=== PATIENT | female | born 1955 | race American Indian/Alaskan Native ===

== ENCOUNTER 2018-03-03 17:13 | Inpatient (IN) | payer MEDICAID ==
--- NOTE | 2018-03-03 17:52 | Emergency Department Report ---
ED CPR HPI - General Stated Complaint: CARDIAC ARREST Time Seen by Provider: 03/03/18 17:13 Source: EMS Mode of arrival: Stretcher Limitations: Altered Mental Status, Physical Limitation - History of Present Illness MD Complaint: found unresponsive Place: NH/SNF Bystander CPR Performed: No AED Applied by Bystander/It Field Technician: No Shock Advised: No Initial Findings in the Field: unresponsive, no respirations, no pulse ROSC in the Field: Yes Associated Injuries: No Treatments Prior to Arrival: intubation, chest compressions, epinephrine mgs # ( 3), sodium bicarbonate, glucose, other (narcan) - Related Data Home Medications Medication Instructions Recorded Confirmed Last Taken Methimazole [Tapazole] 5 mg PO DAILY 03/03/18 03/03/18 Unknown Metoprolol Xl [Metoprolol 100 mg PO DAILY 03/03/18 03/03/18 Unknown SUCCINATE ER TAB] Morphine Sulfate [Morphine Sulfate 7.5 mg PO Q4-6H PRN 03/03/18 03/03/18 Unknown IR] Nitrofurantoin Macrocrystal 100 mg PO BID 03/03/18 03/03/18 Unknown [Nitrofurantoin] Omeprazole 20 mg PO DAILY 03/03/18 03/03/18 Unknown Allergies Allergy/AdvReac Type Severity Reaction Status Date / Time No Known Allergies Allergy Unverified 03/03/18 18:07 ED Review of Systems ROS: Stated complaint: CARDIAC ARREST Other details as noted in HPI Comment: Unobtainable due to pts medical conditions ED Past Medical Hx - Past Medical History Previous Medical History?: Yes Hx Hypertension: Yes - Surgical History Past Surgical History?: Yes - Family History Family history: no significant - Social History Smoking Status: Unknown if ever smoked Substance Use Type: Other (unknown) - Medications Home Medications: Home Medications Medication Instructions Recorded Confirmed Last Taken Type Methimazole [Tapazole] 5 mg PO DAILY 03/03/18 03/03/18 Unknown History Metoprolol Xl [Metoprolol 100 mg PO DAILY 03/03/18 03/03/18 Unknown History SUCCINATE ER TAB] Morphine Sulfate [Morphine Sulfate 7.5 mg PO Q4-6H PRN 03/03/18 03/03/18 Unknown History IR] Nitrofurantoin Macrocrystal 100 mg PO BID 03/03/18 03/03/18 Unknown History [Nitrofurantoin] Omeprazole 20 mg PO DAILY 03/03/18 03/03/18 Unknown History ED Physical Exam - General Limitations: Altered Mental Status, Physical Limitation General appearance: obtunded - Head Head exam: Present: atraumatic, normocephalic - Eye Eye exam: Present: other (post fixed and dilated). Absent: PERRL Pupils: Absent: normal accommodation - ENT ENT exam: Present: mucous membranes dry - Neck Neck exam: Present: normal inspection - Respiratory Respiratory exam: Present: normal lung sounds bilaterally, other (ET tube placement verified with bilateral breath sounds. No sounds over the epigastrium ) - Cardiovascular Cardiovascular Exam: Present: regular rate, normal rhythm. Absent: systolic murmur, diastolic murmur, rubs, gallop - GI/Abdominal GI/Abdominal exam: Present: soft, hypoactive bowel sounds. Absent: distended - Extremities Exam Extremities exam: Present: normal inspection - Neurological Exam Neurological exam: Present: altered - Skin Skin exam: Present: warm, dry, intact, normal color. Absent: rash ED Course Vital Signs 03/03/18 03/03/18 03/03/18 17:20 17:39 18:20 Temperature 97.3 F L Pulse Rate 91 H 74 80 Respiratory 18 Rate Blood Pressure 41/23 70/40 91/39 O2 Sat by Pulse 100 100 100 Oximetry 03/03/18 03/03/18 03/03/18 18:30 18:33 18:40 Temperature Pulse Rate 73 69 Respiratory 17 18 18 Rate Blood Pressure 76/36 72/35 O2 Sat by Pulse 99 87 93 Oximetry 03/03/18 03/03/18 03/03/18 18:50 19:00 19:10 Temperature Pulse Rate 71 68 72 Respiratory 18 17 18 Rate Blood Pressure 83/38 83/36 90/54 O2 Sat by Pulse 99 95 99 Oximetry 03/03/18 03/03/18 03/03/18 19:21 19:30 19:40 Temperature Pulse Rate 81 72 72 Respiratory 18 18 18 Rate Blood Pressure 138/72 101/60 108/63 O2 Sat by Pulse 100 96 Oximetry 03/03/18 03/03/18 03/03/18 19:50 20:00 20:10 Temperature Pulse Rate 75 77 78 Respiratory 18 18 24 Rate Blood Pressure 114/55 120/65 118/73 O2 Sat by Pulse 96 95 95 Oximetry 03/03/18 03/03/18 03/03/18 20:30 20:45 21:00 Temperature Pulse Rate 66 66 63 Respiratory 24 24 24 Rate Blood Pressure 116/59 110/65 103/67 O2 Sat by Pulse 99 99 99 Oximetry 03/03/18 03/03/18 03/03/18 21:15 21:31 21:45 Temperature Pulse Rate 61 60 58 L Respiratory 24 24 24 Rate Blood Pressure 101/63 101/23 90/68 O2 Sat by Pulse 100 100 100 Oximetry 03/03/18 03/03/18 03/03/18 22:01 22:15 22:30 Temperature Pulse Rate 57 L 78 52 L Respiratory 23 25 H 24 Rate Blood Pressure 58/26 174/84 57/35 O2 Sat by Pulse 100 100 100 Oximetry 03/03/18 22:45 Temperature Pulse Rate 50 L Respiratory 21 Rate Blood Pressure 107/56 O2 Sat by Pulse 100 Oximetry - Reevaluation(s) Reevaluation #1: Patient arrived via EMS. Per EMS, patient was found down for an unknown amount of time no respirations or pulses noted. CPR was initiated ACLS meds given ROS see in the field. EMS placed patient on a epi drip at 101. Blood pressure is low. palpable pulse noted. Will continue to monitor vital signs her blood pressure. We'll give bicarbonate for acidosis. ABG reviewed. We'll adjust treatment when necessary 03/03/18 17:05 Reevaluation #2: Blood pressure dropped again patient is hypotensive. We'll start a saline bolus again. Patient responded well to bolus, her blood pressure stabilized. 03/03/18 23: Reevaluation #3: Blood pressure is stabilizing. Patient continues to have bullous antibiotics were started and patient continue on the epinephrine drip 03/03/18 23:45 - Consultations Consultation #1: Discussed case with hospitalist. Hospitalist consulted for admission. Hospitalist to admit patient. Dr. Rai to assume care. 03/03/18 22:00 - EJ/Peripheral Line Neck R Time Out Performed: Yes Indications: nurses unable to establis Skin Cleansed in Sterile Fashion: Yes Size: 20 Dressing Placed: Tegaderm, tape Patient Tolerated Procedure: well ED Medical Decision Making - Lab Data Result diagrams: 03/03/18 19:31 03/03/18 19:31 - EKG Data -: EKG Interpreted by Me EKG shows normal: sinus rhythm, axis, QRS complexes, ST-T waves - EKG Data Interpretation: other (prolonged q-t) - Radiology Data Radiology results: report reviewed chest xr shows left pna and et in good position. - Medical Decision Making Patient is 62-year-old female that presents emergency room with status post cardiac respiratory arrest. Patient has been resuscitated. Positive ROSC. Patient to be admitted to the hospitalist service for further evaluation treatment. Patient was admitted to the ICU. Patient found to have a left lung pneumonia on chest x-ray. Patient will be treating accordingly. Patient was found to have a metabolic/respiratory acidosis as well as lactic acidosis. Hospitalist to assume care. - Differential Diagnosis cardia arrest. pna. sepsis. arrythmia/ Critical care attestation.: If time is entered above; I have spent that time in minutes in the direct care of this critically ill patient, excluding procedure time. Critical Care Time: 55 minutes spent for cc time ED Disposition Clinical Impression: Cardiac arrest, Respiratory arrest, Signs of return of spontaneous circulation , Respiratory acidosis, Metabolic acidosis, Lactic acid acidosis Sepsis Qualifiers: Sepsis type: sepsis due to unspecified organism Qualified Code(s): A41.9 - Sepsis, unspecified organism Pneumonia Qualifiers: Pneumonia type: due to unspecified organism Laterality: left Lung location: unspecified part of lung Qualified Code(s): J18.9 - Pneumonia, unspecified organism Disposition: 09 OP ADMIT IP TO THIS HOSP Is pt being admited?: Yes Does the pt Need Aspirin: No Condition: Critical Time of Disposition: 21:54
[2018-03-03] MEDS ORDERED: NACL 0.9% 1000 ML 1,000 ML IV ONE (17:57)
[2018-03-03] MEDS ORDERED: ADRENALIN 8 MG in NACL 0.9% 250ML 242 ML IV ONE (18:00)
--- NOTE | 2018-03-03 19:09 | XRay Report ---
FINAL REPORT PROCEDURE: XR CHEST 1V AP TECHNIQUE: Chest radiograph anteroposterior view. CPT 15037 HISTORY: Chest Pain COMPARISON: No prior studies are available for comparison. FINDINGS: Heart: Normal. Mediastinum/Vessels: Normal. Lungs/Pleural space: Large irregular area of consolidation is noted involving left mid and lower lung. Right lung and bilateral pleural spaces are clear.. Bony thorax: No acute osseous abnormality. Life support devices: Endotracheal tube is terminating at the level of huber projecting into the right main bronchus.. IMPRESSION: Consolidation left lung consistent with pneumonia Endotracheal tube is terminating at the level of huber projecting into the right main bronchus..
[2018-03-03] MEDS ORDERED: SODIUM BICARBONATE IV ONE ×2 (20:11→20:12)
[2018-03-03] MEDS: SODIUM BICARBONATE IV ONE ×2 (20:21→22:57)
[2018-03-03 20:29] LABS: Alanine Aminotransferase 423 units/L (7-56); Albumin 1.7 g/dL (3.9-5); BUN/Creatinine Ratio 10; Blood Urea Nitrogen 11 mg/dL (7-17); Calcium 7.8 mg/dL (8.4-10.2); Hemolysis Index 12
[2018-03-03 20:33] LABS: Hematocrit 28.7 % (30.3-42.9); Hemoglobin 9.3 gm/dl (10.1-14.3); Mean Corpuscular HGB Conc 33 % (30-34); Mean Corpuscular Hemoglobin 29 pg (28-32); Mean Corpuscular Volume 88 fl (79-97); Platelet Count 145 K/mm3 (140-440); Red Blood Count 3.28 M/mm3 (3.65-5.03)
[2018-03-03 20:37] LABS: Red Cell Distribution Width 20.9 % (13.2-15.2)
[2018-03-03 20:46] LABS: Chol/HDL Ratio 5.57 %; HDL Cholesterol 19 mg/dL (40-59); LDL Cholesterol,Direct 45 mg/dL (50-130)
[2018-03-03] MEDS ORDERED: ZOSYN/NS 3.375GM/50ML 3.375 GM/50 ML BAG IV ONE (21:50)
[2018-03-03 21:58] LABS: Anisocytosis 1+; Band Neutrophils # (Manual) 0.3 K/mm3; Basophils % (Manual) 0 % (0.0-1.8); Total Cells Counted 100
[2018-03-03 21:59] LABS: Platelet Estimate Consistent w Auto
[2018-03-03] MEDS ORDERED: VANCOMYCIN PHARMACY TO DOSE IV SCH (22:00)
[2018-03-03] MEDS ORDERED: VANCOMYCIN/NS 1 GM/250 ML 1 GM/250 ML BAG IV SCH (22:00)
[2018-03-03] MEDS ORDERED: VANCOMYCIN 750 MG in NACL 0.9% 250ML 250 ML IV ONE (22:00)
[2018-03-03] MEDS ORDERED: NACL 0.9% 1000 ML 2,000 ML IV ONE (22:00)
[2018-03-03] MEDS ORDERED: NACL 0.9% 1000 ML 1,000 ML ONE (22:12)
[2018-03-03] MEDS ORDERED: TYLENOL PR PRN (23:00)
[2018-03-04 00:51] LABS: Creatine Kinase MB 4.1 ng/mL (0.0-4.0)
[2018-03-04] MEDS ORDERED: NACL 0.9% 1000 ML 2,000 ML IV ONE (01:00)
[2018-03-04] MEDS ORDERED: NACL 0.9% 1000 ML 1,000 ML ONE (01:55)
[2018-03-04 02:55] LABS: Amphetamine Screen,Urine PRESUMPTIVE NEGATIVE; Benzodiazepines Screen,Urine PRESUMPTIVE NEGATIVE; Cannabinoid Screen,Urine PRESUMPTIVE NEGATIVE; Cocaine Screen,Urine PRESUMPTIVE NEGATIVE; Methadone Screen,Urine PRESUMPTIVE NEGATIVE
[2018-03-04 03:31] LABS: Opiate Screen,Urine PRESUMPTIVE POSITIVE
[2018-03-04] MEDS ORDERED: NACL 0.9% 1000 ML 2,000 ML ONE (04:53)
[2018-03-04] MEDS: ZOSYN/NS 3.375GM/50ML 3.375 GM/50 ML BAG IV SCH ×3 (06:26→23:23)
[2018-03-04] MEDS ORDERED: SODIUM BICARBONATE IV ONE (06:41)
[2018-03-04] MEDS ORDERED: NACL 0.9% 1000 ML 1,000 ML IV SCH (07:00)
--- NOTE | 2018-03-04 07:28 | History and Physical Report ---
CHIEF COMPLAINT: Cardiac arrest presentation. HISTORY OF PRESENT ILLNESS: The patient is a 62-year-old female brought in as a case of cardiac arrest and was subjected to resuscitation involving cardiopulmonary resuscitation and patient's vital signs were restored. The patient was noted to be unresponsive in the field with no respiration and no pulse and brought in as a case of cardiac arrest. She was intubated and had chest compression with IV epinephrine, sodium bicarb, given prior to arrival at the Emergency Room. PAST MEDICAL HISTORY: Pertinent for hypertension. PAST SURGICAL HISTORY: Not known. FAMILY HISTORY: Noncontributory. SOCIAL HISTORY: Obtained from Emergency Room record as showing that it is unknown if patient ever smoked or if patient ever tried illicit drug. MEDICATIONS: The patient's home medications involve methimazole 5 mg by mouth daily, metoprolol XL 100 mg by mouth daily, morphine sulfate IR 7.5 mg by mouth every 4-6 hours as needed for pain, nitrofurantoin 100 mg by mouth twice daily, omeprazole 20 mg by mouth daily. ALLERGIES: There are no known drug allergies. REVIEW OF SYSTEMS: CONSTITUTIONAL: There was no report of fever or chills or diaphoresis. HEENT: There was no report of headache or sore throat. CARDIOVASCULAR SYSTEM: There was no report of chest pain, but there was report of cardiac infarct. RESPIRATORY SYSTEM: There was report of loss of respiratory effort and breathing with no cough. GASTROINTESTINAL SYSTEM: There was no nausea, no vomiting, no abdominal pain, diarrhea, or constipation. NEUROLOGICAL SYSTEM: There was report of unresponsiveness and altered mental status. MUSCULOSKELETAL SYSTEM: There was no report of joint pain or swelling. DERMATOLOGICAL SYSTEM: There was no report of skin rash or itching. GENITOURINARY SYSTEM: There was no report of dysuria, hematuria, or flank pain. Rest of system review was unremarkable. PHYSICAL EXAMINATION: GENERAL: At the time of exam, the patient was status post cardiac arrest, intubated, mechanically ventilated, and unresponsive. VITAL SIGNS: Initially at the time of presentation shows temperature of 97.3 degrees Fahrenheit, pulse of 91, respiration only through mechanical ventilation, blood pressure of 41/23, O2 sat of 100% via endotracheal tube and mechanical ventilation. HEENT: Shows patient's pupils to be reacting to light sluggishly. NECK: Supple with no JVD or carotid bruits. CARDIOVASCULAR SYSTEM: Show normal first and second heart sounds with no gallops or murmurs. RESPIRATORY SYSTEM: Show good air entry on both sides of the lung via ET tube and mechanical ventilation. GASTROINTESTINAL SYSTEM: Show abdomen to be full, soft, nontender with no organomegaly or rigidity. NEUROLOGIC: Shows patient to be unresponsive, intubated, and mechanically ventilated with no focal deficit elicited at this time. MUSCULOSKELETAL SYSTEM: Show no joint swelling or tenderness. DERMATOLOGICAL SYSTEM: Show no skin rash. GENITOURINARY SYSTEM: Show no costovertebral angle tenderness. PERTINENT LABORATORY AND IMAGING STUDIES: The patient's CBC show elevated white count of 14,600 with low hemoglobin of 9.3 and low hematocrit of 28.7 with CBC differential showing elevated segmented neutrophil of 79%. The patient's ABG showed low pH of 6.83 and elevated pCO2 of 64.2 with high pO2 of 272 with normal O2 sat of 99% and this was done on FiO2 of 100%. The patient's chemistry shows normal sodium, normal potassium with elevated lactic acid of 13.2 with repeat of 13.1. The patient's calcium level was low with a value of 7.8 and liver transaminases show high value of 2089 for AST and high value of 723 for ALT with elevated alkaline phosphatase of 160. The patient's troponin level was high with a value of 0.063. Brain natriuretic peptide level was high with a value of 2107 with low albumin level of 1.7. The patient's urine drug screen is positive for opiate. IMAGING STUDIES: The patient had chest x-ray done that shows left lung opacity consistent with pneumonia. DIAGNOSES: 1. Status post cardiac arrest with resuscitation done successfully. 2. Lactic acidosis. 3. Left lung pneumonia. PLAN: 1. The patient will be admitted to ICU high. 2. The patient will continue IV epinephrine drip to maintain blood pressure and also continue IV normal saline at 125 mL an hour. 3. The patient will continue IV vancomycin with Pharmacy to dose which was started in the Emergency Room and also IV Zosyn 3.375 grams q.8 hours. 4. The patient will have critical care consult with Dr. Urbina for ICU admission. 5. The patient will have Cardiology consult with Dr. Eli for cardiopulmonary arrest with elevated troponin level. 6. The patient will have respiratory therapy consult to attend to the ventilator. 7. The patient will be on Tylenol 650 mg rectally every 4 hours for fever and headache and DVT prophylaxis will be through heparin 5000 units subq q.12 hours. JOB# [id number] OCN/NTS CALIND
--- NOTE | 2018-03-04 10:01 | Consultation ---
History of Present Illness - Reason for Consult Consult date: 03/04/18 septic shock pneumonia Requesting physician: KAELYN PINEDA - History of Present Illness 62 y/o female with history of HTN and drug abuse; admitted on 03/04/18 after personal assisted cardiac arrest. Patient was found unresponsive at personal assisted. CPR initiated by EMS. Pt intubated by EMS and reportedly was resuscitated in the field with ROSC and then transferred to the ER. Patient is intubated currently unbale to provide a history. In the ED, temp 97.3, HR 81, R27, BP 41/32. WBC 14.6. Hg 9.3. Plat 145. PH 6.8. Creat 1.1. Lactate 13. UDS+opioids. CXR showed Left sided consolidation. Microbiology: Blood cultures: Urine cultures: Respiratory cultures: Wound cultures: Stool cultures: Other: Current Antimicrobials: Zosyn Vancomycin Previous Antimicrobials: Medications and Allergies Allergies Allergy/AdvReac Type Severity Reaction Status Date / Time No Known Allergies Allergy Unverified 03/03/18 18:07 Home Medications Medication Instructions Recorded Confirmed Last Taken Type Methimazole [Tapazole] 5 mg PO DAILY 03/03/18 03/03/18 Unknown History Metoprolol Xl [Metoprolol 100 mg PO DAILY 03/03/18 03/03/18 Unknown History SUCCINATE ER TAB] Morphine Sulfate [Morphine Sulfate 7.5 mg PO Q4-6H PRN 03/03/18 03/03/18 Unknown History IR] Nitrofurantoin Macrocrystal 100 mg PO BID 03/03/18 03/03/18 Unknown History [Nitrofurantoin] Omeprazole 20 mg PO DAILY 03/03/18 03/03/18 Unknown History Active Meds: Active Medications Acetaminophen (Tylenol) 650 mg VA Q4H PRN PRN Reason: Fever >101 Heparin Sodium (Porcine) (Heparin) 5,000 unit SUB-Q Q12HR BRANDON Epinephrine 8 mg/ Sodium (Chloride) 250 mls @ 0.93 mls/hr IV TITR ONE; Protocol Stop: 03/14/18 22:49 Last Titration: 03/04/18 07:33 Dose: 10 mcg/min, 18.75 mls/hr Piperacillin Sod/Tazobactam Sod (Zosyn/Ns 3.375gm/50ml) 3.375 gm in 50 mls @ 100 mls/hr IV Q8HR BRANDON; Protocol Last Admin: 03/04/18 06:26 Dose: 100 mls/hr Vancomycin HCl 500 mg/ Sodium (Chloride) 100 mls @ 100 mls/hr IV Q24H BRANDON Sodium Chloride (Nacl 0.9% 1000 Ml) 1,000 mls @ 75 mls/hr IV DIRECT BRANDON Vancomycin HCl (Vancomycin Pharmacy To Dose) 1 each IV PKCONSULT BRANDON Physical Examination - Physical Exam Narrative exam: General appearance: sedated intubated Eyes: anicteric sclerae, moist conjunctivae; no lid-lag; PERRLA HENT: Atraumatic; oropharynx +ETT, OGT Neck: Trachea midline; supple, no thyromegaly or lymphadenopathy Lungs: +analilia rhonchi CV: tachy Abdomen: Soft, non-tender; no masses or hepatosplenomegaly Extremities: No peripheral edema or extremity lymphadenopathy Skin: Normal temperature, turgor and texture; no rash, ulcers or subcutaneous nodules Psych: sedated Neuro: sedated Lines: - Constitutional Vitals: Vital Signs Temp Pulse Resp BP Pulse Ox 97.3 F L 66 12 123/65 94 03/03/18 17:20 03/04/18 07:50 03/04/18 06:45 03/04/18 07:50 03/04/18 07:50 Temperature -Last 24 Hours Temperature 97.3 F Results - Labs CBC & Chem 7: 03/04/18 14:30 03/04/18 14:30 Labs: Abnormal lab results 03/03/18 03/03/18 03/03/18 Range/Units 17:41 19:31 19:31 WBC 14.6 H (4.5-11.0) K/mm3 RBC 3.28 L (3.65-5.03) M/mm3 Hgb 9.3 L (10.1-14.3) gm/dl Hct 28.7 L (30.3-42.9) % RDW 20.9 H (13.2-15.2) % Seg Neuts % (Manual) 79.0 H (40.0-70.0) % Seg Neutrophils # Man 11.5 H (1.8-7.7) K/mm3 POC ABG pH 6.867 L (7.35-7.45) POC ABG pCO2 64.2 H (35-45) POC ABG pO2 272 H (80-105) Chloride 97.4 L (98-107) mmol/L Carbon Dioxide 16 L (22-30) mmol/L Glucose 140 H (65-100) mg/dL POC Glucose (70-105) Lactic Acid (0.7-2.0) mmol/L Calcium 7.8 L (8.4-10.2) mg/dL AST 2089 H (5-40) units/L ALT 423 H (7-56) units/L Alkaline Phosphatase 160 H (35-129) units/L Total Creatine Kinase (30-135) units/L CK-MB (CK-2) (0.0-4.0) ng/mL Troponin T 0.063 H (0.00-0.029) ng/mL NT-Pro-B Natriuret Pep 2107 H (0-900) pg/mL Total Protein 5.4 L (6.3-8.2) g/dL Albumin 1.7 L (3.9-5) g/dL LDL Cholesterol Direct 45 L (50-130) mg/dL HDL Cholesterol 19 L (40-59) mg/dL 03/03/18 03/03/18 03/03/18 Range/Units 19:31 20:10 20:56 WBC (4.5-11.0) K/mm3 RBC (3.65-5.03) M/mm3 Hgb (10.1-14.3) gm/dl Hct (30.3-42.9) % RDW (13.2-15.2) % Seg Neuts % (Manual) (40.0-70.0) % Seg Neutrophils # Man (1.8-7.7) K/mm3 POC ABG pH 7.131 L (7.35-7.45) POC ABG pCO2 49.2 H (35-45) POC ABG pO2 (80-105) Chloride (98-107) mmol/L Carbon Dioxide (22-30) mmol/L Glucose (65-100) mg/dL POC Glucose (70-105) Lactic Acid 13.20 H* 12.90 H* (0.7-2.0) mmol/L Calcium (8.4-10.2) mg/dL AST (5-40) units/L ALT (7-56) units/L Alkaline Phosphatase (35-129) units/L Total Creatine Kinase (30-135) units/L CK-MB (CK-2) (0.0-4.0) ng/mL Troponin T (0.00-0.029) ng/mL NT-Pro-B Natriuret Pep (0-900) pg/mL Total Protein (6.3-8.2) g/dL Albumin (3.9-5) g/dL LDL Cholesterol Direct (50-130) mg/dL HDL Cholesterol (40-59) mg/dL 03/03/18 03/04/18 03/04/18 Range/Units 21:41 04:34 08:39 WBC (4.5-11.0) K/mm3 RBC (3.65-5.03) M/mm3 Hgb (10.1-14.3) gm/dl Hct (30.3-42.9) % RDW (13.2-15.2) % Seg Neuts % (Manual) (40.0-70.0) % Seg Neutrophils # Man (1.8-7.7) K/mm3 POC ABG pH 7.151 L (7.35-7.45) POC ABG pCO2 (35-45) POC ABG pO2 230 H (80-105) Chloride (98-107) mmol/L Carbon Dioxide (22-30) mmol/L Glucose (65-100) mg/dL POC Glucose 176 H (70-105) Lactic Acid 13.10 H* (0.7-2.0) mmol/L Calcium (8.4-10.2) mg/dL AST (5-40) units/L ALT (7-56) units/L Alkaline Phosphatase (35-129) units/L Total Creatine Kinase (30-135) units/L CK-MB (CK-2) (0.0-4.0) ng/mL Troponin T (0.00-0.029) ng/mL NT-Pro-B Natriuret Pep (0-900) pg/mL Total Protein (6.3-8.2) g/dL Albumin (3.9-5) g/dL LDL Cholesterol Direct (50-130) mg/dL HDL Cholesterol (40-59) mg/dL 07/23/18 Range/Units Unknown WBC (4.5-11.0) K/mm3 RBC (3.65-5.03) M/mm3 Hgb (10.1-14.3) gm/dl Hct (30.3-42.9) % RDW (13.2-15.2) % Seg Neuts % (Manual) (40.0-70.0) % Seg Neutrophils # Man (1.8-7.7) K/mm3 POC ABG pH (7.35-7.45) POC ABG pCO2 (35-45) POC ABG pO2 (80-105) Chloride (98-107) mmol/L Carbon Dioxide (22-30) mmol/L Glucose (65-100) mg/dL POC Glucose (70-105) Lactic Acid (0.7-2.0) mmol/L Calcium (8.4-10.2) mg/dL AST (5-40) units/L ALT (7-56) units/L Alkaline Phosphatase (35-129) units/L Total Creatine Kinase 497 H (30-135) units/L CK-MB (CK-2) 4.1 H (0.0-4.0) ng/mL Troponin T 0.053 H (0.00-0.029) ng/mL NT-Pro-B Natriuret Pep (0-900) pg/mL Total Protein (6.3-8.2) g/dL Albumin (3.9-5) g/dL LDL Cholesterol Direct (50-130) mg/dL HDL Cholesterol (40-59) mg/dL Assessment and Plan Assessment: 1) S/P [id number] cardiac arrest 2) Shock post cardiac arrest ? cardiac ?septic: source ? lungs 3) Left pneumonia ? aspiration 4) Acute respiratory failure 5) Acute encephalopathy 6) Severe lactic acidosis Plan: -obtain blood cx, UA, urine cx, sputum cultures -obtain CRP, procalcitonin -am cortisol, TSH -continue zosyn and vanco renally dosed -CT chest, abd, pelvis when stable Very poor prognosis Thank you for your consultation, will follow up with you. Ana Dumont MD Infectious Diseases Specialist [facility] ([facility] M [phone] O [phone]
[2018-03-04] MEDS: HEPARIN SUB-Q SCH ×2 (11:53→23:25)
[2018-03-04] MEDS: PEPCID IV SCH ×2 (11:53→23:23)
--- NOTE | 2018-03-04 12:25 | Consultation ---
History of Present Illness Consult date: 03/04/18 Reason for consult: other (cardiac arrest, respiratory failure/mechanical ventilation, shock) History of present illness: Called to evaluate case of a 62-year-old female, who presented to the ER after EMS arrived at her home following a cardiac arrest. The patient reportedly was resuscitated in the field with ROSC and then transferred to the ER. We have very little information on her, reportedly she was in some type of support home and once on some terminal morphine also. Nurses reported to me that it was history also prior drug abuse. The patient is currently intubated on the mechanical platelets of support at the ICU. No additional information at this time. Review of the pulse intubation films showed a left lung infiltrate Past History Past Medical History: No medical history Medications and Allergies Allergies Allergy/AdvReac Type Severity Reaction Status Date / Time No Known Allergies Allergy Unverified 03/03/18 18:07 Home Medications Medication Instructions Recorded Confirmed Last Taken Type Methimazole [Tapazole] 5 mg PO DAILY 03/03/18 03/03/18 Unknown History Metoprolol Xl [Metoprolol 100 mg PO DAILY 03/03/18 03/03/18 Unknown History SUCCINATE ER TAB] Morphine Sulfate [Morphine Sulfate 7.5 mg PO Q4-6H PRN 03/03/18 03/03/18 Unknown History IR] Nitrofurantoin Macrocrystal 100 mg PO BID 03/03/18 03/03/18 Unknown History [Nitrofurantoin] Omeprazole 20 mg PO DAILY 03/03/18 03/03/18 Unknown History Active Meds: Active Medications Acetaminophen (Tylenol) 650 mg [place] Q4H PRN PRN Reason: Fever >101 Famotidine (Pepcid) 20 mg IV BID [facility] Last Admin: 03/04/18 11:53 Dose: 20 mg Heparin Sodium (Porcine) (Heparin) 5,000 unit SUB-Q Q12HR [facility] Last Admin: 03/04/18 11:53 Dose: 5,000 unit Piperacillin Sod/Tazobactam Sod (Zosyn/Ns 3.375gm/50ml) 3.375 gm in 50 mls @ 100 mls/hr IV Q8HR [facility]; Protocol Last Admin: 03/04/18 06:26 Dose: 100 mls/hr Vancomycin HCl 500 mg/ Sodium (Chloride) 100 mls @ 100 mls/hr IV Q24H [facility] Sodium Chloride (Nacl 0.9% 1000 Ml) 1,000 mls @ 75 mls/hr IV DIRECT [facility] Last Admin: 03/04/18 11:50 Dose: 75 mls/hr Epinephrine 8 mg/ Sodium (Chloride) 250 mls @ 0.93 mls/hr IV TITR [facility]; Protocol Norepinephrine (Levophed Drip 4 Mg/Ns 250 Ml) 4 mg in 250 mls @ 7.5 mls/hr IV TITR [facility]; Protocol Vancomycin HCl (Vancomycin Pharmacy To Dose) 1 each IV PKCONSULT [facility] Review of Systems ROS unobtainable: due to endotracheal tube, due to mental status Physical Examination Vital signs: Vital Signs Temp Pulse BP Pulse Ox 97.3 F L 91 H 41/23 100 03/03/18 17:20 03/03/18 17:20 03/03/18 17:20 03/03/18 17:20 General appearance: comatose, other Eyes: non-icteric Neck: no JVD (intubated orally) Ascultation: Bilateral: clear, rhonchi (occasional) Cardiovascular: regular rate and rhythm (tachycardic) Gastrointestinal: normoactive bowel sounds, non-distended Integumentary: normal Extremities: no edema, other (left pretibial IO line in place) Results - Laboratory Findings CBC and BMP: 03/03/18 19:31 03/03/18 19:31 ABG POC ABG pH 7.147 (7.35-7.45) L 03/04/18 10:52 POC ABG pCO2 42.5 (35-45) 03/04/18 10:52 POC ABG pO2 66 (80-105) L 03/04/18 10:52 POC ABG HCO3 14.7 03/04/18 10:52 POC ABG Total CO2 16 03/04/18 10:52 POC ABG O2 Sat 86 03/04/18 10:52 Abnormal lab findings: Abnormal Labs 03/03/18 03/03/18 03/03/18 17:41 19:31 19:31 WBC 14.6 H RBC 3.28 L Hgb 9.3 L Hct 28.7 L RDW 20.9 H Seg Neuts % (Manual) 79.0 H Seg Neutrophils # Man 11.5 H POC ABG pH 6.867 L POC ABG pCO2 64.2 H POC ABG pO2 272 H Chloride 97.4 L Carbon Dioxide 16 L Glucose 140 H POC Glucose Lactic Acid Calcium 7.8 L AST 2089 H ALT 423 H Alkaline Phosphatase 160 H Total Creatine Kinase CK-MB (CK-2) Troponin T 0.063 H NT-Pro-B Natriuret Pep 2107 H Total Protein 5.4 L Albumin 1.7 L LDL Cholesterol Direct 45 L HDL Cholesterol 19 L 03/03/18 03/03/18 03/03/18 19:31 20:10 20:56 WBC RBC Hgb Hct RDW Seg Neuts % (Manual) Seg Neutrophils # Man POC ABG pH 7.131 L POC ABG pCO2 49.2 H POC ABG pO2 Chloride Carbon Dioxide Glucose POC Glucose Lactic Acid 13.20 H* 12.90 H* Calcium AST ALT Alkaline Phosphatase Total Creatine Kinase CK-MB (CK-2) Troponin T NT-Pro-B Natriuret Pep Total Protein Albumin LDL Cholesterol Direct HDL Cholesterol 03/03/18 03/04/18 03/04/18 21:41 04:34 08:39 WBC RBC Hgb Hct RDW Seg Neuts % (Manual) Seg Neutrophils # Man POC ABG pH 7.151 L POC ABG pCO2 POC ABG pO2 230 H Chloride Carbon Dioxide Glucose POC Glucose 176 H Lactic Acid 13.10 H* Calcium AST ALT Alkaline Phosphatase Total Creatine Kinase CK-MB (CK-2) Troponin T NT-Pro-B Natriuret Pep Total Protein Albumin LDL Cholesterol Direct HDL Cholesterol 03/04/18 03/04/18 10:52 Unknown WBC RBC Hgb Hct RDW Seg Neuts % (Manual) Seg Neutrophils # Man POC ABG pH 7.147 L POC ABG pCO2 POC ABG pO2 66 L Chloride Carbon Dioxide Glucose POC Glucose Lactic Acid Calcium AST ALT Alkaline Phosphatase Total Creatine Kinase 497 H CK-MB (CK-2) 4.1 H Troponin T 0.053 H NT-Pro-B Natriuret Pep Total Protein Albumin LDL Cholesterol Direct HDL Cholesterol - Diagnostic Findings Chest x-ray: report reviewed, image reviewed Assessment and Plan Cardiorespiratory arrest. Cause unknown. Patient with multiple chemical changes including increasing cardiac markers Acute respiratory failure. Secondary to the above. On ventilatory support Metabolic and respiratory acidosis, high anion gap Aspiration pneumonia LT lung ? CHF with high BNP Metabolic encephalopathy, hypoxic Recommendations Serial BP monitoring Keep MAP > 65 Monitor UO, keep > 30 cc/ hr Serial lactate levels q 6-8 hr x 4 Monitor BS NSS bolus 500 cc as needed to keep MAP > 65 or to max. of 2 L PRBC if Hgb < 7 monitor for any bleeding f/u hospital ventilator bundle, Mechanical ventilation support, adjust FiO2 with goal of maintaining oximetry at or above 92% Titrate PEEP up to maintain oximetry of the above oximetry level Set tidal Volume set initially at 6-8 cm PBW for MADISYN protection Keep PIP < 30 Sedation as needed for patient comfort, adjust to RASS -1 to - 3 Maintain extubation precautions Daily morning sedation vacation and initiate SBT if deemed appropriate DVT prophylaxis PPI prophylaxis Cardiology consult appreciated, agree with echocardiogram We'll discontinue IO line once PICC line is placed No family available for chest discussion. Critical care time was 60 minutes of [id number] evaluation and coordination of care
--- NOTE | 2018-03-04 13:15 | XRay Report ---
AP CHEST: HISTORY: PICC line placement Compared to 03/03/18. The endotracheal tube remains in adequate position. A nasogastric tube has been inserted which terminates in the fundus of the stomach. A left arm PICC has been inserted which terminates near the cavoatrial junction. Heart size is stable and within normal limits. Patchy infiltrate in the left lower lung and right upper lobe are stable since yesterday's exam. No large pleural effusion or pneumothorax has developed. Cardiac defibrillator pads are in place. IMPRESSION: Lines and tubes as described. Otherwise, no change since yesterday's exam.
[2018-03-04] MEDS: Vasostrict 20 UNIT in NACL 0.9% 100 ML IV SCH ×2 (13:35→23:57)
--- NOTE | 2018-03-04 14:20 | Consultation ---
History of Present Illness Consult date: 03/04/18 Requesting physician: ALEX WATSON Consult reason: cardiac arrest, elevated troponin History of present illness: The pt is a 62 YO female who is previously unknown to our practice. She is intubated and nonresponsive with no family at bedside on evaluation and thus HPI is obtained per the chart. She presented to the ER after EMS arrived at her home following a cardiac arrest. The patient reportedly was resuscitated in the field with ROSC and then transferred to the ER. We have very little information on her, reportedly she was in some type of personal long term. Since admission, she has been diagnosed with PNA, sepsis, metabolic and respiratory acidosis. She is currently hypothermic, requiring vasopressor support, and is noted to have dark red blood coming from NGT. Past History Past Medical History: No medical history Medications and Allergies Allergies Allergy/AdvReac Type Severity Reaction Status Date / Time No Known Allergies Allergy Unverified 03/03/18 18:07 Home Medications Medication Instructions Recorded Confirmed Last Taken Type Methimazole [Tapazole] 5 mg PO DAILY 03/03/18 03/03/18 Unknown History Metoprolol Xl [Metoprolol 100 mg PO DAILY 03/03/18 03/03/18 Unknown History SUCCINATE ER TAB] Morphine Sulfate [Morphine Sulfate 7.5 mg PO Q4-6H PRN 03/03/18 03/03/18 Unknown History IR] Nitrofurantoin Macrocrystal 100 mg PO BID 03/03/18 03/03/18 Unknown History [Nitrofurantoin] Omeprazole 20 mg PO DAILY 03/03/18 03/03/18 Unknown History Active Meds: Active Medications Acetaminophen (Tylenol) 650 mg [place] Q4H PRN PRN Reason: Fever >101 Famotidine (Pepcid) 20 mg IV BID [facility] Last Admin: 03/04/18 11:53 Dose: 20 mg Heparin Sodium (Porcine) (Heparin) 5,000 unit SUB-Q Q12HR [facility] Last Admin: 03/04/18 11:53 Dose: 5,000 unit Piperacillin Sod/Tazobactam Sod (Zosyn/Ns 3.375gm/50ml) 3.375 gm in 50 mls @ 100 mls/hr IV Q8HR [facility]; Protocol Last Admin: 03/04/18 06:26 Dose: 100 mls/hr Vancomycin HCl 500 mg/ Sodium (Chloride) 100 mls @ 100 mls/hr IV Q24H [facility] Sodium Chloride (Nacl 0.9% 1000 Ml) 1,000 mls @ 75 mls/hr IV DIRECT [facility] Last Admin: 03/04/18 11:50 Dose: 75 mls/hr Epinephrine 8 mg/ Sodium (Chloride) 250 mls @ 0.93 mls/hr IV TITR [facility]; Protocol Norepinephrine (Levophed Drip 4 Mg/Ns 250 Ml) 4 mg in 250 mls @ 7.5 mls/hr IV TITR [facility]; Protocol Phenylephrine HCl 100 mg/ (Sodium Chloride) 100 mls @ 3 mls/hr IV TITR [facility]; Protocol Vasopressin 20 unit/ Sodium (Chloride) 101 mls @ 9.09 mls/hr IV TITR [facility]; Protocol Last Admin: 03/04/18 13:35 Dose: 0.03 units/min, 9.09 mls/hr Vancomycin HCl (Vancomycin Pharmacy To Dose) 1 each IV PKCONSULT [facility] Review of Systems ROS unobtainable: due to endotracheal tube, due to mental status Physical Examination Vital Signs Temp Pulse BP Pulse Ox 97.3 F L 91 H 41/23 100 03/03/18 17:20 03/03/18 17:20 03/03/18 17:20 03/03/18 17:20 General appearance: other (intubated, nonresponsive, not on sedation) Cardiac: Positive: Reg Rate and Rhythm, S1/S2 Lungs: Positive: Decreased Breath Sounds, Oxygen, Ventilated Respirations Neuro: Positive: Other (intubated, nonresponsive, not on sedation) Skin: Negative: Rash, Wound Musculoskeletal: No Fluid Collection Extremities: Absent: edema Results 03/03/18 19:31 03/03/18 19:31 Cardiac Enzymes 03/03/18 03/04/18 Range/Units 19:31 Unknown AST 2089 H (5-40) units/L CK-MB (CK-2) 4.1 H (0.0-4.0) ng/mL Lipids 03/03/18 Range/Units 19:31 Triglycerides 102 (2-149) mg/dL Cholesterol 106 (50-199) mg/dL HDL Cholesterol 19 L (40-59) mg/dL Cholesterol/HDL Ratio 5.57 % CBC 03/03/18 Range/Units 19:31 WBC 14.6 H (4.5-11.0) K/mm3 RBC 3.28 L (3.65-5.03) M/mm3 Hgb 9.3 L (10.1-14.3) gm/dl Hct 28.7 L (30.3-42.9) % Plt Count 145 (140-440) K/mm3 Comprehensive Metabolic Panel 03/03/18 Range/Units 19:31 Sodium 139 (137-145) mmol/L Potassium 4.6 (3.6-5.0) mmol/L Chloride 97.4 L (98-107) mmol/L Carbon Dioxide 16 L (22-30) mmol/L BUN 11 (7-17) mg/dL Creatinine 1.1 (0.7-1.2) mg/dL Glucose 140 H (65-100) mg/dL Calcium 7.8 L (8.4-10.2) mg/dL AST 2089 H (5-40) units/L ALT 423 H (7-56) units/L Alkaline Phosphatase 160 H (35-129) units/L Total Protein 5.4 L (6.3-8.2) g/dL Albumin 1.7 L (3.9-5) g/dL - Imaging and Cardiology Echo: pending EKG: report reviewed, image reviewed EKG interpretations - Telemetry EKG Rhythm: Sinus Rhythm - EKG Sinus rhythms and dysrhythmias: sinus rhythm Assessment and Plan Obtain echo. Cont to trend [place] and repeat EKG in AM. Cont supportive measures. Wean vasopressors and vent as tolerated. The patient has been seen in conjunction with Dr. Light who agrees with the assessment and plan of care. - Patient Problems (1) Cardiopulmonary arrest with successful resuscitation Current Visit: Yes Status: Acute (2) Respiratory failure requiring intubation Current Visit: Yes Status: Acute (3) Altered mental status Current Visit: Yes Status: Acute (4) Pneumonia Current Visit: Yes Status: Acute Qualifiers: Pneumonia type: due to unspecified organism Laterality: left Lung location: unspecified part of lung Qualified Code(s): J18.9 - Pneumonia, unspecified organism (5) Sepsis Current Visit: Yes Status: Acute Qualifiers: Sepsis type: sepsis due to unspecified organism Qualified Code(s): A41.9 - Sepsis, unspecified organism (6) Metabolic acidosis Current Visit: Yes Status: Acute (7) GI bleed Current Visit: Yes Status: Suspected (8) Anemia Current Visit: Yes Status: Acute (9) Elevated troponin Current Visit: Yes Status: Acute (10) Transaminitis Current Visit: Yes Status: Acute (11) Malnutrition Current Visit: Yes Status: Chronic
--- NOTE | 2018-03-04 14:49 | Event Note ---
Date: 03/04/18 Patient seen and examined, remains unresponsive. ID and nutrition consult placed. Poor prognosis. Continue ICU care
[2018-03-04] MEDS: LEVOPHED DRIP 4 MG/NS 250 ML 4 MG/250 ML BAG IV SCH ×4 (15:03→22:04)
[2018-03-04 15:04] LABS: Hematocrit 30.4 % (30.3-42.9); Hemoglobin 9.6 gm/dl (10.1-14.3); Mean Corpuscular HGB Conc 32 % (30-34); Mean Corpuscular Hemoglobin 27 pg (28-32); Mean Corpuscular Volume 86 fl (79-97); Platelet Count 176 K/mm3 (140-440); Red Blood Count 3.54 M/mm3 (3.65-5.03)
[2018-03-04] MEDS: ADRENALIN 8 MG in NACL 0.9% 250ML 242 ML IV SCH ×2 (15:04→17:31)
[2018-03-04 15:37] LABS: Albumin 1.8 g/dL (3.9-5); Calcium 6.5 mg/dL (8.4-10.2)
[2018-03-04 15:55] LABS: Monocytes # (Auto) 1.4 K/mm3 (0.0-0.8); Monocytes % (Auto) 6.4 % (0.0-7.3)
[2018-03-04 16:25] LABS: Band Neutrophils # (Manual) 1.5 K/mm3; Basophils % (Manual) 0 % (0.0-1.8); Eosinophils % (Manual) 0 % (0.0-4.3); Total Cells Counted 100
[2018-03-04 16:26] LABS: Anisocytosis 1+; Crenated RBC 2+; Ovalocytes 1+
[2018-03-04 16:27] LABS: Large Platelets 1+; Platelet Estimate Consistent w Auto
[2018-03-04] MEDS ORDERED: SODIUM BICARBONATE 100 MEQ in NACL 0.9% 1000 ML 1,000 ML IV ONE (17:00)
[2018-03-04] MEDS ORDERED: CALCIUM GLUCONATE 1,000 MG in NACL 0.9% 100 ML IV ONE (18:45)
[2018-03-04] MEDS ORDERED: NACL 0.45% 1000 ML 1,000 ML with SODIUM BICARBONATE 75 MEQ IV SCH (19:00)
[2018-03-04] MEDS ORDERED: NACL 0.45% 1000 ML 1,000 ML with SODIUM BICARBONATE 75 MEQ IV ONE (19:00)
[2018-03-04] MEDS ORDERED: KIONEX PO ONE (20:00)
[2018-03-04] MEDS ORDERED: VANCOMYCIN VIAL 500 MG in NACL 0.9% 100 ML IV SCH (22:00)
[2018-03-05] MEDS: LEVOPHED DRIP 4 MG/NS 250 ML 4 MG/250 ML BAG IV SCH ×9 (00:23→19:54)
[2018-03-05] MEDS: ADRENALIN 8 MG in NACL 0.9% 250ML 242 ML IV SCH ×2 (02:33→15:22)
[2018-03-05] MEDS: NEO-SYNEPHRINE 100 MG in NACL 0.9% 90 ML IV SCH ×4 (02:38→15:23)
[2018-03-05] MEDS ORDERED: SODIUM BICARBONATE IV ONE ×5 (06:21→21:30)
[2018-03-05] MEDS ORDERED: SODIUM BICARBONATE 75 MEQ in NACL 0.45% 1000 ML 1,000 ML IV SCH (07:00)
[2018-03-05 09:35] LABS: Hematocrit 21.5 % (30.3-42.9); Hemoglobin 6.9 gm/dl (10.1-14.3); Mean Corpuscular HGB Conc 32 % (30-34); Mean Corpuscular Hemoglobin 27 pg (28-32); Mean Corpuscular Volume 85 fl (79-97); Red Blood Count 2.54 M/mm3 (3.65-5.03)
[2018-03-05 09:41] LABS: Platelet Count 73 K/mm3 (140-440); Red Cell Distribution Width 20.7 % (13.2-15.2)
[2018-03-05] MEDS: PEPCID IV SCH (09:43)
[2018-03-05] MEDS ORDERED: D50W (25GM) Syringe IV ONE ×2 (09:48→11:00)
[2018-03-05] MEDS: HEPARIN SUB-Q SCH ×2 (10:01→22:00)
--- NOTE | 2018-03-05 10:04 | Progress Note ---
Assessment and Plan Cardiorespiratory arrest. Cause unknown. Patient with multiple chemical changes including increasing cardiac markers Preliminary echo report with normal ejection fraction, possibly hyperdynamic ventricle, over 50% fluctuation on IVC I did check R/L venous femoral and poplitial veins sites- no lesions and adequate compressibility noted Severe hyperglycemia. Sepsis? Acute respiratory failure. Secondary to the above. On ventilatory support Metabolic and respiratory acidosis, high anion gap Aspiration pneumonia LT lung ? CHF with high BNP Metabolic encephalopathy, hypoxic Recommendations D50 W given Extra NSS 1 LT bolus now Solucortef 250 mg IV now Keep MAP > 65 Monitor UO, keep > 30 cc/ hr Continue PRBC if Hgb < 7 monitor for any bleeding Mechanical ventilation support, adjust FiO2 down as tolerated Sedation as needed for patient comfort, adjust to RASS -1 to - 3 Maintain extubation precautions Cardiology consult appreciated, Prognosis grave with possibly bad outcome expected at this point. We will continue aggressive resuscitation and hope for the best No family available for chest discussion. Critical care time was 60 minutes of [id number] evaluation and coordination of care Subjective Date of service: 03/05/18 Interval history: Sedated and intubated, critically ill Objective Vital Signs - 12hr 03/04/18 03/04/18 03/04/18 22:16 22:30 22:46 Temperature Pulse Rate 104 H 104 H 104 H Respiratory 30 H 30 H 30 H Rate Blood Pressure 102/59 107/47 102/63 O2 Sat by Pulse 92 97 92 Oximetry 03/04/18 03/04/18 03/04/18 23:00 23:16 23:31 Temperature Pulse Rate 103 H 102 H 102 H Respiratory 30 H 30 H 30 H Rate Blood Pressure 106/51 106/51 107/45 O2 Sat by Pulse 94 Oximetry 03/04/18 03/04/18 03/05/18 23:45 23:57 00:00 Temperature Pulse Rate 102 H 103 H 105 H Respiratory 30 H 30 H Rate Blood Pressure 122/50 106/51 115/67 O2 Sat by Pulse 99 100 100 Oximetry 03/05/18 03/05/18 03/05/18 00:15 00:30 00:34 Temperature 100.3 F H Pulse Rate 102 H 104 H 103 H Respiratory 30 H 30 H 30 H Rate Blood Pressure 103/76 90/46 53/17 O2 Sat by Pulse 96 Oximetry 03/05/18 03/05/18 03/05/18 00:45 00:46 01:01 Temperature Pulse Rate 101 H 101 H 99 H Respiratory 30 H 30 H 30 H Rate Blood Pressure 113/59 90/46 96/58 O2 Sat by Pulse 100 Oximetry 03/05/18 03/05/18 03/05/18 01:04 01:15 01:30 Temperature Pulse Rate 100 H 102 H 96 H Respiratory 30 H 30 H 30 H Rate Blood Pressure 96/58 107/68 89/62 O2 Sat by Pulse 100 100 Oximetry 03/05/18 03/05/18 03/05/18 01:45 02:01 02:15 Temperature Pulse Rate 97 H 94 H 98 H Respiratory 30 H 30 H 30 H Rate Blood Pressure 107/68 123/44 97/55 O2 Sat by Pulse 100 95 100 Oximetry 03/05/18 03/05/18 03/05/18 02:31 02:45 03:01 Temperature Pulse Rate 93 H 94 H 96 H Respiratory 30 H 30 H 30 H Rate Blood Pressure 64/25 123/44 88/66 O2 Sat by Pulse 100 80 L Oximetry 03/05/18 03/05/18 03/05/18 03:16 03:19 03:30 Temperature 98.8 F Pulse Rate 91 H 92 H Respiratory 30 H 30 H Rate Blood Pressure 118/96 118/96 O2 Sat by Pulse 99 Oximetry 03/05/18 03/05/18 03/05/18 03:46 04:00 04:09 Temperature Pulse Rate 93 H 96 H 96 H Respiratory 30 H 30 H Rate Blood Pressure 145/59 115/44 115/44 O2 Sat by Pulse 97 97 97 Oximetry 03/05/18 03/05/18 03/05/18 04:10 04:16 04:30 Temperature Pulse Rate 100 H 99 H Respiratory 30 H 30 H 30 H Rate Blood Pressure 71/30 71/30 O2 Sat by Pulse 97 Oximetry 03/05/18 03/05/18 03/05/18 04:46 05:00 05:15 Temperature Pulse Rate 98 H 96 H 92 H Respiratory 30 H 30 H 30 H Rate Blood Pressure 115/44 96/73 115/93 O2 Sat by Pulse 98 Oximetry 03/05/18 03/05/18 03/05/18 05:30 05:46 06:00 Temperature Pulse Rate 94 H 97 H 98 H Respiratory 30 H 30 H 30 H Rate Blood Pressure 115/93 116/77 116/77 O2 Sat by Pulse 100 97 Oximetry 03/05/18 03/05/18 03/05/18 06:16 06:30 06:45 Temperature Pulse Rate 97 H 102 H 85 Respiratory 30 H 30 H 30 H Rate Blood Pressure 115/85 115/85 105/63 O2 Sat by Pulse 98 100 Oximetry 03/05/18 03/05/18 03/05/18 07:00 07:16 07:30 Temperature Pulse Rate 81 85 101 H Respiratory 30 H 30 H 30 H Rate Blood Pressure 105/63 88/70 97/67 O2 Sat by Pulse Oximetry 03/05/18 03/05/18 03/05/18 07:43 07:46 08:00 Temperature 97.4 F L Pulse Rate 93 H 94 H 93 H Respiratory 30 H 30 H Rate Blood Pressure 97/67 63/43 63/43 O2 Sat by Pulse 95 97 Oximetry Constitutional: comatose, other (endotracheal tube in position) Eyes: non-icteric Neck: no JVD (intubated orally) Ascultation: Bilateral: clear, diminished breath sounds, rhonchi (occasional) Cardiovascular: regular rate and rhythm (tachycardic) Gastrointestinal: normoactive bowel sounds, non-distended Integumentary: normal Extremities: no edema, other (left pretibial IO line in place) CBC and BMP: 03/05/18 08:57 03/05/18 08:57 ABG, PT/INR, D-dimer: ABG POC ABG pH 7.097 (7.35-7.45) L 03/05/18 06:05 POC ABG pCO2 31.5 (35-45) L 03/05/18 06:05 POC ABG pO2 197 (80-105) H 03/05/18 06:05 POC ABG HCO3 9.7 03/05/18 06:05 POC ABG Total CO2 11 03/05/18 06:05 POC ABG O2 Sat 99 03/05/18 06:05 Abnormal lab findings: Abnormal Labs 03/03/18 03/03/18 03/03/18 17:41 19:31 19:31 WBC 14.6 H RBC 3.28 L Hgb 9.3 L Hct 28.7 L MCH RDW 20.9 H Plt Count [place] # Seg Neuts % (Manual) 79.0 H Lymphocytes % (Manual) Seg Neutrophils # Seg Neutrophils # Man 11.5 H Lymphocytes # (Manual) POC ABG pH 6.867 L POC ABG pCO2 64.2 H POC ABG pO2 272 H Potassium Chloride 97.4 L Carbon Dioxide 16 L BUN Creatinine Glucose 140 H POC Glucose Lactic Acid Calcium 7.8 L Magnesium AST 2089 H ALT 423 H Alkaline Phosphatase 160 H Total Creatine Kinase CK-MB (CK-2) Troponin T 0.063 H C-Reactive Protein NT-Pro-B Natriuret Pep 2107 H Total Protein 5.4 L Albumin 1.7 L LDL Cholesterol Direct 45 L HDL Cholesterol 19 L 03/03/18 03/03/18 03/03/18 19:31 20:10 20:56 WBC RBC Hgb Hct MCH RDW Plt Count [place] # Seg Neuts % (Manual) Lymphocytes % (Manual) Seg Neutrophils # Seg Neutrophils # Man Lymphocytes # (Manual) POC ABG pH 7.131 L POC ABG pCO2 49.2 H POC ABG pO2 Potassium Chloride Carbon Dioxide BUN Creatinine Glucose POC Glucose Lactic Acid 13.20 H* 12.90 H* Calcium Magnesium AST ALT Alkaline Phosphatase Total Creatine Kinase CK-MB (CK-2) Troponin T C-Reactive Protein NT-Pro-B Natriuret Pep Total Protein Albumin LDL Cholesterol Direct HDL Cholesterol 03/03/18 03/04/18 03/04/18 21:41 04:34 08:39 WBC RBC Hgb Hct MCH RDW Plt Count [place] # Seg Neuts % (Manual) Lymphocytes % (Manual) Seg Neutrophils # Seg Neutrophils # Man Lymphocytes # (Manual) POC ABG pH 7.151 L POC ABG pCO2 POC ABG pO2 230 H Potassium Chloride Carbon Dioxide BUN Creatinine Glucose POC Glucose 176 H Lactic Acid 13.10 H* Calcium Magnesium AST ALT Alkaline Phosphatase Total Creatine Kinase CK-MB (CK-2) Troponin T C-Reactive Protein NT-Pro-B Natriuret Pep Total Protein Albumin LDL Cholesterol Direct HDL Cholesterol 03/04/18 03/04/18 03/04/18 10:52 14:30 14:30 WBC RBC Hgb Hct MCH RDW Plt Count [place] # Seg Neuts % (Manual) Lymphocytes % (Manual) Seg Neutrophils # Seg Neutrophils # Man Lymphocytes # (Manual) POC ABG pH 7.147 L POC ABG pCO2 POC ABG pO2 66 L Potassium 5.1 H Chloride Carbon Dioxide 14 L BUN 23 H Creatinine 2.0 H D Glucose 108 H POC Glucose Lactic Acid 10.50 H* Calcium 6.5 L D Magnesium AST 2380 H ALT 470 H Alkaline Phosphatase Total Creatine Kinase 5787 H CK-MB (CK-2) 41.0 H Troponin T 0.177 H* D C-Reactive Protein NT-Pro-B Natriuret Pep Total Protein 4.9 L Albumin 1.8 L LDL Cholesterol Direct HDL Cholesterol 03/04/18 03/04/18 03/04/18 14:30 14:30 14:32 WBC 21.2 H RBC 3.54 L Hgb 9.6 L Hct MCH 27 L RDW 21.0 H Plt Count [place] # 1.4 H Seg Neuts % (Manual) 87.0 H Lymphocytes % (Manual) 4.0 L Seg Neutrophils # 20.0 H Seg Neutrophils # Man 18.4 H Lymphocytes # (Manual) 0.8 L POC ABG pH 7.166 L POC ABG pCO2 POC ABG pO2 77 L Potassium Chloride Carbon Dioxide BUN Creatinine Glucose POC Glucose Lactic Acid Calcium Magnesium 1.60 L AST ALT Alkaline Phosphatase Total Creatine Kinase CK-MB (CK-2) Troponin T C-Reactive Protein NT-Pro-B Natriuret Pep Total Protein Albumin LDL Cholesterol Direct HDL Cholesterol 03/04/18 03/04/18 03/04/18 18:19 23:06 23:06 WBC RBC Hgb Hct MCH RDW Plt Count [place] # Seg Neuts % (Manual) Lymphocytes % (Manual) Seg Neutrophils # Seg Neutrophils # Man Lymphocytes # (Manual) POC ABG pH POC ABG pCO2 POC ABG pO2 Potassium Chloride Carbon Dioxide BUN Creatinine Glucose POC Glucose Lactic Acid 11.20 H* 10.60 H* Calcium Magnesium AST ALT Alkaline Phosphatase Total Creatine Kinase CK-MB (CK-2) Troponin T C-Reactive Protein 12.80 H NT-Pro-B Natriuret Pep Total Protein Albumin LDL Cholesterol Direct HDL Cholesterol 03/04/18 03/04/18 03/05/18 23:06 Unknown 06:05 WBC RBC Hgb Hct MCH RDW Plt Count [place] # Seg Neuts % (Manual) Lymphocytes % (Manual) Seg Neutrophils # Seg Neutrophils # Man Lymphocytes # (Manual) POC ABG pH 7.097 L POC ABG pCO2 31.5 L POC ABG pO2 197 H Potassium 5.3 H Chloride Carbon Dioxide BUN Creatinine Glucose POC Glucose Lactic Acid Calcium Magnesium AST ALT Alkaline Phosphatase Total Creatine Kinase 497 H CK-MB (CK-2) 4.1 H Troponin T 0.053 H C-Reactive Protein NT-Pro-B Natriuret Pep Total Protein Albumin LDL Cholesterol Direct HDL Cholesterol 03/05/18 03/05/18 03/05/18 08:57 08:57 08:57 WBC 15.2 H RBC 2.54 L Hgb 6.9 L Hct 21.5 L D MCH 27 L RDW 20.7 H Plt Count 73 L [place] # Seg Neuts % (Manual) Lymphocytes % (Manual) Seg Neutrophils # Seg Neutrophils # Man Lymphocytes # (Manual) POC ABG pH POC ABG pCO2 POC ABG pO2 Potassium 5.2 H Chloride Carbon Dioxide 15 L BUN 23 H Creatinine 2.1 H Glucose 6 L* POC Glucose Lactic Acid 12.10 H* Calcium 4.0 L* D Magnesium AST 3549 H ALT 536 H Alkaline Phosphatase Total Creatine Kinase CK-MB (CK-2) Troponin T C-Reactive Protein NT-Pro-B Natriuret Pep Total Protein 3.1 L D Albumin 1.0 L LDL Cholesterol Direct HDL Cholesterol
--- NOTE | 2018-03-05 10:04 | Consultation ---
History of Present Illness - Reason for Consult Consult date: 03/05/18 acute renal failure, hyperkalemia Requesting physician: KAELYN PINEDA - History of Present Illness 62 YO female who is previously unknown to our practice. She is intubated and nonresponsive with no family at bedside on evaluation and thus HPI is obtained per the chart. She presented to the ER after EMS arrived at her home following a cardiac arrest. The patient reportedly was resuscitated in the field with ROSC and then transferred to the ER. We have very little information on her, reportedly she was in some type of personal senior care. Since admission, she has been diagnosed with PNA, sepsis, metabolic and respiratory acidosis. She is currently hypothermic, requiring vasopressor support, and is noted to have dark red blood coming from NGT. Past History Past Medical History: No medical history Past Surgical History: Other (unalbe to obtain) Social history: other (unable to obtain, lives in personal senior care) Family history: other (unable to obtain) Medications and Allergies Allergies Allergy/AdvReac Type Severity Reaction Status Date / Time No Known Allergies Allergy Unverified 03/03/18 18:07 Home Medications Medication Instructions Recorded Confirmed Last Taken Type Methimazole [Tapazole] 5 mg PO DAILY 03/03/18 03/03/18 Unknown History Metoprolol Xl [Metoprolol 100 mg PO DAILY 03/03/18 03/03/18 Unknown History SUCCINATE ER TAB] Morphine Sulfate [Morphine Sulfate 7.5 mg PO Q4-6H PRN 03/03/18 03/03/18 Unknown History IR] Nitrofurantoin Macrocrystal 100 mg PO BID 03/03/18 03/03/18 Unknown History [Nitrofurantoin] Omeprazole 20 mg PO DAILY 03/03/18 03/03/18 Unknown History Active Meds: Active Medications Acetaminophen (Tylenol) 650 mg ID Q4H PRN PRN Reason: Fever >101 Dextrose (D50w (25gm) Syringe) 50 ml IV ONCE ONE Stop: 03/05/18 09:59 Famotidine (Pepcid) 20 mg IV DAILY [facility] Last Admin: 03/05/18 09:43 Dose: 20 mg Heparin Sodium (Porcine) (Heparin) 5,000 unit SUB-Q Q12HR [facility] Last Admin: 03/04/18 23:25 Dose: Not Given Epinephrine 8 mg/ Sodium (Chloride) 250 mls @ 0.93 mls/hr IV TITR BRANDON; Protocol Last Admin: 03/05/18 02:33 Dose: 10 mcg/min, 18.75 mls/hr Norepinephrine (Levophed Drip 4 Mg/Ns 250 Ml) 4 mg in 250 mls @ 7.5 mls/hr IV TITR BRANDON; Protocol Last Admin: 03/05/18 09:43 Dose: 30 mcg/min, 112.5 mls/hr Phenylephrine HCl 100 mg/ (Sodium Chloride) 100 mls @ 3 mls/hr IV TITR BRANDON; Protocol Last Admin: 03/05/18 07:04 Dose: 400 mcg/min, 24 mls/hr Vasopressin 20 unit/ Sodium (Chloride) 101 mls @ 9.09 mls/hr IV TITR BRANDON; Protocol Last Admin: 03/04/18 23:57 Dose: 0.03 units/min, 9.09 mls/hr Piperacillin Sod/Tazobactam Sod (Zosyn/Ns 2.25 Gm/50ml) 2.25 gm in 50 mls @ 100 mls/hr IV Q6HR BR[facility]ON Calcium Gluconate 2,000 mg/ (Sodium Chloride) 120 mls @ 660 mls/hr IV ONCE ONE Stop: 03/05/18 10:05 Sodium Bicarbonate 150 meq/ (Dextrose) 1,150 mls @ 125 mls/hr IV DIRECT [facility] Magnesium Sulfate (Magnesium Sulfate 2gm/50ml) 2 gm in 50 mls @ 25 mls/hr IV ONCE ONE Stop: 03/05/18 11:56 Vancomycin HCl (Vancomycin Pharmacy To Dose) 1 each IV PKCONSULT BR[facility]ON Review of Systems ROS unobtainable: due to endotracheal tube Exam - Vital Signs Vital signs: Vital Signs Temp Pulse BP Pulse Ox 97.3 F L 91 H 41/23 100 03/03/18 17:20 03/03/18 17:20 03/03/18 17:20 03/03/18 17:20 - Physical Exam Narrative exam: General appearance: other (intubated, nonresponsive, not on sedation) Cardiac: Positive: Reg Rate and Rhythm, S1/S2 Lungs: Positive: Decreased Breath Sounds, Oxygen, Ventilated Respirations Neuro: Positive: Other (intubated, nonresponsive, not on sedation) Skin: Negative: Rash, Wound Musculoskeletal: No Fluid Collection Extremities: Absent: edema Results - Lab Results 03/05/18 08:57 03/05/18 08:57 Most recent lab results Calcium 4.0 mg/dL (8.4-10.2) L* D 03/05/18 08:57 Magnesium 1.60 mg/dL (1.7-2.3) L 03/04/18 14:30 Assessment and Plan Impression: * NADIYA * Hyperkalemia * Metabolic acidosis * hypocalcemia * acute resp failure * s/p cardiac arrest * hypomagnesemia Plan: * nadiya due to ATN, keep MAP>65 * bicarbonate gtt * add d10 for hypoglycemia * replete calcium and mag prn * strict i/os * may need ATTORNEY LAW CLERK if refractory to iv therapy * avoid nephrotoxins
[2018-03-05] MEDS ORDERED: NACL 0.9% 1000 ML 1,000 ML ONE (10:15)
--- NOTE | 2018-03-05 10:18 | Progress Note ---
Assessment and Plan Assessment: 1) Kbs-qs-asfiixoc cardiac arrest 2) Shock post cardiac arrest ? cardiac ?less likely septic: source ? lungs. CRP= 12.8 3) Left pneumonia ? aspiration 4) Acute respiratory failure 5) Acute encephalopathy: ?anoxic brain injury 6) Severe lactic acidosis 7) Severe anemia, thrombocytopenia 8) JIM - worsening Plan: -f/u blood cx, UA, urine cx, sputum cultures, procalcitonin -continue zosyn and vanco renally dosed - D 2 -CT chest, abd, pelvis when stable -neuro consult -no family members available Very poor prognosis Thank you for your consultation, will follow up with you. Ana Dumont MD Infectious Diseases Specialist [facility] M [phone] O [phone] Subjective Date of service: 03/05/18 Principal diagnosis: shock Interval history: Remains critically ill comatose, no gag reflex or corneal reflex, no fever, on 4 pressors all maxed - alpesh, levo, vaso and epi Microbiology: Blood cultures: Urine cultures: Respiratory cultures: 03/04 ngtd Wound cultures: Current Antimicrobials: Zosyn Vancomycin Objective - Exam Narrative Exam: General appearance: comatose intubated Eyes: anicteric sclerae, moist conjunctivae; no lid-lag; minimal pupils reaction , no corneal reflex HENT: Atraumatic; oropharynx +ETT, OGT, NO gag reflex Neck: Trachea midline; supple, no thyromegaly or lymphadenopathy Lungs: +analilia rhonchi CV: tachy Abdomen: Soft, non-tender; no masses or hepatosplenomegaly Extremities: No peripheral edema or extremity lymphadenopathy Skin: Normal temperature, turgor and texture; no rash, ulcers or subcutaneous nodules Psych: comatose Neuro: comatose Lines: - Constitutional Vitals: Vital Signs Temp Pulse Resp BP Pulse Ox 97.4 F L 93 H 30 H 63/43 97 03/05/18 08:00 03/05/18 08:00 03/05/18 08:00 03/05/18 08:00 03/05/18 08:00 Temperature -Last 24 Hours Temperature 97.4 F Temperature 98.8 F Temperature 100.3 F Temperature 100.8 F Temperature 100.9 F Temperature 98.5 F - Labs CBC & Chem 7: 03/05/18 08:57 03/05/18 08:57 Labs: Abnormal lab results 03/04/18 03/04/18 03/04/18 Range/Units 10:52 14:30 14:30 WBC (4.5-11.0) K/mm3 RBC (3.65-5.03) M/mm3 Hgb (10.1-14.3) gm/dl Hct (30.3-42.9) % MCH (28-32) pg RDW (13.2-15.2) % Plt Count (140-440) K/mm3 [place] # (0.0-0.8) K/mm3 Seg Neuts % (Manual) (40.0-70.0) % Lymphocytes % (Manual) (13.4-35.0) % Seg Neutrophils # (1.8-7.7) K/mm3 Seg Neutrophils # Man (1.8-7.7) K/mm3 Lymphocytes # (Manual) (1.2-5.4) K/mm3 POC ABG pH 7.147 L (7.35-7.45) POC ABG pCO2 (35-45) POC ABG pO2 66 L (80-105) Potassium 5.1 H (3.6-5.0) mmol/L Carbon Dioxide 14 L (22-30) mmol/L BUN 23 H (7-17) mg/dL Creatinine 2.0 H D (0.7-1.2) mg/dL Glucose 108 H (65-100) mg/dL Lactic Acid 10.50 H* (0.7-2.0) mmol/L Calcium 6.5 L D (8.4-10.2) mg/dL Magnesium (1.7-2.3) mg/dL AST 2380 H (5-40) units/L ALT 470 H (7-56) units/L Total Creatine Kinase 5787 H (30-135) units/L CK-MB (CK-2) 41.0 H (0.0-4.0) ng/mL Troponin T 0.177 H* D (0.00-0.029) ng/mL C-Reactive Protein (0.00-1.30) mg/dL Total Protein 4.9 L (6.3-8.2) g/dL Albumin 1.8 L (3.9-5) g/dL 03/04/18 03/04/18 03/04/18 Range/Units 14:30 14:30 14:32 WBC 21.2 H (4.5-11.0) K/mm3 RBC 3.54 L (3.65-5.03) M/mm3 Hgb 9.6 L (10.1-14.3) gm/dl Hct (30.3-42.9) % MCH 27 L (28-32) pg RDW 21.0 H (13.2-15.2) % Plt Count (140-440) K/mm3 [place] # 1.4 H (0.0-0.8) K/mm3 Seg Neuts % (Manual) 87.0 H (40.0-70.0) % Lymphocytes % (Manual) 4.0 L (13.4-35.0) % Seg Neutrophils # 20.0 H (1.8-7.7) K/mm3 Seg Neutrophils # Man 18.4 H (1.8-7.7) K/mm3 Lymphocytes # (Manual) 0.8 L (1.2-5.4) K/mm3 POC ABG pH 7.166 L (7.35-7.45) POC ABG pCO2 (35-45) POC ABG pO2 77 L (80-105) Potassium (3.6-5.0) mmol/L Carbon Dioxide (22-30) mmol/L BUN (7-17) mg/dL Creatinine (0.7-1.2) mg/dL Glucose (65-100) mg/dL Lactic Acid (0.7-2.0) mmol/L Calcium (8.4-10.2) mg/dL Magnesium 1.60 L (1.7-2.3) mg/dL AST (5-40) units/L ALT (7-56) units/L Total Creatine Kinase (30-135) units/L CK-MB (CK-2) (0.0-4.0) ng/mL Troponin T (0.00-0.029) ng/mL C-Reactive Protein (0.00-1.30) mg/dL Total Protein (6.3-8.2) g/dL Albumin (3.9-5) g/dL 03/04/18 03/04/18 03/04/18 Range/Units 18:19 23:06 23:06 WBC (4.5-11.0) K/mm3 RBC (3.65-5.03) M/mm3 Hgb (10.1-14.3) gm/dl Hct (30.3-42.9) % MCH (28-32) pg RDW (13.2-15.2) % Plt Count (140-440) K/mm3 [place] # (0.0-0.8) K/mm3 Seg Neuts % (Manual) (40.0-70.0) % Lymphocytes % (Manual) (13.4-35.0) % Seg Neutrophils # (1.8-7.7) K/mm3 Seg Neutrophils # Man (1.8-7.7) K/mm3 Lymphocytes # (Manual) (1.2-5.4) K/mm3 POC ABG pH (7.35-7.45) POC ABG pCO2 (35-45) POC ABG pO2 (80-105) Potassium (3.6-5.0) mmol/L Carbon Dioxide (22-30) mmol/L BUN (7-17) mg/dL Creatinine (0.7-1.2) mg/dL Glucose (65-100) mg/dL Lactic Acid 11.20 H* 10.60 H* (0.7-2.0) mmol/L Calcium (8.4-10.2) mg/dL Magnesium (1.7-2.3) mg/dL AST (5-40) units/L ALT (7-56) units/L Total Creatine Kinase (30-135) units/L CK-MB (CK-2) (0.0-4.0) ng/mL Troponin T (0.00-0.029) ng/mL C-Reactive Protein 12.80 H (0.00-1.30) mg/dL Total Protein (6.3-8.2) g/dL Albumin (3.9-5) g/dL 03/04/18 03/05/18 03/05/18 Range/Units 23:06 06:05 08:57 WBC 15.2 H (4.5-11.0) K/mm3 RBC 2.54 L (3.65-5.03) M/mm3 Hgb 6.9 L (10.1-14.3) gm/dl Hct 21.5 L D (30.3-42.9) % MCH 27 L (28-32) pg RDW 20.7 H (13.2-15.2) % Plt Count 73 L (140-440) K/mm3 [place] # (0.0-0.8) K/mm3 Seg Neuts % (Manual) (40.0-70.0) % Lymphocytes % (Manual) (13.4-35.0) % Seg Neutrophils # (1.8-7.7) K/mm3 Seg Neutrophils # Man (1.8-7.7) K/mm3 Lymphocytes # (Manual) (1.2-5.4) K/mm3 POC ABG pH 7.097 L (7.35-7.45) POC ABG pCO2 31.5 L (35-45) POC ABG pO2 197 H (80-105) Potassium 5.3 H (3.6-5.0) mmol/L Carbon Dioxide (22-30) mmol/L BUN (7-17) mg/dL Creatinine (0.7-1.2) mg/dL Glucose (65-100) mg/dL Lactic Acid (0.7-2.0) mmol/L Calcium (8.4-10.2) mg/dL Magnesium (1.7-2.3) mg/dL AST (5-40) units/L ALT (7-56) units/L Total Creatine Kinase (30-135) units/L CK-MB (CK-2) (0.0-4.0) ng/mL Troponin T (0.00-0.029) ng/mL C-Reactive Protein (0.00-1.30) mg/dL Total Protein (6.3-8.2) g/dL Albumin (3.9-5) g/dL 03/05/18 03/05/18 Range/Units 08:57 08:57 WBC (4.5-11.0) K/mm3 RBC (3.65-5.03) M/mm3 Hgb (10.1-14.3) gm/dl Hct (30.3-42.9) % MCH (28-32) pg RDW (13.2-15.2) % Plt Count (140-440) K/mm3 [place] # (0.0-0.8) K/mm3 Seg Neuts % (Manual) (40.0-70.0) % Lymphocytes % (Manual) (13.4-35.0) % Seg Neutrophils # (1.8-7.7) K/mm3 Seg Neutrophils # Man (1.8-7.7) K/mm3 Lymphocytes # (Manual) (1.2-5.4) K/mm3 POC ABG pH (7.35-7.45) POC ABG pCO2 (35-45) POC ABG pO2 (80-105) Potassium 5.2 H (3.6-5.0) mmol/L Carbon Dioxide 15 L (22-30) mmol/L BUN 23 H (7-17) mg/dL Creatinine 2.1 H (0.7-1.2) mg/dL Glucose 6 L* (65-100) mg/dL Lactic Acid 12.10 H* (0.7-2.0) mmol/L Calcium 4.0 L* D (8.4-10.2) mg/dL Magnesium (1.7-2.3) mg/dL AST 3549 H (5-40) units/L ALT 536 H (7-56) units/L Total Creatine Kinase (30-135) units/L CK-MB (CK-2) (0.0-4.0) ng/mL Troponin T (0.00-0.029) ng/mL C-Reactive Protein (0.00-1.30) mg/dL Total Protein 3.1 L D (6.3-8.2) g/dL Albumin 1.0 L (3.9-5) g/dL
[2018-03-05] MEDS ORDERED: NACL 0.9% 500 ML 500 ML IV ONE ×3 (10:20→23:15)
[2018-03-05 10:40] LABS: Band Neutrophils # (Manual) 2.9 K/mm3; Basophils % (Manual) 0 % (0.0-1.8); Eosinophils % (Manual) 0 % (0.0-4.3); Total Cells Counted 100
[2018-03-05 10:41] LABS: Anisocytosis 1+; Crenated RBC 1+; Hypochromasia 1+; Large Platelets 1+; Platelet Estimate Consistent w Auto; Schistocytes Rare
[2018-03-05] MEDS ORDERED: CALCIUM GLUCONATE 2,000 MG in NACL 0.9% 100 ML IV ONE (11:00)
[2018-03-05] MEDS ORDERED: MAGNESIUM SULFATE 2GM/50ML 2 GM/50 ML BAG IV ONE (11:00)
[2018-03-05] MEDS: Vasostrict 20 UNIT in NACL 0.9% 100 ML IV SCH ×2 (11:24→23:29)
[2018-03-05] MEDS ORDERED: MAGNESIUM SULFATE 2 GM in NACL 0.9% 50 ML IV ONE (12:00)
--- NOTE | 2018-03-05 12:23 | Progress Note ---
Assessment and Plan Assessment and plan: Patient is a 62 year old female recently discharged from [facility] to a personal intermediate. Per career education teacher patient was homeless at the time of admission to [place] and no other information was available. The patient was found unresponsive and EMS called and patient was noted to have a pulseless arrest was intubated and transported ACLS to the hospital Out of hospital cardiac arrest Hypovoluemic shock Acute Respiratory Failure with hypoxia on Mechanical ventilation day 2 Combined Metabolic and Respiratory acidosis Acute metabolic encephalopathy Shock live syndrome JIM secondary to vasomotor nephropathy Pancytopenia ?Sepsis Severe Protein calorie malnutrition Severe Anemia Pancytopenia Type 2 CO Transaminitis PLAN Continue supportive care. Replace electrolytes Continue mechanical ventilation Registered Safety Engineer support noted, if no improvement in mental status will obtain Neurology mary Continue pressors Try to get records from [place] and see if there is family Poor prognosis DVT/GI prophy Plan discussed with consultants and career education teacher The high probability of a clinically significant, sudden or life threatening deterioration of the [pulmonary, cardiology,neurology] system(s) required my full and direct attention, intervention and personal management. The aggregate critical care time was [35] minutes. This time is in addition to time spent performing reported procedures but includes the following: [x] Data Review and interpretation [x] Patient assessment and monitoring of vital signs [x] Documentation [x] Medication orders and management History Interval history: Patient seen and examined, remains very unreponsive with none reactive pupil. Hospitalist Physical - Physical exam Narrative exam: General appearance: other (intubated, nonresponsive, not on sedation) Cardiac: Positive: Reg Rate and Rhythm, S1/S2 Lungs: Positive: Decreased Breath Sounds, Oxygen, Ventilated Respirations Abdomen:soft, hypoactive bs Musculoskeletal: No Fluid Collection Extremities: Absent: edema Neuro: Positive: Other (intubated, nonresponsive, not on sedation) Skin: Negative: Rash, Wound - Constitutional Vitals: Temp Pulse Resp BP Pulse Ox 97.4 F L 86 30 H 152/66 100 03/05/18 08:00 03/05/18 12:01 03/05/18 11:15 03/05/18 12:01 03/05/18 12:01 General appearance: Present: other (intubated, nonresponsive, not on sedation) Results - Labs CBC & Chem 7: 03/05/18 08:57 03/05/18 08:57 Labs: Laboratory Last Values WBC 15.2 K/mm3 (4.5-11.0) H 03/05/18 08:57 RBC 2.54 M/mm3 (3.65-5.03) L 03/05/18 08:57 Hgb 6.9 gm/dl (10.1-14.3) L 03/05/18 08:57 Hct 21.5 % (30.3-42.9) L D 03/05/18 08:57 MCV 85 fl (79-97) 03/05/18 08:57 MCH 27 pg (28-32) L 03/05/18 08:57 MCHC 32 % (30-34) 03/05/18 08:57 RDW 20.7 % (13.2-15.2) H 03/05/18 08:57 Plt Count 73 K/mm3 (140-440) L 03/05/18 08:57 Lymph % (Auto) Distribution Operation Supervisor 03/05/18 08:57 [place] % (Auto) Distribution Operation Supervisor 03/05/18 08:57 Eos % (Auto) Distribution Operation Supervisor 03/05/18 08:57 Baso % (Auto) Distribution Operation Supervisor 03/05/18 08:57 Lymph # Distribution Operation Supervisor 03/05/18 08:57 [place] # Distribution Operation Supervisor 03/05/18 08:57 Eos # Distribution Operation Supervisor 03/05/18 08:57 Baso # Distribution Operation Supervisor 03/05/18 08:57 Add Manual Diff Complete 03/05/18 08:57 Total Counted 100 03/05/18 08:57 Seg Neutrophils % Distribution Operation Supervisor 03/05/18 08:57 Seg Neuts % (Manual) 63.0 % (40.0-70.0) 03/05/18 08:57 Band Neutrophils % 19.0 % 03/05/18 08:57 Lymphocytes % (Manual) 8.0 % (13.4-35.0) L 03/05/18 08:57 Reactive Lymphs % (Man) 0 % 03/05/18 08:57 Monocytes % (Manual) 4.0 % (0.0-7.3) 03/05/18 08:57 Eosinophils % (Manual) 0 % (0.0-4.3) 03/05/18 08:57 Basophils % (Manual) 0 % (0.0-1.8) 03/05/18 08:57 Metamyelocytes % 6.0 % 03/05/18 08:57 Myelocytes % 0 % 03/05/18 08:57 Promyelocytes % 0 % 03/05/18 08:57 Blast Cells % 0 % 03/05/18 08:57 Nucleated RBC % Not Reportable 03/05/18 08:57 Seg Neutrophils # Distribution Operation Supervisor 03/05/18 08:57 Seg Neutrophils # Man 9.6 K/mm3 (1.8-7.7) H 03/05/18 08:57 Band Neutrophils # 2.9 K/mm3 03/05/18 08:57 Lymphocytes # (Manual) 1.2 K/mm3 (1.2-5.4) 03/05/18 08:57 Abs React Lymphs (Man) 0.0 K/mm3 03/05/18 08:57 Monocytes # (Manual) 0.6 K/mm3 (0.0-0.8) 03/05/18 08:57 Eosinophils # (Manual) 0.0 K/mm3 (0.0-0.4) 03/05/18 08:57 Basophils # (Manual) 0.0 K/mm3 (0.0-0.1) 03/05/18 08:57 Metamyelocytes # 0.9 K/mm3 03/05/18 08:57 Myelocytes # 0.0 K/mm3 03/05/18 08:57 Promyelocytes # 0.0 K/mm3 03/05/18 08:57 Blast Cells # 0.0 K/mm3 03/05/18 08:57 WBC Morphology Not Reportable 03/05/18 08:57 Hypersegmented Neuts Not Reportable 03/05/18 08:57 Hyposegmented Neuts Not Reportable 03/05/18 08:57 Hypogranular Neuts Not Reportable 03/05/18 08:57 Smudge Cells Not Reportable 03/05/18 08:57 Toxic Granulation Not Reportable 03/05/18 08:57 Toxic Vacuolation Not Reportable 03/05/18 08:57 Dohle Bodies Not Reportable 03/05/18 08:57 Pelger-Huet Anomaly Not Reportable 03/05/18 08:57 Juan Rods Not Reportable 03/05/18 08:57 Platelet Estimate Consistent w auto 03/05/18 08:57 Clumped Platelets Not Reportable 03/05/18 08:57 Plt Clumps, EDTA Not Reportable 03/05/18 08:57 Large Platelets 1+ 03/05/18 08:57 Giant Platelets Not Reportable 03/05/18 08:57 Platelet Satelliting Not Reportable 03/05/18 08:57 Plt Morphology Comment Not Reportable 03/05/18 08:57 RBC Morphology Not Reportable 03/05/18 08:57 Dimorphic RBCs Not Reportable 03/05/18 08:57 Polychromasia Not Reportable 03/05/18 08:57 Hypochromasia 1+ 03/05/18 08:57 Poikilocytosis Not Reportable 03/05/18 08:57 Anisocytosis 1+ 03/05/18 08:57 Microcytosis Not Reportable 03/05/18 08:57 Macrocytosis Not Reportable 03/05/18 08:57 Spherocytes Not Reportable 03/05/18 08:57 Pappenheimer Bodies Not Reportable 03/05/18 08:57 Sickle Cells Not Reportable 03/05/18 08:57 Target Cells Not Reportable 03/05/18 08:57 Tear Drop Cells Not Reportable 03/05/18 08:57 Ovalocytes Not Reportable 03/05/18 08:57 Helmet Cells Not Reportable 03/05/18 08:57 [place] Bodies Not Reportable 03/05/18 08:57 [place] Rings Not Reportable 03/05/18 08:57 [place] Cells Not Reportable 03/05/18 08:57 Bite Cells Not Reportable 03/05/18 08:57 Crenated Cell 1+ 03/05/18 08:57 Elliptocytes Not Reportable 03/05/18 08:57 Acanthocytes (Spur) Not Reportable 03/05/18 08:57 Rouleaux Not Reportable 03/05/18 08:57 Hemoglobin C Crystals Not Reportable 03/05/18 08:57 Schistocytes Rare 03/05/18 08:57 Malaria parasites Not Reportable 03/05/18 08:57 Bo Bodies Not Reportable 03/05/18 08:57 Hem Pathologist Commnt No 03/05/18 08:57 POC ABG pH 7.097 (7.35-7.45) L 03/05/18 06:05 POC ABG pCO2 31.5 (35-45) L 03/05/18 06:05 POC ABG pO2 197 (80-105) H 03/05/18 06:05 POC ABG HCO3 9.7 03/05/18 06:05 POC ABG Total CO2 11 03/05/18 06:05 POC ABG O2 Sat 99 03/05/18 06:05 POC ABG Base Excess -20 03/05/18 06:05 FiO2 100 % 03/05/18 06:05 Sodium 145 mmol/L (137-145) 03/05/18 08:57 Potassium 5.2 mmol/L (3.6-5.0) H 03/05/18 08:57 Chloride 106.4 mmol/L (98-107) 03/05/18 08:57 Carbon Dioxide 15 mmol/L (22-30) L 03/05/18 08:57 Anion Gap 29 mmol/L 03/05/18 08:57 BUN 23 mg/dL (7-17) H 03/05/18 08:57 Creatinine 2.1 mg/dL (0.7-1.2) H 03/05/18 08:57 Estimated GFR 29 ml/min 03/05/18 08:57 BUN/Creatinine Ratio 11 % 03/05/18 08:57 Glucose 6 mg/dL (65-100) L* 03/05/18 08:57 POC Glucose 176 (70-105) H 03/04/18 08:39 Lactic Acid 12.10 mmol/L (0.7-2.0) H* 03/05/18 08:57 Calcium 4.0 mg/dL (8.4-10.2) L* D 03/05/18 08:57 Magnesium 1.50 mg/dL (1.7-2.3) L 03/05/18 08:57 Total Bilirubin 1.20 mg/dL (0.1-1.2) 03/05/18 08:57 AST 3549 units/L (5-40) H 03/05/18 08:57 ALT 536 units/L (7-56) H 03/05/18 08:57 Alkaline Phosphatase 77 units/L (35-129) 03/05/18 08:57 Total Creatine Kinase 497 units/L (30-135) H 03/04/18 Unknown CK-MB (CK-2) 4.1 ng/mL (0.0-4.0) H 03/04/18 Unknown CK-MB (CK-2) Rel Index 0.8 (0-4) 03/04/18 Unknown Troponin T 0.053 ng/mL (0.00-0.029) H 03/04/18 Unknown C-Reactive Protein 12.80 mg/dL (0.00-1.30) H 03/04/18 23:06 NT-Pro-B Natriuret Pep 2107 pg/mL (0-900) H 03/03/18 19:31 Total Protein 3.1 g/dL (6.3-8.2) L D 03/05/18 08:57 Albumin 1.0 g/dL (3.9-5) L 03/05/18 08:57 Albumin/Globulin Ratio 0.5 % 03/05/18 08:57 Triglycerides 102 mg/dL (2-149) 03/03/18 19:31 Cholesterol 106 mg/dL (50-199) 03/03/18 19:31 LDL Cholesterol Direct 45 mg/dL (50-130) L 03/03/18 19:31 HDL Cholesterol 19 mg/dL (40-59) L 03/03/18 19:31 Cholesterol/HDL Ratio 5.57 % 03/03/18 19:31 Urine Opiates Screen Presumptive positive 03/04/18 02:30 Urine Methadone Screen Presumptive negative 03/04/18 02:30 Ur Barbiturates Screen Presumptive negative 03/04/18 02:30 Ur Phencyclidine Scrn Presumptive negative 03/04/18 02:30 Ur Amphetamines Screen Presumptive negative 03/04/18 02:30 U Benzodiazepines Scrn Presumptive negative 03/04/18 02:30 Urine Cocaine Screen Presumptive negative 03/04/18 02:30 U Marijuana (THC) Screen Presumptive negative 03/04/18 02:30 Drugs of Abuse Note Disclamer 03/04/18 02:30 Blood Type O POSITIVE 03/05/18 10:34 Antibody Screen Negative 03/05/18 10:34 Crossmatch See Detail 03/05/18 10:34
[2018-03-05] MEDS: ZOSYN/NS 2.25 GM/50ML 2.25 GM/50 ML BAG IV SCH ×2 (13:28→19:13)
--- NOTE | 2018-03-05 13:40 | Progress Note ---
Assessment and Plan Echo reviewed - TDS, EF 65-70%, mild to mod LVH, hyperdynamic LV, abnormal diastolic function, RA mildly dilated, mod TR, trace CA. Cont supportive measures. Wean vasopressors and vent as tolerated. Overall poor prognosis. The patient has been seen in conjunction with Dr. Light who agrees with the assessment and plan of care. - Patient Problems (1) Cardiopulmonary arrest with successful resuscitation Current Visit: Yes Status: Acute (2) Respiratory failure requiring intubation Current Visit: Yes Status: Acute (3) Altered mental status Current Visit: Yes Status: Acute (4) Pneumonia Current Visit: Yes Status: Acute Qualifiers: Pneumonia type: due to unspecified organism Laterality: left Lung location: unspecified part of lung Qualified Code(s): J18.9 - Pneumonia, unspecified organism (5) Sepsis Current Visit: Yes Status: Acute Qualifiers: Sepsis type: sepsis due to unspecified organism Qualified Code(s): A41.9 - Sepsis, unspecified organism (6) Metabolic acidosis Current Visit: Yes Status: Acute (7) GI bleed Current Visit: Yes Status: Suspected (8) Anemia Current Visit: Yes Status: Acute (9) Elevated troponin Current Visit: Yes Status: Acute (10) Transaminitis Current Visit: Yes Status: Acute (11) Malnutrition Current Visit: Yes Status: Chronic Subjective Date of service: 03/05/18 Principal diagnosis: shock Interval history: pt remains intubated, nonresponsive, not on sedation, requiring multiple vasopressors. no family at bedside. Objective Last Vital Signs Temp 97.4 F L 03/05/18 08:00 Pulse 75 03/05/18 12:46 Resp 30 H 03/05/18 12:46 BP 146/73 03/05/18 12:46 Pulse Ox 98 03/05/18 12:46 - Physical Examination General: Other (intubated, nonresponsive, not on sedation) HEENT: Positive: Other (pupils fixed) Cardiac: Positive: Reg Rate and Rhythm, S1/S2 Lungs: Positive: Decreased Breath Sounds, Oxygen, Ventilated Respirations Neuro: Positive: Other (intubated, nonresponsive, not on sedation) Skin: Negative: Rash, Wound Musculoskeletal: No Fluid Collection Extremities: Absent: edema - Labs and Meds Cardiac Enzymes 03/04/18 03/05/18 Range/Units 14:30 08:57 AST 2380 H 3549 H (5-40) units/L CK-MB (CK-2) 41.0 H (0.0-4.0) ng/mL CBC 03/04/18 03/05/18 Range/Units 14:30 08:57 WBC 21.2 H 15.2 H (4.5-11.0) K/mm3 RBC 3.54 L 2.54 L (3.65-5.03) M/mm3 Hgb 9.6 L 6.9 L (10.1-14.3) gm/dl Hct 30.4 21.5 L D (30.3-42.9) % Plt Count 176 73 L (140-440) K/mm3 Lymph # Plant Scientist [place] # 1.4 H Plant Scientist (0.0-0.8) K/mm3 Eos # 0.0 Plant Scientist (0.0-0.4) K/mm3 Baso # 0.0 Plant Scientist (0.0-0.1) K/mm3 Comprehensive Metabolic Panel 03/04/18 03/04/18 03/05/18 Range/Units 14:30 23:06 08:57 Sodium 145 145 (137-145) mmol/L Potassium 5.1 H 5.3 H 5.2 H (3.6-5.0) mmol/L Chloride 105.9 106.4 (98-107) mmol/L Carbon Dioxide 14 L 15 L (22-30) mmol/L BUN 23 H 23 H (7-17) mg/dL Creatinine 2.0 H D 2.1 H (0.7-1.2) mg/dL Glucose 108 H 6 L* (65-100) mg/dL Calcium 6.5 L D 4.0 L* D (8.4-10.2) mg/dL AST 2380 H 3549 H (5-40) units/L ALT 470 H 536 H (7-56) units/L Alkaline Phosphatase 105 77 (35-129) units/L Total Protein 4.9 L 3.1 L D (6.3-8.2) g/dL Albumin 1.8 L 1.0 L (3.9-5) g/dL - Imaging and Cardiology EKG: report reviewed, image reviewed Echo: report reviewed (TDS, EF 65-70%, mild to mod LVH, hyperdynamic LV, abnormal diastolic function, RA mildly dilated, mod TR, trace CA. ) - Telemetry EKG Rhythm: Sinus Rhythm - EKG Sinus rhythms and dysrhythmias: sinus rhythm
[2018-03-05] MEDS: D10W 1,000 ML IV SCH (13:43)
[2018-03-05] MEDS ORDERED: NACL 0.9% 1000 ML 1,000 ML IV ONE (15:28)
[2018-03-05] MEDS: SODIUM BICARBONATE 150 MEQ in D5W 1,000 ML IV SCH (19:00)
[2018-03-05] MEDS: LEVOPHED 8 MG in NACL 0.9% 250ML 242 ML IV SCH (22:26)
[2018-03-06] MEDS: ZOSYN/NS 2.25 GM/50ML 2.25 GM/50 ML BAG IV SCH ×4 (00:10→18:28)
[2018-03-06] MEDS ORDERED: SODIUM BICARBONATE IV ONE (01:03)
[2018-03-06] MEDS: SODIUM BICARBONATE 150 MEQ in D5W 1,000 ML IV SCH ×3 (02:01→21:23)
[2018-03-06] MEDS: LEVOPHED 8 MG in NACL 0.9% 250ML 242 ML IV SCH ×6 (02:43→23:34)
[2018-03-06] MEDS: NEO-SYNEPHRINE 100 MG in NACL 0.9% 90 ML IV SCH ×5 (03:49→22:00)
[2018-03-06] MEDS: ADRENALIN 8 MG in NACL 0.9% 250ML 242 ML IV SCH (08:38)
--- NOTE | 2018-03-06 09:09 | Progress Note ---
Assessment and Plan Cardiorespiratory arrest. Cause unknown. Patient with multiple chemical changes including increasing cardiac markers Preliminary echo report with normal ejection fraction, possibly hyperdynamic ventricle, over 50% fluctuation on IVC I did check R/L venous femoral and poplitial veins sites- no lesions and adequate compressibility noted Severe hyperglycemia. Sepsis? Acute respiratory failure. Secondary to the above. On ventilatory support Metabolic and respiratory acidosis, high anion gap Aspiration pneumonia LT lung ? CHF with high BNP Metabolic encephalopathy, hypoxic Recommendations D50 W given Extra NSS 1 LT bolus now Solucortef 250 mg IV now Keep MAP > 65 Monitor UO, keep > 30 cc/ hr Continue PRBC if Hgb < 7 monitor for any bleeding Mechanical ventilation support, adjust FiO2 down as tolerated Sedation as needed for patient comfort, adjust to RASS -1 to - 3 Maintain extubation precautions Cardiology consult appreciated, Prognosis grave with possibly bad outcome expected at this point. We will continue aggressive resuscitation and hope for the best No family available for chest discussion. Critical care time was 60 minutes of [id number] evaluation and coordination of care Subjective Date of service: 03/06/18 Principal diagnosis: shock Interval history: Sedated and intubated, critically ill Objective Vital Signs - 12hr 03/05/18 03/05/18 03/05/18 21:16 21:30 21:46 Temperature Pulse Rate 91 H 92 H 93 H Respiratory 30 H 30 H 30 H Rate Blood Pressure 156/63 173/135 119/56 O2 Sat by Pulse 80 L 80 L 73 L Oximetry 03/05/18 03/05/18 03/05/18 22:00 22:15 22:30 Temperature Pulse Rate 96 H 91 H 95 H Respiratory 30 H 30 H 30 H Rate Blood Pressure 121/60 117/66 147/87 O2 Sat by Pulse 56 L 62 L 71 L Oximetry 03/05/18 03/05/18 03/05/18 22:45 23:00 23:15 Temperature Pulse Rate 98 H 99 H 108 H Respiratory 30 H 30 H 30 H Rate Blood Pressure 126/19 124/58 130/64 O2 Sat by Pulse 87 83 L 64 L Oximetry 03/05/18 03/05/18 03/05/18 23:30 23:32 23:42 Temperature 99.7 F H Pulse Rate 106 H 106 H 106 H Respiratory 30 H 30 H 30 H Rate Blood Pressure 115/61 115/61 115/61 O2 Sat by Pulse 73 L 75 L Oximetry 03/05/18 03/06/18 03/06/18 23:45 00:00 00:08 Temperature 99.6 F 98.5 F Pulse Rate 105 H 107 H Respiratory 30 H 30 H Rate Blood Pressure 112/61 130/58 O2 Sat by Pulse 66 L 78 L Oximetry 03/06/18 03/06/18 03/06/18 00:15 00:27 00:30 Temperature 99.5 F Pulse Rate 107 H 105 H Respiratory 30 H 30 H Rate Blood Pressure 128/63 129/66 O2 Sat by Pulse 69 L 75 L Oximetry 03/06/18 03/06/18 03/06/18 00:35 00:45 01:00 Temperature Pulse Rate 104 H 106 H 107 H Respiratory 30 H 29 H Rate Blood Pressure 129/66 125/64 129/61 O2 Sat by Pulse 67 L 70 L Oximetry 03/06/18 03/06/18 03/06/18 01:15 01:27 01:30 Temperature 99.5 F Pulse Rate 107 H 107 H Respiratory 30 H 30 H Rate Blood Pressure 129/67 106/59 O2 Sat by Pulse 73 L 73 L Oximetry 03/06/18 03/06/18 03/06/18 01:45 02:00 02:10 Temperature 98.7 F Pulse Rate 107 H 108 H Respiratory 30 H 30 H Rate Blood Pressure 120/61 116/61 O2 Sat by Pulse 68 L 71 L Oximetry 03/06/18 03/06/18 03/06/18 02:15 02:30 02:45 Temperature Pulse Rate 108 H 99 H 110 H Respiratory 31 H 30 H 30 H Rate Blood Pressure 117/59 117/59 91/61 O2 Sat by Pulse 73 L 74 L 86 Oximetry 03/06/18 03/06/18 03/06/18 03:00 03:16 03:30 Temperature Pulse Rate 104 H 105 H 108 H Respiratory 30 H 30 H 30 H Rate Blood Pressure 94/48 81/45 85/52 O2 Sat by Pulse 68 L 67 L 62 L Oximetry 03/06/18 03/06/18 03/06/18 03:45 04:00 04:15 Temperature 99.2 F Pulse Rate 106 H 104 H 108 H Respiratory 30 H 30 H 30 H Rate Blood Pressure 75/48 75/48 109/48 O2 Sat by Pulse 68 L 69 L 69 L Oximetry 03/06/18 03/06/18 03/06/18 04:30 04:45 05:00 Temperature Pulse Rate 108 H 109 H 115 H Respiratory 30 H 30 H 30 H Rate Blood Pressure 103/55 118/55 114/52 O2 Sat by Pulse 88 75 L 93 Oximetry 03/06/18 03/06/18 03/06/18 05:15 05:16 05:30 Temperature 100 F H Pulse Rate 111 H 117 H Respiratory 30 H 30 H Rate Blood Pressure 118/59 106/66 O2 Sat by Pulse 88 96 Oximetry 03/06/18 03/06/18 03/06/18 05:46 06:00 06:15 Temperature Pulse Rate 119 H 106 H 104 H Respiratory 30 H 30 H 30 H Rate Blood Pressure 113/59 106/54 O2 Sat by Pulse 96 97 100 Oximetry 03/06/18 03/06/18 03/06/18 06:30 06:45 07:34 Temperature Pulse Rate 114 H 117 H 110 H Respiratory 30 H 30 H Rate Blood Pressure 110/52 89/56 O2 Sat by Pulse 61 L 85 92 Oximetry Constitutional: comatose, other (endotracheal tube in position) Eyes: non-icteric Neck: no JVD (intubated orally) Ascultation: Bilateral: clear, diminished breath sounds, rhonchi (occasional) Cardiovascular: regular rate and rhythm (tachycardic) Gastrointestinal: normoactive bowel sounds, non-distended Integumentary: normal Extremities: no edema, other (left pretibial IO line in place) CBC and BMP: 03/05/18 08:57 03/05/18 08:57 ABG, PT/INR, D-dimer: ABG POC ABG pH 7.197 (7.35-7.45) L 03/06/18 07:34 POC ABG pCO2 29.8 (35-45) L 03/06/18 07:34 POC ABG pO2 74 (80-105) L 03/06/18 07:34 POC ABG HCO3 11.6 03/06/18 07:34 POC ABG Total CO2 12 03/06/18 07:34 POC ABG O2 Sat 91 03/06/18 07:34 Abnormal lab findings: Abnormal Labs 03/03/18 03/03/18 03/03/18 17:41 19:31 19:31 WBC 14.6 H RBC 3.28 L Hgb 9.3 L Hct 28.7 L MCH RDW 20.9 H Plt Count [place] # Seg Neuts % (Manual) 79.0 H Lymphocytes % (Manual) Seg Neutrophils # Seg Neutrophils # Man 11.5 H Lymphocytes # (Manual) POC ABG pH 6.867 L POC ABG pCO2 64.2 H POC ABG pO2 272 H Potassium Chloride 97.4 L Carbon Dioxide 16 L BUN Creatinine Glucose 140 H POC Glucose Lactic Acid Calcium 7.8 L Magnesium AST 2089 H ALT 423 H Alkaline Phosphatase 160 H Total Creatine Kinase CK-MB (CK-2) Troponin T 0.063 H C-Reactive Protein NT-Pro-B Natriuret Pep 2107 H Total Protein 5.4 L Albumin 1.7 L LDL Cholesterol Direct 45 L HDL Cholesterol 19 L Crossmatch 03/03/18 03/03/18 03/03/18 19:31 20:10 20:56 WBC RBC Hgb Hct MCH RDW Plt Count [place] # Seg Neuts % (Manual) Lymphocytes % (Manual) Seg Neutrophils # Seg Neutrophils # Man Lymphocytes # (Manual) POC ABG pH 7.131 L POC ABG pCO2 49.2 H POC ABG pO2 Potassium Chloride Carbon Dioxide BUN Creatinine Glucose POC Glucose Lactic Acid 13.20 H* 12.90 H* Calcium Magnesium AST ALT Alkaline Phosphatase Total Creatine Kinase CK-MB (CK-2) Troponin T C-Reactive Protein NT-Pro-B Natriuret Pep Total Protein Albumin LDL Cholesterol Direct HDL Cholesterol Crossmatch 03/03/18 03/04/18 03/04/18 21:41 04:34 08:39 WBC RBC Hgb Hct MCH RDW Plt Count [place] # Seg Neuts % (Manual) Lymphocytes % (Manual) Seg Neutrophils # Seg Neutrophils # Man Lymphocytes # (Manual) POC ABG pH 7.151 L POC ABG pCO2 POC ABG pO2 230 H Potassium Chloride Carbon Dioxide BUN Creatinine Glucose POC Glucose 176 H Lactic Acid 13.10 H* Calcium Magnesium AST ALT Alkaline Phosphatase Total Creatine Kinase CK-MB (CK-2) Troponin T C-Reactive Protein NT-Pro-B Natriuret Pep Total Protein Albumin LDL Cholesterol Direct HDL Cholesterol Crossmatch 03/04/18 03/04/18 03/04/18 10:52 14:30 14:30 WBC RBC Hgb Hct MCH RDW Plt Count [place] # Seg Neuts % (Manual) Lymphocytes % (Manual) Seg Neutrophils # Seg Neutrophils # Man Lymphocytes # (Manual) POC ABG pH 7.147 L POC ABG pCO2 POC ABG pO2 66 L Potassium 5.1 H Chloride Carbon Dioxide 14 L BUN 23 H Creatinine 2.0 H D Glucose 108 H POC Glucose Lactic Acid 10.50 H* Calcium 6.5 L D Magnesium AST 2380 H ALT 470 H Alkaline Phosphatase Total Creatine Kinase 5787 H CK-MB (CK-2) 41.0 H Troponin T 0.177 H* D C-Reactive Protein NT-Pro-B Natriuret Pep Total Protein 4.9 L Albumin 1.8 L LDL Cholesterol Direct HDL Cholesterol Crossmatch 03/04/18 03/04/18 03/04/18 14:30 14:30 14:32 WBC 21.2 H RBC 3.54 L Hgb 9.6 L Hct MCH 27 L RDW 21.0 H Plt Count [place] # 1.4 H Seg Neuts % (Manual) 87.0 H Lymphocytes % (Manual) 4.0 L Seg Neutrophils # 20.0 H Seg Neutrophils # Man 18.4 H Lymphocytes # (Manual) 0.8 L POC ABG pH 7.166 L POC ABG pCO2 POC ABG pO2 77 L Potassium Chloride Carbon Dioxide BUN Creatinine Glucose POC Glucose Lactic Acid Calcium Magnesium 1.60 L AST ALT Alkaline Phosphatase Total Creatine Kinase CK-MB (CK-2) Troponin T C-Reactive Protein NT-Pro-B Natriuret Pep Total Protein Albumin LDL Cholesterol Direct HDL Cholesterol Crossmatch 03/04/18 03/04/18 03/04/18 18:19 23:06 23:06 WBC RBC Hgb Hct MCH RDW Plt Count [place] # Seg Neuts % (Manual) Lymphocytes % (Manual) Seg Neutrophils # Seg Neutrophils # Man Lymphocytes # (Manual) POC ABG pH POC ABG pCO2 POC ABG pO2 Potassium Chloride Carbon Dioxide BUN Creatinine Glucose POC Glucose Lactic Acid 11.20 H* 10.60 H* Calcium Magnesium AST ALT Alkaline Phosphatase Total Creatine Kinase CK-MB (CK-2) Troponin T C-Reactive Protein 12.80 H NT-Pro-B Natriuret Pep Total Protein Albumin LDL Cholesterol Direct HDL Cholesterol Crossmatch 03/04/18 03/04/18 03/05/18 23:06 Unknown 06:05 WBC RBC Hgb Hct MCH RDW Plt Count [place] # Seg Neuts % (Manual) Lymphocytes % (Manual) Seg Neutrophils # Seg Neutrophils # Man Lymphocytes # (Manual) POC ABG pH 7.097 L POC ABG pCO2 31.5 L POC ABG pO2 197 H Potassium 5.3 H Chloride Carbon Dioxide BUN Creatinine Glucose POC Glucose Lactic Acid Calcium Magnesium AST ALT Alkaline Phosphatase Total Creatine Kinase 497 H CK-MB (CK-2) 4.1 H Troponin T 0.053 H C-Reactive Protein NT-Pro-B Natriuret Pep Total Protein Albumin LDL Cholesterol Direct HDL Cholesterol Crossmatch 03/05/18 03/05/18 03/05/18 08:57 08:57 08:57 WBC 15.2 H RBC 2.54 L Hgb 6.9 L Hct 21.5 L D MCH 27 L RDW 20.7 H Plt Count 73 L [place] # Seg Neuts % (Manual) Lymphocytes % (Manual) 8.0 L Seg Neutrophils # Seg Neutrophils # Man 9.6 H Lymphocytes # (Manual) POC ABG pH POC ABG pCO2 POC ABG pO2 Potassium 5.2 H Chloride Carbon Dioxide 15 L BUN 23 H Creatinine 2.1 H Glucose 6 L* POC Glucose Lactic Acid 12.10 H* Calcium 4.0 L* D Magnesium AST 3549 H ALT 536 H Alkaline Phosphatase Total Creatine Kinase CK-MB (CK-2) Troponin T C-Reactive Protein NT-Pro-B Natriuret Pep Total Protein 3.1 L D Albumin 1.0 L LDL Cholesterol Direct HDL Cholesterol Crossmatch 03/05/18 03/05/18 03/05/18 08:57 10:34 10:36 WBC RBC Hgb Hct MCH RDW Plt Count [place] # Seg Neuts % (Manual) Lymphocytes % (Manual) Seg Neutrophils # Seg Neutrophils # Man Lymphocytes # (Manual) POC ABG pH POC ABG pCO2 POC ABG pO2 Potassium Chloride Carbon Dioxide BUN Creatinine Glucose POC Glucose 236 H Lactic Acid Calcium Magnesium 1.50 L AST ALT Alkaline Phosphatase Total Creatine Kinase CK-MB (CK-2) Troponin T C-Reactive Protein NT-Pro-B Natriuret Pep Total Protein Albumin LDL Cholesterol Direct HDL Cholesterol Crossmatch See Detail 03/05/18 03/05/18 03/05/18 14:45 16:37 21:04 WBC RBC Hgb Hct MCH RDW Plt Count [place] # Seg Neuts % (Manual) Lymphocytes % (Manual) Seg Neutrophils # Seg Neutrophils # Man Lymphocytes # (Manual) POC ABG pH 7.058 L 7.055 L POC ABG pCO2 27.7 L 29.3 L POC ABG pO2 247 H 123 H Potassium Chloride Carbon Dioxide BUN Creatinine Glucose POC Glucose Lactic Acid 13.00 H* Calcium Magnesium AST ALT Alkaline Phosphatase Total Creatine Kinase CK-MB (CK-2) Troponin T C-Reactive Protein NT-Pro-B Natriuret Pep Total Protein Albumin LDL Cholesterol Direct HDL Cholesterol Crossmatch 03/06/18 03/06/18 03/06/18 00:36 04:59 07:34 WBC RBC Hgb Hct MCH RDW Plt Count [place] # Seg Neuts % (Manual) Lymphocytes % (Manual) Seg Neutrophils # Seg Neutrophils # Man Lymphocytes # (Manual) POC ABG pH 7.081 L 7.197 L POC ABG pCO2 28.2 L 29.8 L POC ABG pO2 74 L Potassium Chloride Carbon Dioxide BUN Creatinine Glucose POC Glucose 112 H Lactic Acid Calcium Magnesium AST ALT Alkaline Phosphatase Total Creatine Kinase CK-MB (CK-2) Troponin T C-Reactive Protein NT-Pro-B Natriuret Pep Total Protein Albumin LDL Cholesterol Direct HDL Cholesterol Crossmatch
[2018-03-06 09:11] LABS: Hematocrit 34.8 % (30.3-42.9); Hemoglobin 11.2 gm/dl (10.1-14.3); Mean Corpuscular HGB Conc 32 % (30-34); Mean Corpuscular Hemoglobin 28 pg (28-32); Mean Corpuscular Volume 88 fl (79-97); Red Blood Count 3.94 M/mm3 (3.65-5.03); Red Cell Distribution Width 19.6 % (13.2-15.2)
[2018-03-06 09:16] LABS: Platelet Count 73 K/mm3 (140-440)
--- NOTE | 2018-03-06 09:20 | Progress Note ---
Assessment and Plan Impression: * JIM * Hyperkalemia * Metabolic acidosis * hypocalcemia * acute resp failure * s/p cardiac arrest * hypomagnesemia Plan: * jim due to ATN, keep MAP>65 * bicarbonate gtt * added d10 for hypoglycemia * replete calcium and mag prn * follow up daily lytes * strict i/os * may need [employer] if refractory to iv therapy * avoid nephrotoxins Subjective Date of service: 03/06/18 Principal diagnosis: shock Interval history: resting in bed today Objective - Exam Narrative Exam: General appearance: other (intubated, nonresponsive, not on sedation) Cardiac: Positive: Reg Rate and Rhythm, S1/S2 Lungs: Positive: Decreased Breath Sounds, Oxygen, Ventilated Respirations Neuro: Positive: Other (intubated, nonresponsive, not on sedation) Skin: Negative: Rash, Wound Musculoskeletal: No Fluid Collection Extremities: Absent: edema - Vital Signs Vital signs: Vital Signs - 12hr 03/05/18 03/05/18 03/05/18 21:30 21:46 22:00 Temperature Pulse Rate 92 H 93 H 96 H Respiratory 30 H 30 H 30 H Rate Blood Pressure 173/135 119/56 121/60 O2 Sat by Pulse 80 L 73 L 56 L Oximetry 03/05/18 03/05/18 03/05/18 22:15 22:30 22:45 Temperature Pulse Rate 91 H 95 H 98 H Respiratory 30 H 30 H 30 H Rate Blood Pressure 117/66 147/87 126/19 O2 Sat by Pulse 62 L 71 L 87 Oximetry 03/05/18 03/05/18 03/05/18 23:00 23:15 23:30 Temperature Pulse Rate 99 H 108 H 106 H Respiratory 30 H 30 H 30 H Rate Blood Pressure 124/58 130/64 115/61 O2 Sat by Pulse 83 L 64 L 73 L Oximetry 03/05/18 03/05/18 03/05/18 23:32 23:42 23:45 Temperature 99.7 F H Pulse Rate 106 H 106 H 105 H Respiratory 30 H 30 H 30 H Rate Blood Pressure 115/61 115/61 112/61 O2 Sat by Pulse 75 L 66 L Oximetry 03/06/18 03/06/18 03/06/18 00:00 00:08 00:15 Temperature 99.6 F 98.5 F Pulse Rate 107 H 107 H Respiratory 30 H 30 H Rate Blood Pressure 130/58 128/63 O2 Sat by Pulse 78 L 69 L Oximetry 03/06/18 03/06/18 03/06/18 00:27 00:30 00:35 Temperature 99.5 F Pulse Rate 105 H 104 H Respiratory 30 H Rate Blood Pressure 129/66 129/66 O2 Sat by Pulse 75 L Oximetry 03/06/18 03/06/18 03/06/18 00:45 01:00 01:15 Temperature Pulse Rate 106 H 107 H 107 H Respiratory 30 H 29 H 30 H Rate Blood Pressure 125/64 129/61 129/67 O2 Sat by Pulse 67 L 70 L 73 L Oximetry 03/06/18 03/06/18 03/06/18 01:27 01:30 01:45 Temperature 99.5 F Pulse Rate 107 H 107 H Respiratory 30 H 30 H Rate Blood Pressure 106/59 120/61 O2 Sat by Pulse 73 L 68 L Oximetry 03/06/18 03/06/18 03/06/18 02:00 02:10 02:15 Temperature 98.7 F Pulse Rate 108 H 108 H Respiratory 30 H 31 H Rate Blood Pressure 116/61 117/59 O2 Sat by Pulse 71 L 73 L Oximetry 03/06/18 03/06/18 03/06/18 02:30 02:45 03:00 Temperature Pulse Rate 99 H 110 H 104 H Respiratory 30 H 30 H 30 H Rate Blood Pressure 117/59 91/61 94/48 O2 Sat by Pulse 74 L 86 68 L Oximetry 03/06/18 03/06/18 03/06/18 03:16 03:30 03:45 Temperature Pulse Rate 105 H 108 H 106 H Respiratory 30 H 30 H 30 H Rate Blood Pressure 81/45 85/52 75/48 O2 Sat by Pulse 67 L 62 L 68 L Oximetry 03/06/18 03/06/18 03/06/18 04:00 04:15 04:30 Temperature 99.2 F Pulse Rate 104 H 108 H 108 H Respiratory 30 H 30 H 30 H Rate Blood Pressure 75/48 109/48 103/55 O2 Sat by Pulse 69 L 69 L 88 Oximetry 03/06/18 03/06/18 03/06/18 04:45 05:00 05:15 Temperature Pulse Rate 109 H 115 H 111 H Respiratory 30 H 30 H 30 H Rate Blood Pressure 118/55 114/52 118/59 O2 Sat by Pulse 75 L 93 88 Oximetry 03/06/18 03/06/18 03/06/18 05:16 05:30 05:46 Temperature 100 F H Pulse Rate 117 H 119 H Respiratory 30 H 30 H Rate Blood Pressure 106/66 O2 Sat by Pulse 96 96 Oximetry 03/06/18 03/06/18 03/06/18 06:00 06:15 06:30 Temperature Pulse Rate 106 H 104 H 114 H Respiratory 30 H 30 H 30 H Rate Blood Pressure 113/59 106/54 O2 Sat by Pulse 97 100 61 L Oximetry 03/06/18 03/06/18 06:45 07:34 Temperature Pulse Rate 117 H 110 H Respiratory 30 H Rate Blood Pressure 110/52 89/56 O2 Sat by Pulse 85 92 Oximetry - Lab 03/06/18 09:00 03/05/18 08:57 Most recent lab results Calcium 4.0 mg/dL (8.4-10.2) L* D 03/05/18 08:57 Magnesium 1.50 mg/dL (1.7-2.3) L 03/05/18 08:57
[2018-03-06 09:55] LABS: Albumin 0.8 g/dL (3.9-5); Bilirubin,Direct 1.6 mg/dL (0-0.2)
[2018-03-06 09:57] LABS: Calcium 4.2 mg/dL (8.4-10.2)
[2018-03-06] MEDS ORDERED: KIONEX PO ONE (10:35)
[2018-03-06] MEDS ORDERED: ALBURX 25% (ALBUMIN) IV PRN (10:36)
[2018-03-06] MEDS ORDERED: PROCRIT IV PRN (10:36)
[2018-03-06] MEDS ORDERED: NACL 0.9% 100 ML IV PRN (10:36)
--- NOTE | 2018-03-06 10:44 | Progress Note ---
Assessment and Plan Assessment: 1) [id number] cardiac arrest 2) Shock post cardiac arrest ? cardiac ?less likely septic: source ? lungs. CRP= 12.8 3) Left pneumonia ? aspiration 4) Acute respiratory failure 5) Acute encephalopathy: ?anoxic brain injury 6) Severe lactic acidosis 7) Severe anemia, thrombocytopenia 8) JIM - worsening 9) Left leg skin bulla from IO line? Plan: -f/u blood cx, sputum cultures, procalcitonin -continue zosyn and vanco renally dosed - D3 -CT chest, abd, pelvis when stable -neuro consult -no family members available -wound care consult -volume resuscitation per Dr Sainz I am rounding on 03/08 Very poor prognosis Thank you for your consultation, will follow up with you. Ana Dumont MD Infectious Diseases Specialist [facility] ([facility]) M [phone] O [phone] Subjective Date of service: 03/06/18 Principal diagnosis: shock Interval history: Remains critically ill comatose, no gag reflex or corneal reflex, tmax 100, still on 4 pressors - alpesh, levo, vaso and epi Microbiology: Blood cultures: 03/05 ngtd Urine cultures: Respiratory cultures: 03/04 ngtd Wound cultures: Current Antimicrobials: Zosyn Vancomycin Objective - Exam Narrative Exam: General appearance: comatose intubated Eyes: anicteric sclerae, moist conjunctivae; no lid-lag; minimal pupils reaction , no corneal reflex HENT: Atraumatic; oropharynx +ETT, OGT, NO gag reflex Neck: Trachea midline; supple, no thyromegaly or lymphadenopathy Lungs: +analilia rhonchi CV: tachy Abdomen: Soft, non-tender; no masses or hepatosplenomegaly Extremities: No peripheral edema or extremity lymphadenopathy Skin: left leg extensive bulla Psych: comatose Neuro: comatose Lines: - Constitutional Vitals: Vital Signs Temp Pulse Resp BP Pulse Ox 100 F H 119 H 30 H 125/64 80 L 03/06/18 05:16 03/06/18 10:15 03/06/18 10:15 03/06/18 10:15 03/06/18 08:45 Temperature -Last 24 Hours Temperature 100 F Temperature 99.2 F Temperature 98.7 F Temperature 99.5 F Temperature 99.5 F Temperature 98.5 F Temperature 99.6 F Temperature 99.7 F Temperature 96.0 F Temperature 92.3 F - Labs CBC & Chem 7: 03/06/18 09:00 03/06/18 09:00 Labs: Abnormal lab results 03/05/18 03/05/18 03/05/18 Range/Units 08:57 10:34 10:36 WBC (4.5-11.0) K/mm3 RDW (13.2-15.2) % Plt Count (140-440) K/mm3 Lymphocytes % (Manual) 8.0 L (13.4-35.0) % Seg Neutrophils # Man 9.6 H (1.8-7.7) K/mm3 POC ABG pH (7.35-7.45) POC ABG pCO2 (35-45) POC ABG pO2 (80-105) Sodium (137-145) mmol/L Potassium (3.6-5.0) mmol/L Carbon Dioxide (22-30) mmol/L BUN (7-17) mg/dL Creatinine (0.7-1.2) mg/dL Glucose (65-100) mg/dL POC Glucose 236 H (70-105) Lactic Acid (0.7-2.0) mmol/L Calcium (8.4-10.2) mg/dL Total Bilirubin (0.1-1.2) mg/dL Direct Bilirubin (0-0.2) mg/dL AST (5-40) units/L ALT (7-56) units/L Total Protein (6.3-8.2) g/dL Albumin (3.9-5) g/dL Crossmatch See Detail 03/05/18 03/05/18 03/05/18 Range/Units 14:45 16:37 21:04 WBC (4.5-11.0) K/mm3 RDW (13.2-15.2) % Plt Count (140-440) K/mm3 Lymphocytes % (Manual) (13.4-35.0) % Seg Neutrophils # Man (1.8-7.7) K/mm3 POC ABG pH 7.058 L 7.055 L (7.35-7.45) POC ABG pCO2 27.7 L 29.3 L (35-45) POC ABG pO2 247 H 123 H (80-105) Sodium (137-145) mmol/L Potassium (3.6-5.0) mmol/L Carbon Dioxide (22-30) mmol/L BUN (7-17) mg/dL Creatinine (0.7-1.2) mg/dL Glucose (65-100) mg/dL POC Glucose (70-105) Lactic Acid 13.00 H* (0.7-2.0) mmol/L Calcium (8.4-10.2) mg/dL Total Bilirubin (0.1-1.2) mg/dL Direct Bilirubin (0-0.2) mg/dL AST (5-40) units/L ALT (7-56) units/L Total Protein (6.3-8.2) g/dL Albumin (3.9-5) g/dL Crossmatch 03/06/18 03/06/18 03/06/18 Range/Units 00:36 04:59 07:34 WBC (4.5-11.0) K/mm3 RDW (13.2-15.2) % Plt Count (140-440) K/mm3 Lymphocytes % (Manual) (13.4-35.0) % Seg Neutrophils # Man (1.8-7.7) K/mm3 POC ABG pH 7.081 L 7.197 L (7.35-7.45) POC ABG pCO2 28.2 L 29.8 L (35-45) POC ABG pO2 74 L (80-105) Sodium (137-145) mmol/L Potassium (3.6-5.0) mmol/L Carbon Dioxide (22-30) mmol/L BUN (7-17) mg/dL Creatinine (0.7-1.2) mg/dL Glucose (65-100) mg/dL POC Glucose 112 H (70-105) Lactic Acid (0.7-2.0) mmol/L Calcium (8.4-10.2) mg/dL Total Bilirubin (0.1-1.2) mg/dL Direct Bilirubin (0-0.2) mg/dL AST (5-40) units/L ALT (7-56) units/L Total Protein (6.3-8.2) g/dL Albumin (3.9-5) g/dL Crossmatch 07/25/18 07/25/18 Range/Units 09:00 09:00 WBC 24.2 H (4.5-11.0) K/mm3 RDW 19.6 H (13.2-15.2) % Plt Count 73 L (140-440) K/mm3 Lymphocytes % (Manual) (13.4-35.0) % Seg Neutrophils # Man (1.8-7.7) K/mm3 POC ABG pH (7.35-7.45) POC ABG pCO2 (35-45) POC ABG pO2 (80-105) Sodium 148 H (137-145) mmol/L Potassium 7.1 H* D (3.6-5.0) mmol/L Carbon Dioxide 13 L (22-30) mmol/L BUN 33 H (7-17) mg/dL Creatinine 3.2 H D (0.7-1.2) mg/dL Glucose 213 H (65-100) mg/dL POC Glucose (70-105) Lactic Acid (0.7-2.0) mmol/L Calcium 4.2 L* (8.4-10.2) mg/dL Total Bilirubin 1.70 H (0.1-1.2) mg/dL Direct Bilirubin 1.6 H (0-0.2) mg/dL AST 1427 H (5-40) units/L ALT 1087 H (7-56) units/L Total Protein 3.0 L (6.3-8.2) g/dL Albumin 0.8 L (3.9-5) g/dL Crossmatch
[2018-03-06] MEDS: PEPCID IV SCH (10:52)
[2018-03-06] MEDS: HEPARIN SUB-Q SCH ×2 (10:52→22:36)
[2018-03-06] MEDS: Vasostrict 20 UNIT in NACL 0.9% 100 ML IV SCH ×2 (11:15→21:58)
[2018-03-06] MEDS ORDERED: NACL 0.9% 500 ML 500 ML ONE (12:12)
--- NOTE | 2018-03-06 12:38 | Progress Note ---
Assessment and Plan Pt with ARF and hyperkalemia. HD to be initiated today per nephrology. Await neurology consultation. Cont supportive measures. Patient is noted to be essentially homeless with no family contact information. Ethics consult pending. The patient has been seen in conjunction with Dr. Light who agrees with the assessment and plan of care. - Patient Problems (1) Cardiopulmonary arrest with successful resuscitation Current Visit: Yes Status: Acute (2) Respiratory failure requiring intubation Current Visit: Yes Status: Acute (3) Altered mental status Current Visit: Yes Status: Acute (4) Pneumonia Current Visit: Yes Status: Acute Qualifiers: Pneumonia type: due to unspecified organism Laterality: left Lung location: unspecified part of lung Qualified Code(s): J18.9 - Pneumonia, unspecified organism (5) Sepsis Current Visit: Yes Status: Acute Qualifiers: Sepsis type: sepsis due to unspecified organism Qualified Code(s): A41.9 - Sepsis, unspecified organism (6) Metabolic acidosis Current Visit: Yes Status: Acute (7) GI bleed Current Visit: Yes Status: Suspected (8) Anemia Current Visit: Yes Status: Acute (9) Elevated troponin Current Visit: Yes Status: Acute (10) Transaminitis Current Visit: Yes Status: Acute (11) Malnutrition Current Visit: Yes Status: Chronic (12) Acute renal failure Current Visit: Yes Status: Acute (13) Hyperkalemia Current Visit: Yes Status: Acute (14) Hypocalcemia Current Visit: Yes Status: Acute Subjective Date of service: 03/06/18 Principal diagnosis: shock Interval history: pt remains intubated, nonresponsive, not on sedation, requiring multiple vasopressors. no family at bedside. in sinus tachycardia in telemetry. Objective Last Vital Signs Temp 100 F H 03/06/18 05:16 Pulse 135 H 03/06/18 11:07 Resp 30 H 03/06/18 10:15 BP 115/61 03/06/18 11:07 Pulse Ox 97 03/06/18 11:07 - Physical Examination General: Other (intubated, nonresponsive, not on sedation) HEENT: Positive: Other (pupils fixed) Cardiac: Positive: S1/S2, Tachycardia Lungs: Positive: Decreased Breath Sounds, Ventilated Respirations Neuro: Positive: Other (intubated, nonresponsive, not on sedation) Skin: Negative: Rash, Wound Musculoskeletal: No Fluid Collection Extremities: Absent: edema - Labs and Meds Cardiac Enzymes 03/06/18 Range/Units 09:00 AST 1427 H (5-40) units/L CBC 03/06/18 Range/Units 09:00 WBC 24.2 H (4.5-11.0) K/mm3 RBC 3.94 (3.65-5.03) M/mm3 Hgb 11.2 D (10.1-14.3) gm/dl Hct 34.8 D (30.3-42.9) % Plt Count 73 L (140-440) K/mm3 Comprehensive Metabolic Panel 03/06/18 Range/Units 09:00 Sodium 148 H (137-145) mmol/L Potassium 7.1 H* D (3.6-5.0) mmol/L Chloride 101.4 (98-107) mmol/L Carbon Dioxide 13 L (22-30) mmol/L BUN 33 H (7-17) mg/dL Creatinine 3.2 H D (0.7-1.2) mg/dL Glucose 213 H (65-100) mg/dL Calcium 4.2 L* (8.4-10.2) mg/dL Direct Bilirubin 1.6 H (0-0.2) mg/dL Indirect Bilirubin 0.1 mg/dL AST 1427 H (5-40) units/L ALT 1087 H (7-56) units/L Alkaline Phosphatase 125 (35-129) units/L Total Protein 3.0 L (6.3-8.2) g/dL Albumin 0.8 L (3.9-5) g/dL - Imaging and Cardiology EKG: report reviewed, image reviewed Echo: report reviewed (TDS, EF 65-70%, mild to mod LVH, hyperdynamic LV, abnormal diastolic function, RA mildly dilated, mod TR, trace LA. ) - Telemetry EKG Rhythm: Sinus Tachycardia - EKG Sinus rhythms and dysrhythmias: sinus rhythm
--- NOTE | 2018-03-06 13:14 | Event Note ---
Date: 03/06/18 Pt found unresponsive in cardiac arrest. No neurological function noted. Is on 4 pressors for support. No family known. Asked to place emergent HD catheter. R CFV line placed under sterile conditions w US guidance. Good flow. Noted to have subacute DVT in R CFV. Looked at radial arteries for art line. Could not identify any patent wrist arteries on US. No attempt made to place line.
[2018-03-06] MEDS: D10W 1,000 ML IV SCH (13:51)
--- NOTE | 2018-03-06 14:21 | Progress Note ---
Assessment and Plan Assessment and plan: Patient is a 62 year old female recently discharged from [facility] to a personal senior care. Per physician locums urgent care patient was homeless at the time of admission to [facility] and no other information was available. The patient was found unresponsive and EMS called and patient was noted to have a pulseless arrest was intubated and transported [facility] to the hospital Out of hospital cardiac arrest Hypovoluemic shock Severe Hyperkalemia Acute Respiratory Failure with hypoxia on Mechanical ventilation day 2 Combined Metabolic and Respiratory acidosis Acute metabolic encephalopathy Anoxic brain injury suspected Shock live syndrome JIM secondary to vasomotor nephropathy Pancytopenia ?Sepsis Severe Protein calorie malnutrition Severe Anemia Pancytopenia Type [address] Transaminitis PLAN Continue supportive care. Replace electrolytes Access for dialysis placed AND TO BE Dialysed today Await Neurology eval Continue mechanical ventilation Information Systems Security Officer support noted, if no improvement in mental status will obtain Neurology mary Continue pressors Try to get records from [facility] and see if there is family Poor prognosis DVT/GI prophy Plan discussed with consultants and physician locums urgent care The high probability of a clinically significant, sudden or life threatening deterioration of the [pulmonary, cardiology,neurology] system(s) required my full and direct attention, intervention and personal management. The aggregate critical care time was [35] minutes. This time is in addition to time spent performing reported procedures but includes the following: [x] Data Review and interpretation [x] Patient assessment and monitoring of vital signs [x] Documentation [x] Medication orders and management History Interval history: Patient seen and examined, remains very unreponsive with none reactive pupil. Hospitalist Physical - Physical exam Narrative exam: General appearance: other (intubated, nonresponsive, not on sedation) Cardiac: Positive: Reg Rate and Rhythm, S1/S2 Lungs: Positive: Decreased Breath Sounds, Oxygen, Ventilated Respirations Abdomen:soft, hypoactive bs Musculoskeletal: No Fluid Collection Extremities: Absent: edema Neuro: Positive: Other (intubated, nonresponsive, not on sedation) Skin: Negative: Rash, Wound - Constitutional Vitals: Temp Pulse Resp BP Pulse Ox 100 F H 108 H 30 H 100/67 100 03/06/18 05:16 03/06/18 13:26 03/06/18 10:15 03/06/18 13:26 03/06/18 13:26 General appearance: Present: other (intubated, nonresponsive, not on sedation) Results - Labs CBC & Chem 7: 03/06/18 09:00 03/06/18 09:00 Labs: Laboratory Last Values WBC 24.2 K/mm3 (4.5-11.0) H 03/06/18 09:00 RBC 3.94 M/mm3 (3.65-5.03) 03/06/18 09:00 Hgb 11.2 gm/dl (10.1-14.3) D 03/06/18 09:00 Hct 34.8 % (30.3-42.9) D 03/06/18 09:00 MCV 88 fl (79-97) 03/06/18 09:00 MCH 28 pg (28-32) 03/06/18 09:00 MCHC 32 % (30-34) 03/06/18 09:00 RDW 19.6 % (13.2-15.2) H 03/06/18 09:00 Plt Count 73 K/mm3 (140-440) L 03/06/18 09:00 Lymph % (Auto) Sales Correspondence Clerk 03/05/18 08:57 Coleman % (Auto) Sales Correspondence Clerk 03/05/18 08:57 Eos % (Auto) Sales Correspondence Clerk 03/05/18 08:57 Baso % (Auto) Sales Correspondence Clerk 03/05/18 08:57 Lymph # Sales Correspondence Clerk 03/05/18 08:57 Coleman # Sales Correspondence Clerk 03/05/18 08:57 Eos # Sales Correspondence Clerk 03/05/18 08:57 Baso # Sales Correspondence Clerk 03/05/18 08:57 Add Manual Diff Complete 03/05/18 08:57 Total Counted 100 03/05/18 08:57 Seg Neutrophils % Sales Correspondence Clerk 03/05/18 08:57 Seg Neuts % (Manual) 63.0 % (40.0-70.0) 03/05/18 08:57 Band Neutrophils % 19.0 % 03/05/18 08:57 Lymphocytes % (Manual) 8.0 % (13.4-35.0) L 03/05/18 08:57 Reactive Lymphs % (Man) 0 % 03/05/18 08:57 Monocytes % (Manual) 4.0 % (0.0-7.3) 03/05/18 08:57 Eosinophils % (Manual) 0 % (0.0-4.3) 03/05/18 08:57 Basophils % (Manual) 0 % (0.0-1.8) 03/05/18 08:57 Metamyelocytes % 6.0 % 03/05/18 08:57 Myelocytes % 0 % 03/05/18 08:57 Promyelocytes % 0 % 03/05/18 08:57 Blast Cells % 0 % 03/05/18 08:57 Nucleated RBC % Not Reportable 03/05/18 08:57 Seg Neutrophils # Sales Correspondence Clerk 03/05/18 08:57 Seg Neutrophils # Man 9.6 K/mm3 (1.8-7.7) H 03/05/18 08:57 Band Neutrophils # 2.9 K/mm3 03/05/18 08:57 Lymphocytes # (Manual) 1.2 K/mm3 (1.2-5.4) 03/05/18 08:57 Abs React Lymphs (Man) 0.0 K/mm3 03/05/18 08:57 Monocytes # (Manual) 0.6 K/mm3 (0.0-0.8) 03/05/18 08:57 Eosinophils # (Manual) 0.0 K/mm3 (0.0-0.4) 03/05/18 08:57 Basophils # (Manual) 0.0 K/mm3 (0.0-0.1) 03/05/18 08:57 Metamyelocytes # 0.9 K/mm3 03/05/18 08:57 Myelocytes # 0.0 K/mm3 03/05/18 08:57 Promyelocytes # 0.0 K/mm3 03/05/18 08:57 Blast Cells # 0.0 K/mm3 03/05/18 08:57 WBC Morphology Not Reportable 03/05/18 08:57 Hypersegmented Neuts Not Reportable 03/05/18 08:57 Hyposegmented Neuts Not Reportable 03/05/18 08:57 Hypogranular Neuts Not Reportable 03/05/18 08:57 Smudge Cells Not Reportable 03/05/18 08:57 Toxic Granulation Not Reportable 03/05/18 08:57 Toxic Vacuolation Not Reportable 03/05/18 08:57 Dohle Bodies Not Reportable 03/05/18 08:57 Pelger-Huet Anomaly Not Reportable 03/05/18 08:57 Juan Rods Not Reportable 03/05/18 08:57 Platelet Estimate Consistent w auto 03/05/18 08:57 Clumped Platelets Not Reportable 03/05/18 08:57 Plt Clumps, EDTA Not Reportable 03/05/18 08:57 Large Platelets 1+ 03/05/18 08:57 Giant Platelets Not Reportable 03/05/18 08:57 Platelet Satelliting Not Reportable 03/05/18 08:57 Plt Morphology Comment Not Reportable 03/05/18 08:57 RBC Morphology Not Reportable 03/05/18 08:57 Dimorphic RBCs Not Reportable 03/05/18 08:57 Polychromasia Not Reportable 03/05/18 08:57 Hypochromasia 1+ 03/05/18 08:57 Poikilocytosis Not Reportable 03/05/18 08:57 Anisocytosis 1+ 03/05/18 08:57 Microcytosis Not Reportable 03/05/18 08:57 Macrocytosis Not Reportable 03/05/18 08:57 Spherocytes Not Reportable 03/05/18 08:57 Pappenheimer Bodies Not Reportable 03/05/18 08:57 Sickle Cells Not Reportable 03/05/18 08:57 Target Cells Not Reportable 03/05/18 08:57 Tear Drop Cells Not Reportable 03/05/18 08:57 Ovalocytes Not Reportable 03/05/18 08:57 Helmet Cells Not Reportable 03/05/18 08:57 [place] Bodies Not Reportable 03/05/18 08:57 [place] Rings Not Reportable 03/05/18 08:57 Aris Cells Not Reportable 03/05/18 08:57 Bite Cells Not Reportable 03/05/18 08:57 Crenated Cell 1+ 03/05/18 08:57 Elliptocytes Not Reportable 03/05/18 08:57 Acanthocytes (Spur) Not Reportable 03/05/18 08:57 Rouleaux Not Reportable 03/05/18 08:57 Hemoglobin C Crystals Not Reportable 03/05/18 08:57 Schistocytes Rare 03/05/18 08:57 Malaria parasites Not Reportable 03/05/18 08:57 Bo Bodies Not Reportable 03/05/18 08:57 Hem Pathologist Commnt No 03/05/18 08:57 POC ABG pH 7.197 (7.35-7.45) L 03/06/18 07:34 POC ABG pCO2 29.8 (35-45) L 03/06/18 07:34 POC ABG pO2 74 (80-105) L 03/06/18 07:34 POC ABG HCO3 11.6 03/06/18 07:34 POC ABG Total CO2 12 03/06/18 07:34 POC ABG O2 Sat 91 03/06/18 07:34 POC ABG Base Excess -17 03/06/18 07:34 FiO2 60 % 03/06/18 07:34 Sodium 148 mmol/L (137-145) H 03/06/18 09:00 Potassium 7.1 mmol/L (3.6-5.0) H* D 03/06/18 09:00 Chloride 101.4 mmol/L (98-107) 03/06/18 09:00 Carbon Dioxide 13 mmol/L (22-30) L 03/06/18 09:00 Anion Gap 41 mmol/L 03/06/18 09:00 BUN 33 mg/dL (7-17) H 03/06/18 09:00 Creatinine 3.2 mg/dL (0.7-1.2) H D 03/06/18 09:00 Estimated GFR 18 ml/min 03/06/18 09:00 BUN/Creatinine Ratio 10 % 03/06/18 09:00 Glucose 213 mg/dL (65-100) H 03/06/18 09:00 POC Glucose 185 (70-105) H 03/06/18 13:55 Lactic Acid 13.00 mmol/L (0.7-2.0) H* 03/05/18 14:45 Calcium 4.2 mg/dL (8.4-10.2) L* 03/06/18 09:00 Magnesium 1.50 mg/dL (1.7-2.3) L 03/05/18 08:57 Total Bilirubin 1.70 mg/dL (0.1-1.2) H 03/06/18 09:00 Direct Bilirubin 1.6 mg/dL (0-0.2) H 03/06/18 09:00 Indirect Bilirubin 0.1 mg/dL 03/06/18 09:00 AST 1427 units/L (5-40) H 03/06/18 09:00 ALT 1087 units/L (7-56) H 03/06/18 09:00 Alkaline Phosphatase 125 units/L (35-129) 03/06/18 09:00 Total Creatine Kinase 497 units/L (30-135) H 03/04/18 Unknown CK-MB (CK-2) 4.1 ng/mL (0.0-4.0) H 03/04/18 Unknown CK-MB (CK-2) Rel Index 0.8 (0-4) 03/04/18 Unknown Troponin T 0.053 ng/mL (0.00-0.029) H 03/04/18 Unknown C-Reactive Protein 12.80 mg/dL (0.00-1.30) H 03/04/18 23:06 NT-Pro-B Natriuret Pep 2107 pg/mL (0-900) H 03/03/18 19:31 Total Protein 3.0 g/dL (6.3-8.2) L 03/06/18 09:00 Albumin 0.8 g/dL (3.9-5) L 03/06/18 09:00 Albumin/Globulin Ratio 0.4 % 03/06/18 09:00 Triglycerides 102 mg/dL (2-149) 03/03/18 19:31 Cholesterol 106 mg/dL (50-199) 03/03/18 19:31 LDL Cholesterol Direct 45 mg/dL (50-130) L 03/03/18 19:31 HDL Cholesterol 19 mg/dL (40-59) L 03/03/18 19:31 Cholesterol/HDL Ratio 5.57 % 03/03/18 19:31 Urine Opiates Screen Presumptive positive 03/04/18 02:30 Urine Methadone Screen Presumptive negative 03/04/18 02:30 Ur Barbiturates Screen Presumptive negative 03/04/18 02:30 Ur Phencyclidine Scrn Presumptive negative 03/04/18 02:30 Ur Amphetamines Screen Presumptive negative 03/04/18 02:30 U Benzodiazepines Scrn Presumptive negative 03/04/18 02:30 Urine Cocaine Screen Presumptive negative 03/04/18 02:30 U Marijuana (THC) Screen Presumptive negative 03/04/18 02:30 Drugs of Abuse Note Disclamer 03/04/18 02:30 Blood Type O POSITIVE 03/05/18 10:34 Antibody Screen Negative 03/05/18 10:34 Crossmatch See Detail 03/05/18 10:34
[2018-03-06 15:13] LABS: Hepatitis A Antibody IgM Non-Reactive (NonReactive); Hepatitis B Core IgM Non-Reactive (NonReactive); Hepatitis B Surface Antigen Reactive (Negative); Hepatitis C Virus Antibody Non-Reactive (NonReactive)
--- NOTE | 2018-03-06 15:28 | History and Physical Report ---
History of Present Illness Date of examination: 03/06/18 Date of admission: 03/03/18 22:41 History of present illness: NEUROLOGY CONSULTATION NOTE: Hx reviewed in chart. She was found down at home, EMS arrived to find her unresponsive with no pulse and no respirations, CP resusitation was implemented with buddhism of HR...to our ED. She was in cardiogenic and hypovolemic shock, three pressors and volume replacement were administered. The patient has been comatose since arrival at the ED. ROS not possible SH/FH not possible MEDS/ALLERGIES - SEE CHART NEURO EXAM (NOT ON ANY SEDATIVES AT ANY TIME) Patient lies motionless on vent, not driving the vent, follows no commands NO EOM on [place] Maneuver, Pupils fixed at 3 mm diam, unresponsive to bright light stim NO extremity motion on nox stim to each extremity. DTRs uniformly absent, toes unresponsive to plantar stim DXIMP: 1. S/P cardiopulmary arrest, with current coma secondary to anoxic/ hypoperfusion [employer] insult, with no evidence of brain stem function on exam RECC: 1. Pursue current mgt. I will see her again tomorrow. 2. Discussed with ICU Team Juan Mckay MD Past History Past Medical History: No medical history Past Surgical History: Other (unalbe to obtain) Social history: other (unable to obtain, lives in personal senior living) Family history: other (unable to obtain) Medications and Allergies Allergies Allergy/AdvReac Type Severity Reaction Status Date / Time No Known Allergies Allergy Unverified 03/03/18 18:07 Home Medications Medication Instructions Recorded Confirmed Last Taken Type Methimazole [Tapazole] 5 mg PO DAILY 03/03/18 03/03/18 Unknown History Metoprolol Xl [Metoprolol 100 mg PO DAILY 03/03/18 03/03/18 Unknown History SUCCINATE ER TAB] Morphine Sulfate [Morphine Sulfate 7.5 mg PO Q4-6H PRN 03/03/18 03/03/18 Unknown History IR] Nitrofurantoin Macrocrystal 100 mg PO BID 03/03/18 03/03/18 Unknown History [Nitrofurantoin] Omeprazole 20 mg PO DAILY 03/03/18 03/03/18 Unknown History Active Meds: Active Medications Acetaminophen (Tylenol) 650 mg AR Q4H PRN PRN Reason: Fever >101 Albumin Human ([place]x 25% (Albumin)) 25 gm IV DELFINO PRN PRN Reason: Hypotension Epoetin Armando (Procrit) 10,000 unit IV DELFINO PRN PRN Reason: hemodialysis Famotidine (Pepcid) 20 mg IV DAILY BRANDON Last Admin: 03/06/18 10:52 Dose: 20 mg Heparin Sodium (Porcine) (Heparin) 5,000 unit SUB-Q Q12HR BRANDON Last Admin: 03/06/18 10:52 Dose: 5,000 unit Hydrocortisone Sodium Succinate (Solu-Cortef) 100 mg IV Q8HR BRANDON Last Admin: 03/06/18 13:48 Dose: 100 mg Epinephrine 8 mg/ Sodium (Chloride) 250 mls @ 0.93 mls/hr IV TITR BRANDON; Protocol Last Titration: 03/06/18 11:20 Dose: 3 mcg/min, 5.62 mls/hr Phenylephrine HCl 100 mg/ (Sodium Chloride) 100 mls @ 3 mls/hr IV TITR BRANDON; Protocol Last Admin: 03/06/18 13:38 Dose: 250 mcg/min, 15 mls/hr Vasopressin 20 unit/ Sodium (Chloride) 101 mls @ 9.09 mls/hr IV TITR BRANDON; Protocol Last Admin: 03/06/18 11:15 Dose: 0.03 units/min, 9.09 mls/hr Piperacillin Sod/Tazobactam Sod (Zosyn/Ns 2.25 Gm/50ml) 2.25 gm in 50 mls @ 100 mls/hr IV Q6HR BRANDON Last Admin: 03/06/18 05:32 Dose: 100 mls/hr Sodium Bicarbonate 150 meq/ (Dextrose) 1,150 mls @ 125 mls/hr IV DIRECT BRANDON Last Admin: 03/06/18 11:19 Dose: 125 mls/hr Dextrose (D10w) 1,000 mls @ 42 mls/hr IV DIRECT BRANDON Last Admin: 03/06/18 13:51 Dose: 42 mls/hr Norepinephrine 8 mg/ Sodium (Chloride) 250 mls @ 3.75 mls/hr IV TITR BRANDON; Protocol Last Admin: 03/06/18 10:50 Dose: 30 mcg/min, 56.25 mls/hr Sodium Chloride (Nacl 0.9%) 100 mls @ 999 mls/hr IV DELFINO PRN PRN Reason: Hypotension Vancomycin HCl (Vancomycin Pharmacy To Dose) 1 each IV PKCONSULT BRANDON Physical Examination - Vital Signs Vital Signs: Vital Signs Temp Pulse BP Pulse Ox 97.3 F L 91 H 41/23 100 03/03/18 17:20 03/03/18 17:20 03/03/18 17:20 03/03/18 17:20 Results - Laboratory Findings CBC and BMP: 03/06/18 09:00 03/06/18 09:00 Abnormal Lab Findings: Abnormal Labs 03/03/18 03/03/18 03/03/18 17:41 19:31 19:31 WBC 14.6 H RBC 3.28 L Hgb 9.3 L Hct 28.7 L MCH RDW 20.9 H Plt Count [place] # Seg Neuts % (Manual) 79.0 H Lymphocytes % (Manual) Seg Neutrophils # Seg Neutrophils # Man 11.5 H Lymphocytes # (Manual) POC ABG pH 6.867 L POC ABG pCO2 64.2 H POC ABG pO2 272 H Sodium Potassium Chloride 97.4 L Carbon Dioxide 16 L BUN Creatinine Glucose 140 H POC Glucose Lactic Acid Calcium 7.8 L Magnesium Total Bilirubin Direct Bilirubin AST 2089 H ALT 423 H Alkaline Phosphatase 160 H Total Creatine Kinase CK-MB (CK-2) Troponin T 0.063 H C-Reactive Protein NT-Pro-B Natriuret Pep 2107 H Total Protein 5.4 L Albumin 1.7 L LDL Cholesterol Direct 45 L HDL Cholesterol 19 L Crossmatch 03/03/18 03/03/18 03/03/18 19:31 20:10 20:56 WBC RBC Hgb Hct MCH RDW Plt Count [place] # Seg Neuts % (Manual) Lymphocytes % (Manual) Seg Neutrophils # Seg Neutrophils # Man Lymphocytes # (Manual) POC ABG pH 7.131 L POC ABG pCO2 49.2 H POC ABG pO2 Sodium Potassium Chloride Carbon Dioxide BUN Creatinine Glucose POC Glucose Lactic Acid 13.20 H* 12.90 H* Calcium Magnesium Total Bilirubin Direct Bilirubin AST ALT Alkaline Phosphatase Total Creatine Kinase CK-MB (CK-2) Troponin T C-Reactive Protein NT-Pro-B Natriuret Pep Total Protein Albumin LDL Cholesterol Direct HDL Cholesterol Crossmatch 03/03/18 03/04/18 03/04/18 21:41 04:34 08:39 WBC RBC Hgb Hct MCH RDW Plt Count [place] # Seg Neuts % (Manual) Lymphocytes % (Manual) Seg Neutrophils # Seg Neutrophils # Man Lymphocytes # (Manual) POC ABG pH 7.151 L POC ABG pCO2 POC ABG pO2 230 H Sodium Potassium Chloride Carbon Dioxide BUN Creatinine Glucose POC Glucose 176 H Lactic Acid 13.10 H* Calcium Magnesium Total Bilirubin Direct Bilirubin AST ALT Alkaline Phosphatase Total Creatine Kinase CK-MB (CK-2) Troponin T C-Reactive Protein NT-Pro-B Natriuret Pep Total Protein Albumin LDL Cholesterol Direct HDL Cholesterol Crossmatch 03/04/18 03/04/18 03/04/18 10:52 14:30 14:30 WBC RBC Hgb Hct MCH RDW Plt Count [place] # Seg Neuts % (Manual) Lymphocytes % (Manual) Seg Neutrophils # Seg Neutrophils # Man Lymphocytes # (Manual) POC ABG pH 7.147 L POC ABG pCO2 POC ABG pO2 66 L Sodium Potassium 5.1 H Chloride Carbon Dioxide 14 L BUN 23 H Creatinine 2.0 H D Glucose 108 H POC Glucose Lactic Acid 10.50 H* Calcium 6.5 L D Magnesium Total Bilirubin Direct Bilirubin AST 2380 H ALT 470 H Alkaline Phosphatase Total Creatine Kinase 5787 H CK-MB (CK-2) 41.0 H Troponin T 0.177 H* D C-Reactive Protein NT-Pro-B Natriuret Pep Total Protein 4.9 L Albumin 1.8 L LDL Cholesterol Direct HDL Cholesterol Crossmatch 03/04/18 03/04/18 03/04/18 14:30 14:30 14:32 WBC 21.2 H RBC 3.54 L Hgb 9.6 L Hct MCH 27 L RDW 21.0 H Plt Count [place] # 1.4 H Seg Neuts % (Manual) 87.0 H Lymphocytes % (Manual) 4.0 L Seg Neutrophils # 20.0 H Seg Neutrophils # Man 18.4 H Lymphocytes # (Manual) 0.8 L POC ABG pH 7.166 L POC ABG pCO2 POC ABG pO2 77 L Sodium Potassium Chloride Carbon Dioxide BUN Creatinine Glucose POC Glucose Lactic Acid Calcium Magnesium 1.60 L Total Bilirubin Direct Bilirubin AST ALT Alkaline Phosphatase Total Creatine Kinase CK-MB (CK-2) Troponin T C-Reactive Protein NT-Pro-B Natriuret Pep Total Protein Albumin LDL Cholesterol Direct HDL Cholesterol Crossmatch 03/04/18 03/04/18 03/04/18 18:19 23:06 23:06 WBC RBC Hgb Hct MCH RDW Plt Count [place] # Seg Neuts % (Manual) Lymphocytes % (Manual) Seg Neutrophils # Seg Neutrophils # Man Lymphocytes # (Manual) POC ABG pH POC ABG pCO2 POC ABG pO2 Sodium Potassium Chloride Carbon Dioxide BUN Creatinine Glucose POC Glucose Lactic Acid 11.20 H* 10.60 H* Calcium Magnesium Total Bilirubin Direct Bilirubin AST ALT Alkaline Phosphatase Total Creatine Kinase CK-MB (CK-2) Troponin T C-Reactive Protein 12.80 H NT-Pro-B Natriuret Pep Total Protein Albumin LDL Cholesterol Direct HDL Cholesterol Crossmatch 03/04/18 03/04/18 03/05/18 23:06 Unknown 06:05 WBC RBC Hgb Hct MCH RDW Plt Count [place] # Seg Neuts % (Manual) Lymphocytes % (Manual) Seg Neutrophils # Seg Neutrophils # Man Lymphocytes # (Manual) POC ABG pH 7.097 L POC ABG pCO2 31.5 L POC ABG pO2 197 H Sodium Potassium 5.3 H Chloride Carbon Dioxide BUN Creatinine Glucose POC Glucose Lactic Acid Calcium Magnesium Total Bilirubin Direct Bilirubin AST ALT Alkaline Phosphatase Total Creatine Kinase 497 H CK-MB (CK-2) 4.1 H Troponin T 0.053 H C-Reactive Protein NT-Pro-B Natriuret Pep Total Protein Albumin LDL Cholesterol Direct HDL Cholesterol Crossmatch 03/05/18 03/05/18 03/05/18 08:57 08:57 08:57 WBC 15.2 H RBC 2.54 L Hgb 6.9 L Hct 21.5 L D MCH 27 L RDW 20.7 H Plt Count 73 L [place] # Seg Neuts % (Manual) Lymphocytes % (Manual) 8.0 L Seg Neutrophils # Seg Neutrophils # Man 9.6 H Lymphocytes # (Manual) POC ABG pH POC ABG pCO2 POC ABG pO2 Sodium Potassium 5.2 H Chloride Carbon Dioxide 15 L BUN 23 H Creatinine 2.1 H Glucose 6 L* POC Glucose Lactic Acid 12.10 H* Calcium 4.0 L* D Magnesium Total Bilirubin Direct Bilirubin AST 3549 H ALT 536 H Alkaline Phosphatase Total Creatine Kinase CK-MB (CK-2) Troponin T C-Reactive Protein NT-Pro-B Natriuret Pep Total Protein 3.1 L D Albumin 1.0 L LDL Cholesterol Direct HDL Cholesterol Crossmatch 03/05/18 03/05/18 03/05/18 08:57 10:34 10:36 WBC RBC Hgb Hct MCH RDW Plt Count [place] # Seg Neuts % (Manual) Lymphocytes % (Manual) Seg Neutrophils # Seg Neutrophils # Man Lymphocytes # (Manual) POC ABG pH POC ABG pCO2 POC ABG pO2 Sodium Potassium Chloride Carbon Dioxide BUN Creatinine Glucose POC Glucose 236 H Lactic Acid Calcium Magnesium 1.50 L Total Bilirubin Direct Bilirubin AST ALT Alkaline Phosphatase Total Creatine Kinase CK-MB (CK-2) Troponin T C-Reactive Protein NT-Pro-B Natriuret Pep Total Protein Albumin LDL Cholesterol Direct HDL Cholesterol Crossmatch See Detail 03/05/18 03/05/18 03/05/18 14:45 16:37 21:04 WBC RBC Hgb Hct MCH RDW Plt Count [place] # Seg Neuts % (Manual) Lymphocytes % (Manual) Seg Neutrophils # Seg Neutrophils # Man Lymphocytes # (Manual) POC ABG pH 7.058 L 7.055 L POC ABG pCO2 27.7 L 29.3 L POC ABG pO2 247 H 123 H Sodium Potassium Chloride Carbon Dioxide BUN Creatinine Glucose POC Glucose Lactic Acid 13.00 H* Calcium Magnesium Total Bilirubin Direct Bilirubin AST ALT Alkaline Phosphatase Total Creatine Kinase CK-MB (CK-2) Troponin T C-Reactive Protein NT-Pro-B Natriuret Pep Total Protein Albumin LDL Cholesterol Direct HDL Cholesterol Crossmatch 03/06/18 03/06/18 03/06/18 00:36 04:59 07:34 WBC RBC Hgb Hct MCH RDW Plt Count [place] # Seg Neuts % (Manual) Lymphocytes % (Manual) Seg Neutrophils # Seg Neutrophils # Man Lymphocytes # (Manual) POC ABG pH 7.081 L 7.197 L POC ABG pCO2 28.2 L 29.8 L POC ABG pO2 74 L Sodium Potassium Chloride Carbon Dioxide BUN Creatinine Glucose POC Glucose 112 H Lactic Acid Calcium Magnesium Total Bilirubin Direct Bilirubin AST ALT Alkaline Phosphatase Total Creatine Kinase CK-MB (CK-2) Troponin T C-Reactive Protein NT-Pro-B Natriuret Pep Total Protein Albumin LDL Cholesterol Direct HDL Cholesterol Crossmatch 03/06/18 03/06/18 03/06/18 09:00 09:00 13:55 WBC 24.2 H RBC Hgb Hct MCH RDW 19.6 H Plt Count 73 L [place] # Seg Neuts % (Manual) Lymphocytes % (Manual) Seg Neutrophils # Seg Neutrophils # Man Lymphocytes # (Manual) POC ABG pH POC ABG pCO2 POC ABG pO2 Sodium 148 H Potassium 7.1 H* D Chloride Carbon Dioxide 13 L BUN 33 H Creatinine 3.2 H D Glucose 213 H POC Glucose 185 H Lactic Acid Calcium 4.2 L* Magnesium Total Bilirubin 1.70 H Direct Bilirubin 1.6 H AST 1427 H ALT 1087 H Alkaline Phosphatase Total Creatine Kinase CK-MB (CK-2) Troponin T C-Reactive Protein NT-Pro-B Natriuret Pep Total Protein 3.0 L Albumin 0.8 L LDL Cholesterol Direct HDL Cholesterol Crossmatch
[2018-03-07] MEDS: ZOSYN/NS 2.25 GM/50ML 2.25 GM/50 ML BAG IV SCH ×4 (00:40→22:31)
[2018-03-07] MEDS: NEO-SYNEPHRINE 100 MG in NACL 0.9% 90 ML IV SCH ×3 (01:49→12:13)
[2018-03-07] MEDS: LEVOPHED 8 MG in NACL 0.9% 250ML 242 ML IV SCH ×3 (04:31→17:25)
[2018-03-07 05:21] LABS: Hematocrit 31.2 % (30.3-42.9); Hemoglobin 10.2 gm/dl (10.1-14.3); Mean Corpuscular HGB Conc 33 % (30-34); Mean Corpuscular Hemoglobin 28 pg (28-32); Mean Corpuscular Volume 86 fl (79-97); Red Blood Count 3.62 M/mm3 (3.65-5.03)
[2018-03-07 05:29] LABS: Platelet Count 31 K/mm3 (140-440); Red Cell Distribution Width 20.1 % (13.2-15.2)
[2018-03-07 06:11] LABS: Calcium 3.9 mg/dL (8.4-10.2)
[2018-03-07] MEDS: SODIUM BICARBONATE 150 MEQ in D5W 1,000 ML IV SCH ×2 (06:32→15:57)
[2018-03-07] MEDS ORDERED: LANOXIN IV ONE (07:14)
[2018-03-07] MEDS: LANOXIN IV SCH ×3 (07:21→17:32)
--- NOTE | 2018-03-07 07:41 | Event Note ---
Date: 03/07/18 Patient was noted to be having rapid heartbeat which appears as supraventricular tachycardia on the monitor, patient is intubated mechanically ventilated and cannot communicate to say whether she is having any chest pain or shortness of breath. Patient is on 3 pressors; IV vasopressin, IV Levophed and IV epinephrine with blood pressure not being able to detected. EKG shows supraventricular tachycardia And patient was noted to be going from going from supraventricular tachycardia to sinus tachycardia. Patient was given IV adenosine with minimal response to treatment. Plan; patient should receive IV normal saline 500 mL bolus and should be on IV digoxin 0.25 mg every 6 hours 4 doses and patient mornitored to see response to these treatments
--- NOTE | 2018-03-07 07:47 | Progress Note ---
Subjective Date of service: 03/07/18 Principal diagnosis: shock Interval history: NEUROLOGY PROGRESS NOTE Still on pressors. NEURO EXAM NOT ON ANY SEDATIVES (now day 2 post arrest, still on pressors): Lies comatose. No spont motion or motion to deep nox stim to any extremity Eyes fixed sl dysconjugate, No EOM on [place] Maneuver, no corneal reflexes Pupils both approx 5mm diam, sl irregular with no responsed to bright light stim. DXIMP: 1. S/P CP arrest, with persistent coma, and no signs of brain stem function as above RECC: 1. Probability of neuro recovery nil 2. Move to [facility]. Juan Mckay MD Objective - Vital Sign Vital Signs - 12hr 03/06/18 03/06/18 03/06/18 19:46 20:00 20:15 Temperature 98.7 F Pulse Rate 110 H 112 H 111 H Respiratory 30 H 30 H Rate Blood Pressure 114/66 79/42 120/59 O2 Sat by Pulse 52 L 38 L Oximetry 03/06/18 03/06/18 03/06/18 20:16 20:30 20:46 Temperature Pulse Rate 111 H 110 H 106 H Respiratory 30 H 30 H 30 H Rate Blood Pressure 120/59 133/77 112/82 O2 Sat by Pulse 50 L 46 L 56 L Oximetry 03/06/18 03/06/18 03/06/18 21:00 21:15 21:30 Temperature Pulse Rate 108 H 112 H 110 H Respiratory 30 H 30 H 30 H Rate Blood Pressure 118/76 126/75 126/75 O2 Sat by Pulse 50 L 58 L 59 L Oximetry 03/06/18 03/06/18 03/06/18 21:46 22:00 22:15 Temperature Pulse Rate 107 H 106 H 106 H Respiratory 30 H 30 H 30 H Rate Blood Pressure 129/63 129/63 115/70 O2 Sat by Pulse 63 L 73 L 88 Oximetry 03/06/18 03/06/18 03/06/18 22:30 22:46 23:00 Temperature Pulse Rate 106 H 106 H 105 H Respiratory 30 H 30 H 30 H Rate Blood Pressure 129/63 130/63 130/55 O2 Sat by Pulse 89 75 L 77 L Oximetry 03/06/18 03/06/18 03/06/18 23:16 23:30 23:46 Temperature Pulse Rate 107 H 104 H 104 H Respiratory 30 H 30 H 30 H Rate Blood Pressure 123/75 123/75 108/67 O2 Sat by Pulse 84 80 L 67 L Oximetry 03/06/18 03/07/18 03/07/18 23:56 00:00 00:15 Temperature Pulse Rate 103 H 107 H 105 H Respiratory 30 H 30 H Rate Blood Pressure 108/67 108/67 O2 Sat by Pulse 68 L 67 L Oximetry 03/07/18 03/07/18 03/07/18 00:16 00:30 00:46 Temperature Pulse Rate 105 H 106 H 106 H Respiratory 30 H 30 H 30 H Rate Blood Pressure 86/51 101/40 106/22 O2 Sat by Pulse 68 L 81 L 77 L Oximetry 03/07/18 03/07/18 03/07/18 01:00 01:16 01:30 Temperature Pulse Rate 104 H 104 H 103 H Respiratory 30 H 30 H 30 H Rate Blood Pressure 106/22 82/34 107/69 O2 Sat by Pulse 76 L 77 L 78 L Oximetry 03/07/18 03/07/18 03/07/18 01:46 02:00 02:16 Temperature Pulse Rate 105 H 104 H 107 H Respiratory 30 H 30 H 30 H Rate Blood Pressure 140/67 140/67 135/98 O2 Sat by Pulse 77 L 78 L 78 L Oximetry 03/07/18 03/07/18 03/07/18 02:30 02:46 03:00 Temperature Pulse Rate 108 H 105 H 107 H Respiratory 30 H 30 H 30 H Rate Blood Pressure 135/98 147/65 147/65 O2 Sat by Pulse 79 L 79 L 75 L Oximetry 03/07/18 03/07/18 03/07/18 03:15 03:30 03:45 Temperature Pulse Rate 104 H 104 H 105 H Respiratory 30 H 30 H 30 H Rate Blood Pressure 119/68 119/68 132/78 O2 Sat by Pulse 78 L 75 L 76 L Oximetry 03/07/18 03/07/18 03/07/18 03:58 04:00 04:15 Temperature Pulse Rate 105 H 106 H 106 H Respiratory 30 H 30 H Rate Blood Pressure 132/78 132/78 125/74 O2 Sat by Pulse 76 L Oximetry 03/07/18 03/07/18 03/07/18 04:30 04:46 05:00 Temperature Pulse Rate 105 H 105 H 105 H Respiratory 30 H 30 H 30 H Rate Blood Pressure 125/74 125/74 114/69 O2 Sat by Pulse 71 L 65 L 70 L Oximetry 03/07/18 05:16 Temperature Pulse Rate 105 H Respiratory 30 H Rate Blood Pressure 144/112 O2 Sat by Pulse 65 L Oximetry - Laboratory Findings CBC and BMP: 03/07/18 05:00 03/07/18 05:00 Abnormal Lab Findings: Abnormal Labs 03/03/18 03/03/18 03/03/18 17:41 19:31 19:31 WBC 14.6 H RBC 3.28 L Hgb 9.3 L Hct 28.7 L MCH RDW 20.9 H Plt Count [place] # Seg Neuts % (Manual) 79.0 H Lymphocytes % (Manual) Seg Neutrophils # Seg Neutrophils # Man 11.5 H Lymphocytes # (Manual) POC ABG pH 6.867 L POC ABG pCO2 64.2 H POC ABG pO2 272 H Sodium Potassium Chloride 97.4 L Carbon Dioxide 16 L BUN Creatinine Glucose 140 H POC Glucose Lactic Acid Calcium 7.8 L Magnesium Total Bilirubin Direct Bilirubin AST 2089 H ALT 423 H Alkaline Phosphatase 160 H Total Creatine Kinase CK-MB (CK-2) Troponin T 0.063 H C-Reactive Protein NT-Pro-B Natriuret Pep 2107 H Total Protein 5.4 L Albumin 1.7 L LDL Cholesterol Direct 45 L HDL Cholesterol 19 L Crossmatch 03/03/18 03/03/18 03/03/18 19:31 20:10 20:56 WBC RBC Hgb Hct MCH RDW Plt Count [place] # Seg Neuts % (Manual) Lymphocytes % (Manual) Seg Neutrophils # Seg Neutrophils # Man Lymphocytes # (Manual) POC ABG pH 7.131 L POC ABG pCO2 49.2 H POC ABG pO2 Sodium Potassium Chloride Carbon Dioxide BUN Creatinine Glucose POC Glucose Lactic Acid 13.20 H* 12.90 H* Calcium Magnesium Total Bilirubin Direct Bilirubin AST ALT Alkaline Phosphatase Total Creatine Kinase CK-MB (CK-2) Troponin T C-Reactive Protein NT-Pro-B Natriuret Pep Total Protein Albumin LDL Cholesterol Direct HDL Cholesterol Crossmatch 03/03/18 03/04/18 03/04/18 21:41 04:34 08:39 WBC RBC Hgb Hct MCH RDW Plt Count [place] # Seg Neuts % (Manual) Lymphocytes % (Manual) Seg Neutrophils # Seg Neutrophils # Man Lymphocytes # (Manual) POC ABG pH 7.151 L POC ABG pCO2 POC ABG pO2 230 H Sodium Potassium Chloride Carbon Dioxide BUN Creatinine Glucose POC Glucose 176 H Lactic Acid 13.10 H* Calcium Magnesium Total Bilirubin Direct Bilirubin AST ALT Alkaline Phosphatase Total Creatine Kinase CK-MB (CK-2) Troponin T C-Reactive Protein NT-Pro-B Natriuret Pep Total Protein Albumin LDL Cholesterol Direct HDL Cholesterol Crossmatch 03/04/18 03/04/18 03/04/18 10:52 14:30 14:30 WBC RBC Hgb Hct MCH RDW Plt Count [place] # Seg Neuts % (Manual) Lymphocytes % (Manual) Seg Neutrophils # Seg Neutrophils # Man Lymphocytes # (Manual) POC ABG pH 7.147 L POC ABG pCO2 POC ABG pO2 66 L Sodium Potassium 5.1 H Chloride Carbon Dioxide 14 L BUN 23 H Creatinine 2.0 H D Glucose 108 H POC Glucose Lactic Acid 10.50 H* Calcium 6.5 L D Magnesium Total Bilirubin Direct Bilirubin AST 2380 H ALT 470 H Alkaline Phosphatase Total Creatine Kinase 5787 H CK-MB (CK-2) 41.0 H Troponin T 0.177 H* D C-Reactive Protein NT-Pro-B Natriuret Pep Total Protein 4.9 L Albumin 1.8 L LDL Cholesterol Direct HDL Cholesterol Crossmatch 03/04/18 03/04/18 03/04/18 14:30 14:30 14:32 WBC 21.2 H RBC 3.54 L Hgb 9.6 L Hct MCH 27 L RDW 21.0 H Plt Count [place] # 1.4 H Seg Neuts % (Manual) 87.0 H Lymphocytes % (Manual) 4.0 L Seg Neutrophils # 20.0 H Seg Neutrophils # Man 18.4 H Lymphocytes # (Manual) 0.8 L POC ABG pH 7.166 L POC ABG pCO2 POC ABG pO2 77 L Sodium Potassium Chloride Carbon Dioxide BUN Creatinine Glucose POC Glucose Lactic Acid Calcium Magnesium 1.60 L Total Bilirubin Direct Bilirubin AST ALT Alkaline Phosphatase Total Creatine Kinase CK-MB (CK-2) Troponin T C-Reactive Protein NT-Pro-B Natriuret Pep Total Protein Albumin LDL Cholesterol Direct HDL Cholesterol Crossmatch 03/04/18 03/04/18 03/04/18 18:19 23:06 23:06 WBC RBC Hgb Hct MCH RDW Plt Count [place] # Seg Neuts % (Manual) Lymphocytes % (Manual) Seg Neutrophils # Seg Neutrophils # Man Lymphocytes # (Manual) POC ABG pH POC ABG pCO2 POC ABG pO2 Sodium Potassium Chloride Carbon Dioxide BUN Creatinine Glucose POC Glucose Lactic Acid 11.20 H* 10.60 H* Calcium Magnesium Total Bilirubin Direct Bilirubin AST ALT Alkaline Phosphatase Total Creatine Kinase CK-MB (CK-2) Troponin T C-Reactive Protein 12.80 H NT-Pro-B Natriuret Pep Total Protein Albumin LDL Cholesterol Direct HDL Cholesterol Crossmatch 03/04/18 03/04/18 03/05/18 23:06 Unknown 06:05 WBC RBC Hgb Hct MCH RDW Plt Count [place] # Seg Neuts % (Manual) Lymphocytes % (Manual) Seg Neutrophils # Seg Neutrophils # Man Lymphocytes # (Manual) POC ABG pH 7.097 L POC ABG pCO2 31.5 L POC ABG pO2 197 H Sodium Potassium 5.3 H Chloride Carbon Dioxide BUN Creatinine Glucose POC Glucose Lactic Acid Calcium Magnesium Total Bilirubin Direct Bilirubin AST ALT Alkaline Phosphatase Total Creatine Kinase 497 H CK-MB (CK-2) 4.1 H Troponin T 0.053 H C-Reactive Protein NT-Pro-B Natriuret Pep Total Protein Albumin LDL Cholesterol Direct HDL Cholesterol Crossmatch 03/05/18 03/05/18 03/05/18 08:57 08:57 08:57 WBC 15.2 H RBC 2.54 L Hgb 6.9 L Hct 21.5 L D MCH 27 L RDW 20.7 H Plt Count 73 L [place] # Seg Neuts % (Manual) Lymphocytes % (Manual) 8.0 L Seg Neutrophils # Seg Neutrophils # Man 9.6 H Lymphocytes # (Manual) POC ABG pH POC ABG pCO2 POC ABG pO2 Sodium Potassium 5.2 H Chloride Carbon Dioxide 15 L BUN 23 H Creatinine 2.1 H Glucose 6 L* POC Glucose Lactic Acid 12.10 H* Calcium 4.0 L* D Magnesium Total Bilirubin Direct Bilirubin AST 3549 H ALT 536 H Alkaline Phosphatase Total Creatine Kinase CK-MB (CK-2) Troponin T C-Reactive Protein NT-Pro-B Natriuret Pep Total Protein 3.1 L D Albumin 1.0 L LDL Cholesterol Direct HDL Cholesterol Crossmatch 03/05/18 03/05/18 03/05/18 08:57 10:34 10:36 WBC RBC Hgb Hct MCH RDW Plt Count [place] # Seg Neuts % (Manual) Lymphocytes % (Manual) Seg Neutrophils # Seg Neutrophils # Man Lymphocytes # (Manual) POC ABG pH POC ABG pCO2 POC ABG pO2 Sodium Potassium Chloride Carbon Dioxide BUN Creatinine Glucose POC Glucose 236 H Lactic Acid Calcium Magnesium 1.50 L Total Bilirubin Direct Bilirubin AST ALT Alkaline Phosphatase Total Creatine Kinase CK-MB (CK-2) Troponin T C-Reactive Protein NT-Pro-B Natriuret Pep Total Protein Albumin LDL Cholesterol Direct HDL Cholesterol Crossmatch See Detail 03/05/18 03/05/18 03/05/18 14:45 16:37 21:04 WBC RBC Hgb Hct MCH RDW Plt Count [place] # Seg Neuts % (Manual) Lymphocytes % (Manual) Seg Neutrophils # Seg Neutrophils # Man Lymphocytes # (Manual) POC ABG pH 7.058 L 7.055 L POC ABG pCO2 27.7 L 29.3 L POC ABG pO2 247 H 123 H Sodium Potassium Chloride Carbon Dioxide BUN Creatinine Glucose POC Glucose Lactic Acid 13.00 H* Calcium Magnesium Total Bilirubin Direct Bilirubin AST ALT Alkaline Phosphatase Total Creatine Kinase CK-MB (CK-2) Troponin T C-Reactive Protein NT-Pro-B Natriuret Pep Total Protein Albumin LDL Cholesterol Direct HDL Cholesterol Crossmatch 03/06/18 03/06/18 03/06/18 00:36 04:59 07:34 WBC RBC Hgb Hct MCH RDW Plt Count [place] # Seg Neuts % (Manual) Lymphocytes % (Manual) Seg Neutrophils # Seg Neutrophils # Man Lymphocytes # (Manual) POC ABG pH 7.081 L 7.197 L POC ABG pCO2 28.2 L 29.8 L POC ABG pO2 74 L Sodium Potassium Chloride Carbon Dioxide BUN Creatinine Glucose POC Glucose 112 H Lactic Acid Calcium Magnesium Total Bilirubin Direct Bilirubin AST ALT Alkaline Phosphatase Total Creatine Kinase CK-MB (CK-2) Troponin T C-Reactive Protein NT-Pro-B Natriuret Pep Total Protein Albumin LDL Cholesterol Direct HDL Cholesterol Crossmatch 03/06/18 03/06/18 03/06/18 09:00 09:00 13:55 WBC 24.2 H RBC Hgb Hct MCH RDW 19.6 H Plt Count 73 L [place] # Seg Neuts % (Manual) Lymphocytes % (Manual) Seg Neutrophils # Seg Neutrophils # Man Lymphocytes # (Manual) POC ABG pH POC ABG pCO2 POC ABG pO2 Sodium 148 H Potassium 7.1 H* D Chloride Carbon Dioxide 13 L BUN 33 H Creatinine 3.2 H D Glucose 213 H POC Glucose 185 H Lactic Acid Calcium 4.2 L* Magnesium Total Bilirubin 1.70 H Direct Bilirubin 1.6 H AST 1427 H ALT 1087 H Alkaline Phosphatase Total Creatine Kinase CK-MB (CK-2) Troponin T C-Reactive Protein NT-Pro-B Natriuret Pep Total Protein 3.0 L Albumin 0.8 L LDL Cholesterol Direct HDL Cholesterol Crossmatch 03/06/18 03/07/18 03/07/18 23:51 00:30 04:01 WBC RBC Hgb Hct MCH RDW Plt Count [place] # Seg Neuts % (Manual) Lymphocytes % (Manual) Seg Neutrophils # Seg Neutrophils # Man Lymphocytes # (Manual) POC ABG pH 7.284 L POC ABG pCO2 29.0 L POC ABG pO2 Sodium Potassium Chloride Carbon Dioxide BUN Creatinine Glucose POC Glucose 64 L 118 H Lactic Acid Calcium Magnesium Total Bilirubin Direct Bilirubin AST ALT Alkaline Phosphatase Total Creatine Kinase CK-MB (CK-2) Troponin T C-Reactive Protein NT-Pro-B Natriuret Pep Total Protein Albumin LDL Cholesterol Direct HDL Cholesterol Crossmatch 03/07/18 03/07/18 05:00 05:00 WBC 23.0 H RBC 3.62 L Hgb Hct MCH RDW 20.1 H Plt Count 31 L [place] # Seg Neuts % (Manual) Lymphocytes % (Manual) Seg Neutrophils # Seg Neutrophils # Man Lymphocytes # (Manual) POC ABG pH POC ABG pCO2 POC ABG pO2 Sodium Potassium 5.4 H D Chloride 96.9 L Carbon Dioxide 14 L BUN 33 H Creatinine 3.2 H Glucose 313 H POC Glucose Lactic Acid Calcium 3.9 L* Magnesium Total Bilirubin Direct Bilirubin AST ALT Alkaline Phosphatase Total Creatine Kinase CK-MB (CK-2) Troponin T C-Reactive Protein NT-Pro-B Natriuret Pep Total Protein Albumin LDL Cholesterol Direct HDL Cholesterol Crossmatch
[2018-03-07] MEDS ORDERED: NACL 0.9% 500 ML 500 ML IV ONE (08:00)
--- NOTE | 2018-03-07 09:06 | Progress Note ---
Assessment and Plan Cardiorespiratory arrest. Severe shock.Improved MAP.Weaning pressors Hypoglycemia. Sepsis. Acute respiratory failure. Secondary to the above. On ventilatory support Metabolic and respiratory acidosis, high anion gap Aspiration pneumonia LT lung ? CHF with high BNP Shock liver changes Severe thrombocytopenia,DIC Severe metabolic encephalopathy, hypoxic. Now leading prognosis,see also neuro comments Recommendations No family or relatives to discuss care and prognosis.Been reviewed by ethics commette chair also. In view of neurologic state, move to DNR code status recommended. Agree with neurology on comfort care,if no additional improvement is expected. Wean pressors Keep MAP > 65 Continue PRBC if Hgb < 7 Monitor for any bleeding Mechanical ventilation support, adjust FiO2 down as tolerated Prognosis poor No family available for chest discussion. Critical care time was 60 minutes of [id number] evaluation and coordination of care Subjective Date of service: 03/07/18 Principal diagnosis: shock,sepsis,coma,out of hospital arrest Interval history: Comatose off sedation,intubated Objective Vital Signs - 12hr 03/06/18 03/06/18 03/06/18 21:15 21:30 21:46 Temperature Pulse Rate 112 H 110 H 107 H Respiratory 30 H 30 H 30 H Rate Blood Pressure 126/75 126/75 129/63 O2 Sat by Pulse 58 L 59 L 63 L Oximetry 03/06/18 03/06/18 03/06/18 22:00 22:15 22:30 Temperature Pulse Rate 106 H 106 H 106 H Respiratory 30 H 30 H 30 H Rate Blood Pressure 129/63 115/70 129/63 O2 Sat by Pulse 73 L 88 89 Oximetry 03/06/18 03/06/18 03/06/18 22:46 23:00 23:16 Temperature Pulse Rate 106 H 105 H 107 H Respiratory 30 H 30 H 30 H Rate Blood Pressure 130/63 130/55 123/75 O2 Sat by Pulse 75 L 77 L 84 Oximetry 03/06/18 03/06/18 03/06/18 23:30 23:46 23:56 Temperature Pulse Rate 104 H 104 H 103 H Respiratory 30 H 30 H 30 H Rate Blood Pressure 123/75 108/67 108/67 O2 Sat by Pulse 80 L 67 L 68 L Oximetry 03/07/18 03/07/18 03/07/18 00:00 00:15 00:16 Temperature Pulse Rate 107 H 105 H 105 H Respiratory 30 H 30 H Rate Blood Pressure 108/67 86/51 O2 Sat by Pulse 67 L 68 L Oximetry 03/07/18 03/07/18 03/07/18 00:30 00:46 01:00 Temperature Pulse Rate 106 H 106 H 104 H Respiratory 30 H 30 H 30 H Rate Blood Pressure 101/40 106/22 106/22 O2 Sat by Pulse 81 L 77 L 76 L Oximetry 03/07/18 03/07/18 03/07/18 01:16 01:30 01:46 Temperature Pulse Rate 104 H 103 H 105 H Respiratory 30 H 30 H 30 H Rate Blood Pressure 82/34 107/69 140/67 O2 Sat by Pulse 77 L 78 L 77 L Oximetry 03/07/18 03/07/18 03/07/18 02:00 02:16 02:30 Temperature Pulse Rate 104 H 107 H 108 H Respiratory 30 H 30 H 30 H Rate Blood Pressure 140/67 135/98 135/98 O2 Sat by Pulse 78 L 78 L 79 L Oximetry 03/07/18 03/07/18 03/07/18 02:46 03:00 03:15 Temperature Pulse Rate 105 H 107 H 104 H Respiratory 30 H 30 H 30 H Rate Blood Pressure 147/65 147/65 119/68 O2 Sat by Pulse 79 L 75 L 78 L Oximetry 03/07/18 03/07/18 03/07/18 03:30 03:45 03:58 Temperature Pulse Rate 104 H 105 H 105 H Respiratory 30 H 30 H Rate Blood Pressure 119/68 132/78 132/78 O2 Sat by Pulse 75 L 76 L Oximetry 03/07/18 03/07/18 03/07/18 04:00 04:15 04:30 Temperature Pulse Rate 106 H 106 H 105 H Respiratory 30 H 30 H 30 H Rate Blood Pressure 132/78 125/74 125/74 O2 Sat by Pulse 76 L 71 L Oximetry 03/07/18 03/07/18 03/07/18 04:46 05:00 05:16 Temperature Pulse Rate 105 H 105 H 105 H Respiratory 30 H 30 H 30 H Rate Blood Pressure 125/74 114/69 144/112 O2 Sat by Pulse 65 L 70 L 65 L Oximetry 03/07/18 03/07/18 03/07/18 05:26 05:30 05:36 Temperature Pulse Rate 108 H 106 H 107 H Respiratory 30 H 30 H 30 H Rate Blood Pressure 144/112 114/66 O2 Sat by Pulse 66 L 64 L 65 L Oximetry 03/07/18 03/07/18 03/07/18 05:40 05:46 05:50 Temperature Pulse Rate 139 H 107 H 108 H Respiratory 30 H 30 H 30 H Rate Blood Pressure O2 Sat by Pulse 64 L 66 L 70 L Oximetry 03/07/18 03/07/18 03/07/18 05:56 06:00 06:06 Temperature Pulse Rate 136 H 106 H 127 H Respiratory 30 H 30 H 30 H Rate Blood Pressure 122/77 116/80 O2 Sat by Pulse 64 L 65 L 64 L Oximetry 03/07/18 03/07/18 03/07/18 06:10 06:15 06:20 Temperature Pulse Rate 110 H 199 H 200 H Respiratory 30 H 31 H 30 H Rate Blood Pressure 108/89 116/80 O2 Sat by Pulse 64 L 73 L 73 L Oximetry 03/07/18 03/07/18 03/07/18 06:26 06:30 06:36 Temperature Pulse Rate 199 H 198 H 198 H Respiratory 30 H 27 H 29 H Rate Blood Pressure 68/49 O2 Sat by Pulse 70 L 65 L 51 L Oximetry 03/07/18 03/07/18 03/07/18 06:40 06:46 06:50 Temperature Pulse Rate 92 H 112 H 202 H Respiratory 30 H 30 H 30 H Rate Blood Pressure 116/80 105/83 105/83 O2 Sat by Pulse 46 L 48 L 48 L Oximetry 03/07/18 03/07/18 03/07/18 06:56 07:00 07:06 Temperature Pulse Rate 197 H 196 H 199 H Respiratory 30 H 30 H 30 H Rate Blood Pressure O2 Sat by Pulse 55 L 56 L 52 L Oximetry 03/07/18 03/07/18 03/07/18 07:10 07:16 07:20 Temperature Pulse Rate 198 H 196 H 195 H Respiratory 29 H 30 H 30 H Rate Blood Pressure O2 Sat by Pulse 62 L 49 L 46 L Oximetry 03/07/18 03/07/18 03/07/18 07:26 07:30 07:36 Temperature Pulse Rate 194 H 194 H 189 H Respiratory 30 H 30 H 30 H Rate Blood Pressure O2 Sat by Pulse 57 L 66 L 62 L Oximetry 03/07/18 03/07/18 03/07/18 07:46 08:00 08:16 Temperature 98.1 F Pulse Rate 194 H 194 H 200 H Respiratory 29 H 30 H 30 H Rate Blood Pressure 105/83 105/83 154/72 O2 Sat by Pulse 64 L 69 L 71 L Oximetry 03/07/18 03/07/18 08:30 08:45 Temperature Pulse Rate 191 H 103 H Respiratory 30 H 30 H Rate Blood Pressure 154/72 133/91 O2 Sat by Pulse 59 L 74 L Oximetry Constitutional: comatose, other (endotracheal tube in position) Eyes: non-icteric Neck: no JVD (intubated orally) Ascultation: Bilateral: clear, diminished breath sounds, rhonchi (occasional) Cardiovascular: regular rate and rhythm (tachycardic) Gastrointestinal: normoactive bowel sounds, non-distended Integumentary: normal Extremities: no edema, other (left pretibial IO line in place) Neurologic: other (poor pupil response, no corneal,comatose, no posturing or toxic stimuli resposne) CBC and BMP: 03/07/18 05:00 03/07/18 05:00 ABG, PT/INR, D-dimer: ABG POC ABG pH 7.284 (7.35-7.45) L 03/07/18 04:01 POC ABG pCO2 29.0 (35-45) L 03/07/18 04:01 POC ABG pO2 91 (80-105) 03/07/18 04:01 POC ABG HCO3 13.8 03/07/18 04:01 POC ABG Total CO2 15 03/07/18 04:01 POC ABG O2 Sat 96 03/07/18 04:01 Abnormal lab findings: Abnormal Labs 03/03/18 03/03/18 03/03/18 17:41 19:31 19:31 WBC 14.6 H RBC 3.28 L Hgb 9.3 L Hct 28.7 L MCH RDW 20.9 H Plt Count [place] # Seg Neuts % (Manual) 79.0 H Lymphocytes % (Manual) Seg Neutrophils # Seg Neutrophils # Man 11.5 H Lymphocytes # (Manual) POC ABG pH 6.867 L POC ABG pCO2 64.2 H POC ABG pO2 272 H Sodium Potassium Chloride 97.4 L Carbon Dioxide 16 L BUN Creatinine Glucose 140 H POC Glucose Lactic Acid Calcium 7.8 L Magnesium Total Bilirubin Direct Bilirubin AST 2089 H ALT 423 H Alkaline Phosphatase 160 H Total Creatine Kinase CK-MB (CK-2) Troponin T 0.063 H C-Reactive Protein NT-Pro-B Natriuret Pep 2107 H Total Protein 5.4 L Albumin 1.7 L LDL Cholesterol Direct 45 L HDL Cholesterol 19 L Crossmatch 03/03/18 03/03/18 03/03/18 19:31 20:10 20:56 WBC RBC Hgb Hct MCH RDW Plt Count [place] # Seg Neuts % (Manual) Lymphocytes % (Manual) Seg Neutrophils # Seg Neutrophils # Man Lymphocytes # (Manual) POC ABG pH 7.131 L POC ABG pCO2 49.2 H POC ABG pO2 Sodium Potassium Chloride Carbon Dioxide BUN Creatinine Glucose POC Glucose Lactic Acid 13.20 H* 12.90 H* Calcium Magnesium Total Bilirubin Direct Bilirubin AST ALT Alkaline Phosphatase Total Creatine Kinase CK-MB (CK-2) Troponin T C-Reactive Protein NT-Pro-B Natriuret Pep Total Protein Albumin LDL Cholesterol Direct HDL Cholesterol Crossmatch 03/03/18 03/04/18 03/04/18 21:41 04:34 08:39 WBC RBC Hgb Hct MCH RDW Plt Count [place] # Seg Neuts % (Manual) Lymphocytes % (Manual) Seg Neutrophils # Seg Neutrophils # Man Lymphocytes # (Manual) POC ABG pH 7.151 L POC ABG pCO2 POC ABG pO2 230 H Sodium Potassium Chloride Carbon Dioxide BUN Creatinine Glucose POC Glucose 176 H Lactic Acid 13.10 H* Calcium Magnesium Total Bilirubin Direct Bilirubin AST ALT Alkaline Phosphatase Total Creatine Kinase CK-MB (CK-2) Troponin T C-Reactive Protein NT-Pro-B Natriuret Pep Total Protein Albumin LDL Cholesterol Direct HDL Cholesterol Crossmatch 03/04/18 03/04/18 03/04/18 10:52 14:30 14:30 WBC RBC Hgb Hct MCH RDW Plt Count [place] # Seg Neuts % (Manual) Lymphocytes % (Manual) Seg Neutrophils # Seg Neutrophils # Man Lymphocytes # (Manual) POC ABG pH 7.147 L POC ABG pCO2 POC ABG pO2 66 L Sodium Potassium 5.1 H Chloride Carbon Dioxide 14 L BUN 23 H Creatinine 2.0 H D Glucose 108 H POC Glucose Lactic Acid 10.50 H* Calcium 6.5 L D Magnesium Total Bilirubin Direct Bilirubin AST 2380 H ALT 470 H Alkaline Phosphatase Total Creatine Kinase 5787 H CK-MB (CK-2) 41.0 H Troponin T 0.177 H* D C-Reactive Protein NT-Pro-B Natriuret Pep Total Protein 4.9 L Albumin 1.8 L LDL Cholesterol Direct HDL Cholesterol Crossmatch 03/04/18 03/04/18 03/04/18 14:30 14:30 14:32 WBC 21.2 H RBC 3.54 L Hgb 9.6 L Hct MCH 27 L RDW 21.0 H Plt Count [place] # 1.4 H Seg Neuts % (Manual) 87.0 H Lymphocytes % (Manual) 4.0 L Seg Neutrophils # 20.0 H Seg Neutrophils # Man 18.4 H Lymphocytes # (Manual) 0.8 L POC ABG pH 7.166 L POC ABG pCO2 POC ABG pO2 77 L Sodium Potassium Chloride Carbon Dioxide BUN Creatinine Glucose POC Glucose Lactic Acid Calcium Magnesium 1.60 L Total Bilirubin Direct Bilirubin AST ALT Alkaline Phosphatase Total Creatine Kinase CK-MB (CK-2) Troponin T C-Reactive Protein NT-Pro-B Natriuret Pep Total Protein Albumin LDL Cholesterol Direct HDL Cholesterol Crossmatch 03/04/18 03/04/18 03/04/18 18:19 23:06 23:06 WBC RBC Hgb Hct MCH RDW Plt Count [place] # Seg Neuts % (Manual) Lymphocytes % (Manual) Seg Neutrophils # Seg Neutrophils # Man Lymphocytes # (Manual) POC ABG pH POC ABG pCO2 POC ABG pO2 Sodium Potassium Chloride Carbon Dioxide BUN Creatinine Glucose POC Glucose Lactic Acid 11.20 H* 10.60 H* Calcium Magnesium Total Bilirubin Direct Bilirubin AST ALT Alkaline Phosphatase Total Creatine Kinase CK-MB (CK-2) Troponin T C-Reactive Protein 12.80 H NT-Pro-B Natriuret Pep Total Protein Albumin LDL Cholesterol Direct HDL Cholesterol Crossmatch 03/04/18 03/04/18 03/05/18 23:06 Unknown 06:05 WBC RBC Hgb Hct MCH RDW Plt Count [place] # Seg Neuts % (Manual) Lymphocytes % (Manual) Seg Neutrophils # Seg Neutrophils # Man Lymphocytes # (Manual) POC ABG pH 7.097 L POC ABG pCO2 31.5 L POC ABG pO2 197 H Sodium Potassium 5.3 H Chloride Carbon Dioxide BUN Creatinine Glucose POC Glucose Lactic Acid Calcium Magnesium Total Bilirubin Direct Bilirubin AST ALT Alkaline Phosphatase Total Creatine Kinase 497 H CK-MB (CK-2) 4.1 H Troponin T 0.053 H C-Reactive Protein NT-Pro-B Natriuret Pep Total Protein Albumin LDL Cholesterol Direct HDL Cholesterol Crossmatch 03/05/18 03/05/18 03/05/18 08:57 08:57 08:57 WBC 15.2 H RBC 2.54 L Hgb 6.9 L Hct 21.5 L D MCH 27 L RDW 20.7 H Plt Count 73 L [place] # Seg Neuts % (Manual) Lymphocytes % (Manual) 8.0 L Seg Neutrophils # Seg Neutrophils # Man 9.6 H Lymphocytes # (Manual) POC ABG pH POC ABG pCO2 POC ABG pO2 Sodium Potassium 5.2 H Chloride Carbon Dioxide 15 L BUN 23 H Creatinine 2.1 H Glucose 6 L* POC Glucose Lactic Acid 12.10 H* Calcium 4.0 L* D Magnesium Total Bilirubin Direct Bilirubin AST 3549 H ALT 536 H Alkaline Phosphatase Total Creatine Kinase CK-MB (CK-2) Troponin T C-Reactive Protein NT-Pro-B Natriuret Pep Total Protein 3.1 L D Albumin 1.0 L LDL Cholesterol Direct HDL Cholesterol Crossmatch 03/05/18 03/05/18 03/05/18 08:57 10:34 10:36 WBC RBC Hgb Hct MCH RDW Plt Count [place] # Seg Neuts % (Manual) Lymphocytes % (Manual) Seg Neutrophils # Seg Neutrophils # Man Lymphocytes # (Manual) POC ABG pH POC ABG pCO2 POC ABG pO2 Sodium Potassium Chloride Carbon Dioxide BUN Creatinine Glucose POC Glucose 236 H Lactic Acid Calcium Magnesium 1.50 L Total Bilirubin Direct Bilirubin AST ALT Alkaline Phosphatase Total Creatine Kinase CK-MB (CK-2) Troponin T C-Reactive Protein NT-Pro-B Natriuret Pep Total Protein Albumin LDL Cholesterol Direct HDL Cholesterol Crossmatch See Detail 03/05/18 03/05/18 03/05/18 14:45 16:37 21:04 WBC RBC Hgb Hct MCH RDW Plt Count [place] # Seg Neuts % (Manual) Lymphocytes % (Manual) Seg Neutrophils # Seg Neutrophils # Man Lymphocytes # (Manual) POC ABG pH 7.058 L 7.055 L POC ABG pCO2 27.7 L 29.3 L POC ABG pO2 247 H 123 H Sodium Potassium Chloride Carbon Dioxide BUN Creatinine Glucose POC Glucose Lactic Acid 13.00 H* Calcium Magnesium Total Bilirubin Direct Bilirubin AST ALT Alkaline Phosphatase Total Creatine Kinase CK-MB (CK-2) Troponin T C-Reactive Protein NT-Pro-B Natriuret Pep Total Protein Albumin LDL Cholesterol Direct HDL Cholesterol Crossmatch 03/06/18 03/06/18 03/06/18 00:36 04:59 07:34 WBC RBC Hgb Hct MCH RDW Plt Count [place] # Seg Neuts % (Manual) Lymphocytes % (Manual) Seg Neutrophils # Seg Neutrophils # Man Lymphocytes # (Manual) POC ABG pH 7.081 L 7.197 L POC ABG pCO2 28.2 L 29.8 L POC ABG pO2 74 L Sodium Potassium Chloride Carbon Dioxide BUN Creatinine Glucose POC Glucose 112 H Lactic Acid Calcium Magnesium Total Bilirubin Direct Bilirubin AST ALT Alkaline Phosphatase Total Creatine Kinase CK-MB (CK-2) Troponin T C-Reactive Protein NT-Pro-B Natriuret Pep Total Protein Albumin LDL Cholesterol Direct HDL Cholesterol Crossmatch 03/06/18 03/06/18 03/06/18 09:00 09:00 13:55 WBC 24.2 H RBC Hgb Hct MCH RDW 19.6 H Plt Count 73 L [place] # Seg Neuts % (Manual) Lymphocytes % (Manual) Seg Neutrophils # Seg Neutrophils # Man Lymphocytes # (Manual) POC ABG pH POC ABG pCO2 POC ABG pO2 Sodium 148 H Potassium 7.1 H* D Chloride Carbon Dioxide 13 L BUN 33 H Creatinine 3.2 H D Glucose 213 H POC Glucose 185 H Lactic Acid Calcium 4.2 L* Magnesium Total Bilirubin 1.70 H Direct Bilirubin 1.6 H AST 1427 H ALT 1087 H Alkaline Phosphatase Total Creatine Kinase CK-MB (CK-2) Troponin T C-Reactive Protein NT-Pro-B Natriuret Pep Total Protein 3.0 L Albumin 0.8 L LDL Cholesterol Direct HDL Cholesterol Crossmatch 03/06/18 03/07/18 03/07/18 23:51 00:30 04:01 WBC RBC Hgb Hct MCH RDW Plt Count [place] # Seg Neuts % (Manual) Lymphocytes % (Manual) Seg Neutrophils # Seg Neutrophils # Man Lymphocytes # (Manual) POC ABG pH 7.284 L POC ABG pCO2 29.0 L POC ABG pO2 Sodium Potassium Chloride Carbon Dioxide BUN Creatinine Glucose POC Glucose 64 L 118 H Lactic Acid Calcium Magnesium Total Bilirubin Direct Bilirubin AST ALT Alkaline Phosphatase Total Creatine Kinase CK-MB (CK-2) Troponin T C-Reactive Protein NT-Pro-B Natriuret Pep Total Protein Albumin LDL Cholesterol Direct HDL Cholesterol Crossmatch 03/07/18 03/07/18 05:00 05:00 WBC 23.0 H RBC 3.62 L Hgb Hct MCH RDW 20.1 H Plt Count 31 L [place] # Seg Neuts % (Manual) Lymphocytes % (Manual) Seg Neutrophils # Seg Neutrophils # Man Lymphocytes # (Manual) POC ABG pH POC ABG pCO2 POC ABG pO2 Sodium Potassium 5.4 H D Chloride 96.9 L Carbon Dioxide 14 L BUN 33 H Creatinine 3.2 H Glucose 313 H POC Glucose Lactic Acid Calcium 3.9 L* Magnesium Total Bilirubin Direct Bilirubin AST ALT Alkaline Phosphatase Total Creatine Kinase CK-MB (CK-2) Troponin T C-Reactive Protein NT-Pro-B Natriuret Pep Total Protein Albumin LDL Cholesterol Direct HDL Cholesterol Crossmatch
[2018-03-07] MEDS ORDERED: VANCOMYCIN/NS 1 GM/250 ML 1 GM/250 ML BAG IV SCH (10:00)
--- NOTE | 2018-03-07 10:31 | Progress Note ---
Assessment and Plan Impression: * JIM * Hyperkalemia * Metabolic acidosis * no brain stem function * hypocalcemia * acute resp failure * s/p cardiac arrest * hypomagnesemia Plan: * jim due to ATN, keep MAP>65 * bicarbonate gtt * added d10 for hypoglycemia * replete calcium and mag prn * follow up daily lytes * strict i/os * attempted HRIS MANAGER, unable to tolerate * avoid nephrotoxins * neuro note reviewed, no brain stem activity, will not provide any more dialysis from renal standpoint as it is futile * comfort measures appropriate Subjective Date of service: 03/07/18 Principal diagnosis: shock,sepsis,coma,out of hospital arrest Interval history: resting in bed today Objective - Exam Narrative Exam: General appearance: other (intubated, nonresponsive, not on sedation) Cardiac: Positive: Reg Rate and Rhythm, S1/S2 Lungs: Positive: Decreased Breath Sounds, Oxygen, Ventilated Respirations Neuro: Positive: Other (intubated, nonresponsive, not on sedation) Skin: Negative: Rash, Wound Musculoskeletal: No Fluid Collection Extremities: Absent: edema - Vital Signs Vital signs: Vital Signs - 12hr 03/06/18 03/06/18 03/06/18 22:46 23:00 23:16 Temperature Pulse Rate 106 H 105 H 107 H Respiratory 30 H 30 H 30 H Rate Blood Pressure 130/63 130/55 123/75 O2 Sat by Pulse 75 L 77 L 84 Oximetry 03/06/18 03/06/18 03/06/18 23:30 23:46 23:56 Temperature Pulse Rate 104 H 104 H 103 H Respiratory 30 H 30 H 30 H Rate Blood Pressure 123/75 108/67 108/67 O2 Sat by Pulse 80 L 67 L 68 L Oximetry 03/07/18 03/07/18 03/07/18 00:00 00:15 00:16 Temperature Pulse Rate 107 H 105 H 105 H Respiratory 30 H 30 H Rate Blood Pressure 108/67 86/51 O2 Sat by Pulse 67 L 68 L Oximetry 03/07/18 03/07/18 03/07/18 00:30 00:46 01:00 Temperature Pulse Rate 106 H 106 H 104 H Respiratory 30 H 30 H 30 H Rate Blood Pressure 101/40 106/22 106/22 O2 Sat by Pulse 81 L 77 L 76 L Oximetry 03/07/18 03/07/18 03/07/18 01:16 01:30 01:46 Temperature Pulse Rate 104 H 103 H 105 H Respiratory 30 H 30 H 30 H Rate Blood Pressure 82/34 107/69 140/67 O2 Sat by Pulse 77 L 78 L 77 L Oximetry 03/07/18 03/07/18 03/07/18 02:00 02:16 02:30 Temperature Pulse Rate 104 H 107 H 108 H Respiratory 30 H 30 H 30 H Rate Blood Pressure 140/67 135/98 135/98 O2 Sat by Pulse 78 L 78 L 79 L Oximetry 03/07/18 03/07/18 03/07/18 02:46 03:00 03:15 Temperature Pulse Rate 105 H 107 H 104 H Respiratory 30 H 30 H 30 H Rate Blood Pressure 147/65 147/65 119/68 O2 Sat by Pulse 79 L 75 L 78 L Oximetry 03/07/18 03/07/18 03/07/18 03:30 03:45 03:58 Temperature Pulse Rate 104 H 105 H 105 H Respiratory 30 H 30 H Rate Blood Pressure 119/68 132/78 132/78 O2 Sat by Pulse 75 L 76 L Oximetry 03/07/18 03/07/18 03/07/18 04:00 04:15 04:30 Temperature Pulse Rate 106 H 106 H 105 H Respiratory 30 H 30 H 30 H Rate Blood Pressure 132/78 125/74 125/74 O2 Sat by Pulse 76 L 71 L Oximetry 03/07/18 03/07/18 03/07/18 04:46 05:00 05:16 Temperature Pulse Rate 105 H 105 H 105 H Respiratory 30 H 30 H 30 H Rate Blood Pressure 125/74 114/69 144/112 O2 Sat by Pulse 65 L 70 L 65 L Oximetry 03/07/18 03/07/18 03/07/18 05:26 05:30 05:36 Temperature Pulse Rate 108 H 106 H 107 H Respiratory 30 H 30 H 30 H Rate Blood Pressure 144/112 114/66 O2 Sat by Pulse 66 L 64 L 65 L Oximetry 03/07/18 03/07/18 03/07/18 05:40 05:46 05:50 Temperature Pulse Rate 139 H 107 H 108 H Respiratory 30 H 30 H 30 H Rate Blood Pressure O2 Sat by Pulse 64 L 66 L 70 L Oximetry 03/07/18 03/07/18 03/07/18 05:56 06:00 06:06 Temperature Pulse Rate 136 H 106 H 127 H Respiratory 30 H 30 H 30 H Rate Blood Pressure 122/77 116/80 O2 Sat by Pulse 64 L 65 L 64 L Oximetry 03/07/18 03/07/18 03/07/18 06:10 06:15 06:20 Temperature Pulse Rate 110 H 199 H 200 H Respiratory 30 H 31 H 30 H Rate Blood Pressure 108/89 116/80 O2 Sat by Pulse 64 L 73 L 73 L Oximetry 03/07/18 03/07/18 03/07/18 06:26 06:30 06:36 Temperature Pulse Rate 199 H 198 H 198 H Respiratory 30 H 27 H 29 H Rate Blood Pressure 68/49 O2 Sat by Pulse 70 L 65 L 51 L Oximetry 03/07/18 03/07/18 03/07/18 06:40 06:46 06:50 Temperature Pulse Rate 92 H 112 H 202 H Respiratory 30 H 30 H 30 H Rate Blood Pressure 116/80 105/83 105/83 O2 Sat by Pulse 46 L 48 L 48 L Oximetry 03/07/18 03/07/18 03/07/18 06:56 07:00 07:06 Temperature Pulse Rate 197 H 196 H 199 H Respiratory 30 H 30 H 30 H Rate Blood Pressure O2 Sat by Pulse 55 L 56 L 52 L Oximetry 03/07/18 03/07/18 03/07/18 07:10 07:16 07:20 Temperature Pulse Rate 198 H 196 H 195 H Respiratory 29 H 30 H 30 H Rate Blood Pressure O2 Sat by Pulse 62 L 49 L 46 L Oximetry 03/07/18 03/07/18 03/07/18 07:26 07:30 07:36 Temperature Pulse Rate 194 H 194 H 189 H Respiratory 30 H 30 H 30 H Rate Blood Pressure O2 Sat by Pulse 57 L 66 L 62 L Oximetry 03/07/18 03/07/18 03/07/18 07:46 08:00 08:16 Temperature 98.1 F Pulse Rate 194 H 194 H 200 H Respiratory 29 H 30 H 30 H Rate Blood Pressure 105/83 105/83 154/72 O2 Sat by Pulse 64 L 69 L 71 L Oximetry 03/07/18 03/07/18 03/07/18 08:30 08:45 09:00 Temperature Pulse Rate 191 H 103 H 103 H Respiratory 30 H 30 H 30 H Rate Blood Pressure 154/72 133/91 133/79 O2 Sat by Pulse 59 L 74 L 86 Oximetry - Lab 03/07/18 05:00 03/07/18 05:00 Most recent lab results Calcium 3.9 mg/dL (8.4-10.2) L* 03/07/18 05:00 Magnesium 1.50 mg/dL (1.7-2.3) L 03/05/18 08:57
--- NOTE | 2018-03-07 10:42 | Progress Note ---
Assessment and Plan Cont digoxin for paroxysmal SVT. Obtain digoxin level in AM. Cont supportive measures. Pt has been made AND/DNR code status. The patient has been seen in conjunction with Dr. Light who agrees with the assessment and plan of care. - Patient Problems (1) Cardiopulmonary arrest with successful resuscitation Current Visit: Yes Status: Acute (2) Respiratory failure requiring intubation Current Visit: Yes Status: Acute (3) Paroxysmal SVT (supraventricular tachycardia) Current Visit: Yes Status: Acute (4) Altered mental status Current Visit: Yes Status: Acute (5) Pneumonia Current Visit: Yes Status: Acute Qualifiers: Pneumonia type: due to unspecified organism Laterality: left Lung location: unspecified part of lung Qualified Code(s): J18.9 - Pneumonia, unspecified organism (6) Sepsis Current Visit: Yes Status: Acute Qualifiers: Sepsis type: sepsis due to unspecified organism Qualified Code(s): A41.9 - Sepsis, unspecified organism (7) Metabolic acidosis Current Visit: Yes Status: Acute (8) GI bleed Current Visit: Yes Status: Suspected (9) Anemia Current Visit: Yes Status: Acute (10) Elevated troponin Current Visit: Yes Status: Acute (11) Transaminitis Current Visit: Yes Status: Acute (12) Malnutrition Current Visit: Yes Status: Chronic (13) Acute renal failure Current Visit: Yes Status: Acute (14) Hyperkalemia Current Visit: Yes Status: Acute (15) Hypocalcemia Current Visit: Yes Status: Acute Subjective Date of service: 03/07/18 Principal diagnosis: shock,sepsis,coma,out of hospital arrest Interval history: pt remains intubated, nonresponsive, not on sedation, requiring multiple vasopressors. no family at bedside. in sinus tachycardia in telemetry. had a bout of SVT yesterday evening following initiation of HD and another bout this AM and thus was initiated on digoxin. Objective Last Vital Signs Temp 98.1 F 03/07/18 08:00 Pulse 103 H 03/07/18 09:00 Resp 30 H 03/07/18 09:00 BP 133/79 03/07/18 09:00 Pulse Ox 86 03/07/18 09:00 - Physical Examination General: Other (intubated, nonresponsive, not on sedation) HEENT: Positive: Other (pupils fixed) Cardiac: Positive: S1/S2, Tachycardia Lungs: Positive: Decreased Breath Sounds, Ventilated Respirations Neuro: Positive: Other (intubated, nonresponsive, not on sedation) Skin: Negative: Rash, Wound Musculoskeletal: No Fluid Collection Extremities: Absent: edema - Labs and Meds CBC 03/07/18 Range/Units 05:00 WBC 23.0 H (4.5-11.0) K/mm3 RBC 3.62 L (3.65-5.03) M/mm3 Hgb 10.2 (10.1-14.3) gm/dl Hct 31.2 (30.3-42.9) % Plt Count 31 L (140-440) K/mm3 Comprehensive Metabolic Panel 03/07/18 Range/Units 05:00 Sodium 145 (137-145) mmol/L Potassium 5.4 H D (3.6-5.0) mmol/L Chloride 96.9 L (98-107) mmol/L Carbon Dioxide 14 L (22-30) mmol/L BUN 33 H (7-17) mg/dL Creatinine 3.2 H (0.7-1.2) mg/dL Glucose 313 H (65-100) mg/dL Calcium 3.9 L* (8.4-10.2) mg/dL - Imaging and Cardiology EKG: report reviewed, image reviewed Echo: report reviewed (TDS, EF 65-70%, mild to mod LVH, hyperdynamic LV, abnormal diastolic function, RA mildly dilated, mod TR, trace NM. ) - Telemetry EKG Rhythm: Sinus Tachycardia - EKG Sinus rhythms and dysrhythmias: sinus rhythm
[2018-03-07] MEDS: HEPARIN SUB-Q SCH ×2 (11:18→22:22)
[2018-03-07] MEDS: PEPCID IV SCH (11:19)
--- NOTE | 2018-03-07 13:40 | Progress Note ---
Assessment and Plan Assessment and plan: Patient is a 62 year old female recently discharged from [facility] to a personal nursing home. Per animal care technician patient was homeless at the time of admission to [place] and no other information was available. 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 Discussed with ethics committee since no family is around, will change to DNR status with physician signatures per their recommendation Continue full supportive cre labile blood glucose level, INSULIN PER SLIDING SCALE CONSIDERING PATIENT ON STEROIDS Monitor for any bleeding Mechanical ventilation support, adjust FiO2 down as tolerated Replace electrolytes Access for dialysis placed AND TO BE Dialyzed today Neurology eval noted- 'persistent coma, no sign of brain stem function with recommendation to move to comfort care Continue mechanical ventilation Building And Grounds Supervisor support noted, if no improvement in mental status will obtain Neurology mary Continue pressors Try to get records from [place] and see if there is family Poor prognosis DVT/GI prophy Plan discussed with consultants and animal care technician The high probability of a clinically significant, sudden or life threatening deterioration of the [pulmonary, cardiology,neurology] system(s) required my full and direct attention, intervention and personal management. The aggregate critical care time was [45] minutes. This time is in addition to time spent performing reported procedures but includes the following: [x] Data Review and interpretation [x] Patient assessment and monitoring of vital signs [x] Documentation [x] Medication orders and management History Interval history: Patient seen and examined, remains very unresponsive with none reactive pupil. maxed out on pressors. Hospitalist Physical - Physical exam Narrative exam: General appearance: other (intubated, nonresponsive, not on sedation) Cardiac: Positive: Reg Rate and Rhythm, S1/S2 Lungs: Positive: Decreased Breath Sounds, Oxygen, Ventilated Respirations Abdomen:soft, hypoactive bs Musculoskeletal: No Fluid Collection Extremities: Anascar edema Neuro: Positive: Other (intubated, nonresponsive, not on sedation) Skin: Negative: Rash, Wound - Constitutional Vitals: Temp Pulse Resp BP Pulse Ox 98.0 F 95 H 29 H 83/49 89 03/07/18 12:00 03/07/18 12:30 03/07/18 12:30 03/07/18 12:30 03/07/18 12:30 General appearance: Present: other (intubated, nonresponsive, not on sedation) Results - Labs CBC & Chem 7: 03/07/18 05:00 03/08/18 01:05 Labs: Laboratory Last Values WBC 23.0 K/mm3 (4.5-11.0) H 03/07/18 05:00 RBC 3.62 M/mm3 (3.65-5.03) L 03/07/18 05:00 Hgb 10.2 gm/dl (10.1-14.3) 03/07/18 05:00 Hct 31.2 % (30.3-42.9) 03/07/18 05:00 MCV 86 fl (79-97) 03/07/18 05:00 MCH 28 pg (28-32) 03/07/18 05:00 MCHC 33 % (30-34) 03/07/18 05:00 RDW 20.1 % (13.2-15.2) H 03/07/18 05:00 Plt Count 31 K/mm3 (140-440) L 03/07/18 05:00 Lymph % (Auto) Customer Quality Engineer 03/05/18 08:57 Terrell % (Auto) Customer Quality Engineer 03/05/18 08:57 Eos % (Auto) Customer Quality Engineer 03/05/18 08:57 Baso % (Auto) Customer Quality Engineer 03/05/18 08:57 Lymph # Customer Quality Engineer 03/05/18 08:57 Terrell # Customer Quality Engineer 03/05/18 08:57 Eos # Customer Quality Engineer 03/05/18 08:57 Baso # Customer Quality Engineer 03/05/18 08:57 Add Manual Diff Complete 03/05/18 08:57 Total Counted 100 03/05/18 08:57 Seg Neutrophils % Customer Quality Engineer 03/05/18 08:57 Seg Neuts % (Manual) 63.0 % (40.0-70.0) 03/05/18 08:57 Band Neutrophils % 19.0 % 03/05/18 08:57 Lymphocytes % (Manual) 8.0 % (13.4-35.0) L 03/05/18 08:57 Reactive Lymphs % (Man) 0 % 03/05/18 08:57 Monocytes % (Manual) 4.0 % (0.0-7.3) 03/05/18 08:57 Eosinophils % (Manual) 0 % (0.0-4.3) 03/05/18 08:57 Basophils % (Manual) 0 % (0.0-1.8) 03/05/18 08:57 Metamyelocytes % 6.0 % 03/05/18 08:57 Myelocytes % 0 % 03/05/18 08:57 Promyelocytes % 0 % 03/05/18 08:57 Blast Cells % 0 % 03/05/18 08:57 Nucleated RBC % Not Reportable 03/05/18 08:57 Seg Neutrophils # Customer Quality Engineer 03/05/18 08:57 Seg Neutrophils # Man 9.6 K/mm3 (1.8-7.7) H 03/05/18 08:57 Band Neutrophils # 2.9 K/mm3 03/05/18 08:57 Lymphocytes # (Manual) 1.2 K/mm3 (1.2-5.4) 03/05/18 08:57 Abs React Lymphs (Man) 0.0 K/mm3 03/05/18 08:57 Monocytes # (Manual) 0.6 K/mm3 (0.0-0.8) 03/05/18 08:57 Eosinophils # (Manual) 0.0 K/mm3 (0.0-0.4) 03/05/18 08:57 Basophils # (Manual) 0.0 K/mm3 (0.0-0.1) 03/05/18 08:57 Metamyelocytes # 0.9 K/mm3 03/05/18 08:57 Myelocytes # 0.0 K/mm3 03/05/18 08:57 Promyelocytes # 0.0 K/mm3 03/05/18 08:57 Blast Cells # 0.0 K/mm3 03/05/18 08:57 WBC Morphology Not Reportable 03/05/18 08:57 Hypersegmented Neuts Not Reportable 03/05/18 08:57 Hyposegmented Neuts Not Reportable 03/05/18 08:57 Hypogranular Neuts Not Reportable 03/05/18 08:57 Smudge Cells Not Reportable 03/05/18 08:57 Toxic Granulation Not Reportable 03/05/18 08:57 Toxic Vacuolation Not Reportable 03/05/18 08:57 Dohle Bodies Not Reportable 03/05/18 08:57 Pelger-Huet Anomaly Not Reportable 03/05/18 08:57 Juan Rods Not Reportable 03/05/18 08:57 Platelet Estimate Consistent w auto 03/05/18 08:57 Clumped Platelets Not Reportable 03/05/18 08:57 Plt Clumps, EDTA Not Reportable 03/05/18 08:57 Large Platelets 1+ 03/05/18 08:57 Giant Platelets Not Reportable 03/05/18 08:57 Platelet Satelliting Not Reportable 03/05/18 08:57 Plt Morphology Comment Not Reportable 03/05/18 08:57 RBC Morphology Not Reportable 03/05/18 08:57 Dimorphic RBCs Not Reportable 03/05/18 08:57 Polychromasia Not Reportable 03/05/18 08:57 Hypochromasia 1+ 03/05/18 08:57 Poikilocytosis Not Reportable 03/05/18 08:57 Anisocytosis 1+ 03/05/18 08:57 Microcytosis Not Reportable 03/05/18 08:57 Macrocytosis Not Reportable 03/05/18 08:57 Spherocytes Not Reportable 03/05/18 08:57 Pappenheimer Bodies Not Reportable 03/05/18 08:57 Sickle Cells Not Reportable 03/05/18 08:57 Target Cells Not Reportable 03/05/18 08:57 Tear Drop Cells Not Reportable 03/05/18 08:57 Ovalocytes Not Reportable 03/05/18 08:57 Helmet Cells Not Reportable 03/05/18 08:57 Butler-Rowley Bodies Not Reportable 03/05/18 08:57 Dundas Rings Not Reportable 03/05/18 08:57 Aris Cells Not Reportable 03/05/18 08:57 Bite Cells Not Reportable 03/05/18 08:57 Crenated Cell 1+ 03/05/18 08:57 Elliptocytes Not Reportable 03/05/18 08:57 Acanthocytes (Spur) Not Reportable 03/05/18 08:57 Rouleaux Not Reportable 03/05/18 08:57 Hemoglobin C Crystals Not Reportable 03/05/18 08:57 Schistocytes Rare 03/05/18 08:57 Malaria parasites Not Reportable 03/05/18 08:57 Bo Bodies Not Reportable 03/05/18 08:57 Hem Pathologist Commnt No 03/05/18 08:57 POC ABG pH 7.284 (7.35-7.45) L 03/07/18 04:01 POC ABG pCO2 29.0 (35-45) L 03/07/18 04:01 POC ABG pO2 91 (80-105) 03/07/18 04:01 POC ABG HCO3 13.8 03/07/18 04:01 POC ABG Total CO2 15 03/07/18 04:01 POC ABG O2 Sat 96 03/07/18 04:01 POC ABG Base Excess -13 03/07/18 04:01 FiO2 60 % 03/07/18 04:01 Sodium 145 mmol/L (137-145) 03/07/18 05:00 Potassium 5.4 mmol/L (3.6-5.0) H D 03/07/18 05:00 Chloride 96.9 mmol/L (98-107) L 03/07/18 05:00 Carbon Dioxide 14 mmol/L (22-30) L 03/07/18 05:00 Anion Gap 40 mmol/L 03/07/18 05:00 BUN 33 mg/dL (7-17) H 03/07/18 05:00 Creatinine 3.2 mg/dL (0.7-1.2) H 03/07/18 05:00 Estimated GFR 18 ml/min 03/07/18 05:00 BUN/Creatinine Ratio 10 % 03/07/18 05:00 Glucose 313 mg/dL (65-100) H 03/07/18 05:00 POC Glucose 118 (70-105) H 03/07/18 00:30 Lactic Acid 13.00 mmol/L (0.7-2.0) H* 03/05/18 14:45 Calcium 3.9 mg/dL (8.4-10.2) L* 03/07/18 05:00 Magnesium 1.50 mg/dL (1.7-2.3) L 03/05/18 08:57 Total Bilirubin 1.70 mg/dL (0.1-1.2) H 03/06/18 09:00 Direct Bilirubin 1.6 mg/dL (0-0.2) H 03/06/18 09:00 Indirect Bilirubin 0.1 mg/dL 03/06/18 09:00 AST 1427 units/L (5-40) H 03/06/18 09:00 ALT 1087 units/L (7-56) H 03/06/18 09:00 Alkaline Phosphatase 125 units/L (35-129) 03/06/18 09:00 Total Creatine Kinase 497 units/L (30-135) H 03/04/18 Unknown CK-MB (CK-2) 4.1 ng/mL (0.0-4.0) H 03/04/18 Unknown CK-MB (CK-2) Rel Index 0.8 (0-4) 03/04/18 Unknown Troponin T 0.053 ng/mL (0.00-0.029) H 03/04/18 Unknown C-Reactive Protein 12.80 mg/dL (0.00-1.30) H 03/04/18 23:06 NT-Pro-B Natriuret Pep 2107 pg/mL (0-900) H 03/03/18 19:31 Total Protein 3.0 g/dL (6.3-8.2) L 03/06/18 09:00 Albumin 0.8 g/dL (3.9-5) L 03/06/18 09:00 Albumin/Globulin Ratio 0.4 % 03/06/18 09:00 Triglycerides 102 mg/dL (2-149) 03/03/18 19:31 Cholesterol 106 mg/dL (50-199) 03/03/18 19:31 LDL Cholesterol Direct 45 mg/dL (50-130) L 03/03/18 19:31 HDL Cholesterol 19 mg/dL (40-59) L 03/03/18 19:31 Cholesterol/HDL Ratio 5.57 % 03/03/18 19:31 Random Vancomycin 8.1 ug/mL (0-40.0) 03/07/18 05:23 Urine Opiates Screen Presumptive positive 03/04/18 02:30 Urine Methadone Screen Presumptive negative 03/04/18 02:30 Ur Barbiturates Screen Presumptive negative 03/04/18 02:30 Ur Phencyclidine Scrn Presumptive negative 03/04/18 02:30 Ur Amphetamines Screen Presumptive negative 03/04/18 02:30 U Benzodiazepines Scrn Presumptive negative 03/04/18 02:30 Urine Cocaine Screen Presumptive negative 03/04/18 02:30 U Marijuana (THC) Screen Presumptive negative 03/04/18 02:30 Drugs of Abuse Note Disclamer 03/04/18 02:30 Hepatitis A IgM Ab Non-reactive (NonReactive) 03/06/18 14:19 Hep Bs Antigen Reactive (Negative) 03/06/18 14:19 Hep B Core IgM Ab Non-reactive (NonReactive) 03/06/18 14:19 Hepatitis C Antibody Non-reactive (NonReactive) 03/06/18 14:19 Miscellaneous Test Flexitest 1 H 03/05/18 Unknown Blood Type O POSITIVE 03/05/18 10:34 Antibody Screen Negative 03/05/18 10:34 Crossmatch See Detail 03/05/18 10:34
[2018-03-07] MEDS: D10W 1,000 ML IV SCH (15:57)
[2018-03-07] MEDS: Vasostrict 20 UNIT in NACL 0.9% 100 ML IV SCH (19:13)
[2018-03-08] MEDS ORDERED: GLUCAGEN IV ONE (00:22)
[2018-03-08] MEDS ORDERED: D50W (25GM) Syringe IV STA (00:22)
[2018-03-08] MEDS ORDERED: WATER FOR INJ (PF) ONE (00:37)
[2018-03-08] MEDS: LANOXIN IV SCH (00:41)
[2018-03-08] MEDS: SODIUM BICARBONATE 150 MEQ in D5W 1,000 ML IV SCH ×2 (00:47→10:14)
[2018-03-08] MEDS: LEVOPHED 8 MG in NACL 0.9% 250ML 242 ML IV SCH ×3 (03:35→13:51)
[2018-03-08] MEDS: ADRENALIN 8 MG in NACL 0.9% 250ML 242 ML IV SCH (03:35)
[2018-03-08] MEDS: Vasostrict 20 UNIT in NACL 0.9% 100 ML IV SCH ×2 (04:23→14:40)
[2018-03-08] MEDS: NEO-SYNEPHRINE 100 MG in NACL 0.9% 90 ML IV SCH ×4 (04:24→14:02)
[2018-03-08] MEDS: ZOSYN/NS 2.25 GM/50ML 2.25 GM/50 ML BAG IV SCH (05:38)
[2018-03-08] MEDS ORDERED: HumuLIN R SUB-Q SCH (08:00)
--- NOTE | 2018-03-08 09:54 | Progress Note ---
Assessment and Plan Cardiorespiratory arrest. Severe shock.Improved MAP.Weaning pressors Hypoglycemia. Sepsis. Acute respiratory failure. Secondary to the above. On ventilatory support Metabolic and respiratory acidosis, high anion gap Aspiration pneumonia LT lung ? CHF with high BNP Shock liver changes Severe thrombocytopenia,DIC Severe metabolic encephalopathy, hypoxic. Now leading prognosis,see also neuro comments Recommendations DC steroids BS monitoring, keep ~ 120-180 mg/dl Comfort care No family or relatives to discuss care and prognosis.Been reviewed by ethics commette chair also. In view of neurologic state, move to DNR code status recommended. Wean pressors Mechanical ventilation support, adjust FiO2 down as tolerated Prognosis poor No family available for chest discussion. Critical care time was 31 minutes of [id number] evaluation and coordination of care Subjective Date of service: 03/08/18 Principal diagnosis: shock,sepsis,coma,out of hospital arrest Interval history: Comatose off sedation,intubated Objective Vital Signs - 12hr 03/07/18 03/07/18 03/07/18 22:00 22:15 22:30 Temperature Pulse Rate 94 H 95 H 96 H Pulse Rate [ From Monitor] Respiratory 30 H 30 H 30 H Rate Blood Pressure 108/84 111/81 109/82 O2 Sat by Pulse 59 L 61 L 92 Oximetry 03/07/18 03/07/18 03/07/18 22:45 23:00 23:16 Temperature Pulse Rate 92 H 93 H 97 H Pulse Rate [ From Monitor] Respiratory 30 H 30 H 30 H Rate Blood Pressure 118/87 118/87 135/82 O2 Sat by Pulse 73 L Oximetry 03/07/18 03/07/18 03/07/18 23:30 23:32 23:44 Temperature 96.8 F L Pulse Rate 97 H 96 H Pulse Rate [ From Monitor] Respiratory 30 H Rate Blood Pressure 127/85 135/82 O2 Sat by Pulse Oximetry 03/07/18 03/08/18 03/08/18 23:45 00:00 00:14 Temperature Pulse Rate 96 H 96 H 98 H Pulse Rate [ From Monitor] Respiratory 30 H 30 H 30 H Rate Blood Pressure 119/73 129/79 129/79 O2 Sat by Pulse 68 L 69 L Oximetry 03/08/18 03/08/18 03/08/18 00:15 00:30 00:41 Temperature Pulse Rate 96 H 95 H 98 H Pulse Rate [ From Monitor] Respiratory 30 H 30 H Rate Blood Pressure 123/74 144/84 172/89 O2 Sat by Pulse 69 L 89 Oximetry 03/08/18 03/08/18 03/08/18 00:45 01:00 01:16 Temperature Pulse Rate 90 92 H 87 Pulse Rate [ From Monitor] Respiratory 30 H 30 H 30 H Rate Blood Pressure 169/85 167/84 105/64 O2 Sat by Pulse 78 L 80 L 81 L Oximetry 03/08/18 03/08/18 03/08/18 01:30 01:45 02:00 Temperature Pulse Rate 88 87 87 Pulse Rate [ From Monitor] Respiratory 30 H 30 H 30 H Rate Blood Pressure 99/63 101/56 101/56 O2 Sat by Pulse 89 90 93 Oximetry 03/08/18 03/08/18 03/08/18 02:15 02:26 02:30 Temperature Pulse Rate 86 96 H 85 Pulse Rate [ From Monitor] Respiratory 31 H 30 H 30 H Rate Blood Pressure 98/57 86/55 O2 Sat by Pulse 69 L 92 52 L Oximetry 03/08/18 03/08/18 03/08/18 02:45 03:00 03:16 Temperature Pulse Rate 83 82 82 Pulse Rate [ From Monitor] Respiratory 30 H 30 H 30 H Rate Blood Pressure 95/46 95/46 95/46 O2 Sat by Pulse 71 L 78 L 78 L Oximetry 03/08/18 03/08/18 03/08/18 03:30 03:37 03:46 Temperature 96.8 F L Pulse Rate 83 82 79 Pulse Rate [ From Monitor] Respiratory 30 H 30 H Rate Blood Pressure 95/46 105/51 105/51 O2 Sat by Pulse 78 L 76 L Oximetry 03/08/18 03/08/18 03/08/18 04:00 04:16 04:30 Temperature Pulse Rate 79 129 H 124 H Pulse Rate [ From Monitor] Respiratory 30 H 30 H 30 H Rate Blood Pressure 105/51 105/51 105/51 O2 Sat by Pulse 67 L 59 L 61 L Oximetry 03/08/18 03/08/18 03/08/18 04:46 05:00 05:16 Temperature Pulse Rate 138 H 126 H 136 H Pulse Rate [ From Monitor] Respiratory 30 H 30 H 30 H Rate Blood Pressure 139/106 139/106 139/106 O2 Sat by Pulse 38 L 44 L 48 L Oximetry 03/08/18 03/08/18 03/08/18 05:30 05:47 06:00 Temperature Pulse Rate 132 H 131 H 128 H Pulse Rate [ From Monitor] Respiratory 30 H 30 H 30 H Rate Blood Pressure 139/106 147/109 O2 Sat by Pulse 60 L 52 L 38 L Oximetry 03/08/18 03/08/18 03/08/18 06:16 06:30 06:46 Temperature Pulse Rate 128 H 132 H 130 H Pulse Rate [ From Monitor] Respiratory 30 H 30 H 30 H Rate Blood Pressure 147/109 147/109 147/109 O2 Sat by Pulse 49 L 33 L 30 L Oximetry 03/08/18 03/08/18 03/08/18 07:00 07:16 07:30 Temperature Pulse Rate 126 H 128 H 127 H Pulse Rate [ From Monitor] Respiratory 30 H 30 H 30 H Rate Blood Pressure 147/109 147/109 147/109 O2 Sat by Pulse 28 L 24 L 18 L Oximetry 03/08/18 03/08/18 03/08/18 07:44 07:46 08:00 Temperature 97.6 F Pulse Rate 131 H 126 H Pulse Rate [ 123 H From Monitor] Respiratory 30 H 30 H 30 H Rate Blood Pressure 147/109 147/109 O2 Sat by Pulse 92 41 L 21 L Oximetry 03/08/18 03/08/18 08:16 09:26 Temperature Pulse Rate 124 H 118 H Pulse Rate [ From Monitor] Respiratory 30 H Rate Blood Pressure 147/109 O2 Sat by Pulse 14 L Oximetry Constitutional: comatose, other (endotracheal tube in position) Eyes: non-icteric Neck: no JVD (intubated orally) Ascultation: Bilateral: clear, diminished breath sounds, rhonchi (occasional) Cardiovascular: regular rate and rhythm (tachycardic) Gastrointestinal: normoactive bowel sounds, non-distended Integumentary: normal Extremities: no edema, other (left pretibial IO line in place) Neurologic: other (poor pupil response, no corneal,comatose, no posturing or toxic stimuli resposne) CBC and BMP: 03/07/18 05:00 03/08/18 01:05 ABG, PT/INR, D-dimer: ABG POC ABG pH 7.284 (7.35-7.45) L 03/07/18 04:01 POC ABG pCO2 29.0 (35-45) L 03/07/18 04:01 POC ABG pO2 91 (80-105) 03/07/18 04:01 POC ABG HCO3 13.8 03/07/18 04:01 POC ABG Total CO2 15 03/07/18 04:01 POC ABG O2 Sat 96 03/07/18 04:01 Abnormal lab findings: Abnormal Labs 03/03/18 03/03/18 03/03/18 17:41 19:31 19:31 WBC 14.6 H RBC 3.28 L Hgb 9.3 L Hct 28.7 L MCH RDW 20.9 H Plt Count [place] # Seg Neuts % (Manual) 79.0 H Lymphocytes % (Manual) Seg Neutrophils # Seg Neutrophils # Man 11.5 H Lymphocytes # (Manual) POC ABG pH 6.867 L POC ABG pCO2 64.2 H POC ABG pO2 272 H Sodium Potassium Chloride 97.4 L Carbon Dioxide 16 L BUN Creatinine Glucose 140 H POC Glucose Lactic Acid Calcium 7.8 L Magnesium Total Bilirubin Direct Bilirubin AST 2089 H ALT 423 H Alkaline Phosphatase 160 H Total Creatine Kinase CK-MB (CK-2) Troponin T 0.063 H C-Reactive Protein NT-Pro-B Natriuret Pep 2107 H Total Protein 5.4 L Albumin 1.7 L LDL Cholesterol Direct 45 L HDL Cholesterol 19 L Miscellaneous Test Crossmatch 03/03/18 03/03/18 03/03/18 19:31 20:10 20:56 WBC RBC Hgb Hct MCH RDW Plt Count [place] # Seg Neuts % (Manual) Lymphocytes % (Manual) Seg Neutrophils # Seg Neutrophils # Man Lymphocytes # (Manual) POC ABG pH 7.131 L POC ABG pCO2 49.2 H POC ABG pO2 Sodium Potassium Chloride Carbon Dioxide BUN Creatinine Glucose POC Glucose Lactic Acid 13.20 H* 12.90 H* Calcium Magnesium Total Bilirubin Direct Bilirubin AST ALT Alkaline Phosphatase Total Creatine Kinase CK-MB (CK-2) Troponin T C-Reactive Protein NT-Pro-B Natriuret Pep Total Protein Albumin LDL Cholesterol Direct HDL Cholesterol Miscellaneous Test Crossmatch 03/03/18 03/04/18 03/04/18 21:41 04:34 08:39 WBC RBC Hgb Hct MCH RDW Plt Count [place] # Seg Neuts % (Manual) Lymphocytes % (Manual) Seg Neutrophils # Seg Neutrophils # Man Lymphocytes # (Manual) POC ABG pH 7.151 L POC ABG pCO2 POC ABG pO2 230 H Sodium Potassium Chloride Carbon Dioxide BUN Creatinine Glucose POC Glucose 176 H Lactic Acid 13.10 H* Calcium Magnesium Total Bilirubin Direct Bilirubin AST ALT Alkaline Phosphatase Total Creatine Kinase CK-MB (CK-2) Troponin T C-Reactive Protein NT-Pro-B Natriuret Pep Total Protein Albumin LDL Cholesterol Direct HDL Cholesterol Miscellaneous Test Crossmatch 03/04/18 03/04/18 03/04/18 10:52 14:30 14:30 WBC RBC Hgb Hct MCH RDW Plt Count [place] # Seg Neuts % (Manual) Lymphocytes % (Manual) Seg Neutrophils # Seg Neutrophils # Man Lymphocytes # (Manual) POC ABG pH 7.147 L POC ABG pCO2 POC ABG pO2 66 L Sodium Potassium 5.1 H Chloride Carbon Dioxide 14 L BUN 23 H Creatinine 2.0 H D Glucose 108 H POC Glucose Lactic Acid 10.50 H* Calcium 6.5 L D Magnesium Total Bilirubin Direct Bilirubin AST 2380 H ALT 470 H Alkaline Phosphatase Total Creatine Kinase 5787 H CK-MB (CK-2) 41.0 H Troponin T 0.177 H* D C-Reactive Protein NT-Pro-B Natriuret Pep Total Protein 4.9 L Albumin 1.8 L LDL Cholesterol Direct HDL Cholesterol Miscellaneous Test Crossmatch 03/04/18 03/04/18 03/04/18 14:30 14:30 14:32 WBC 21.2 H RBC 3.54 L Hgb 9.6 L Hct MCH 27 L RDW 21.0 H Plt Count [place] # 1.4 H Seg Neuts % (Manual) 87.0 H Lymphocytes % (Manual) 4.0 L Seg Neutrophils # 20.0 H Seg Neutrophils # Man 18.4 H Lymphocytes # (Manual) 0.8 L POC ABG pH 7.166 L POC ABG pCO2 POC ABG pO2 77 L Sodium Potassium Chloride Carbon Dioxide BUN Creatinine Glucose POC Glucose Lactic Acid Calcium Magnesium 1.60 L Total Bilirubin Direct Bilirubin AST ALT Alkaline Phosphatase Total Creatine Kinase CK-MB (CK-2) Troponin T C-Reactive Protein NT-Pro-B Natriuret Pep Total Protein Albumin LDL Cholesterol Direct HDL Cholesterol Miscellaneous Test Crossmatch 03/04/18 03/04/18 03/04/18 18:19 23:06 23:06 WBC RBC Hgb Hct MCH RDW Plt Count [place] # Seg Neuts % (Manual) Lymphocytes % (Manual) Seg Neutrophils # Seg Neutrophils # Man Lymphocytes # (Manual) POC ABG pH POC ABG pCO2 POC ABG pO2 Sodium Potassium Chloride Carbon Dioxide BUN Creatinine Glucose POC Glucose Lactic Acid 11.20 H* 10.60 H* Calcium Magnesium Total Bilirubin Direct Bilirubin AST ALT Alkaline Phosphatase Total Creatine Kinase CK-MB (CK-2) Troponin T C-Reactive Protein 12.80 H NT-Pro-B Natriuret Pep Total Protein Albumin LDL Cholesterol Direct HDL Cholesterol Miscellaneous Test Crossmatch 03/04/18 03/04/18 03/05/18 23:06 Unknown 06:05 WBC RBC Hgb Hct MCH RDW Plt Count [place] # Seg Neuts % (Manual) Lymphocytes % (Manual) Seg Neutrophils # Seg Neutrophils # Man Lymphocytes # (Manual) POC ABG pH 7.097 L POC ABG pCO2 31.5 L POC ABG pO2 197 H Sodium Potassium 5.3 H Chloride Carbon Dioxide BUN Creatinine Glucose POC Glucose Lactic Acid Calcium Magnesium Total Bilirubin Direct Bilirubin AST ALT Alkaline Phosphatase Total Creatine Kinase 497 H CK-MB (CK-2) 4.1 H Troponin T 0.053 H C-Reactive Protein NT-Pro-B Natriuret Pep Total Protein Albumin LDL Cholesterol Direct HDL Cholesterol Miscellaneous Test Crossmatch 03/05/18 03/05/18 03/05/18 08:57 08:57 08:57 WBC 15.2 H RBC 2.54 L Hgb 6.9 L Hct 21.5 L D MCH 27 L RDW 20.7 H Plt Count 73 L [place] # Seg Neuts % (Manual) Lymphocytes % (Manual) 8.0 L Seg Neutrophils # Seg Neutrophils # Man 9.6 H Lymphocytes # (Manual) POC ABG pH POC ABG pCO2 POC ABG pO2 Sodium Potassium 5.2 H Chloride Carbon Dioxide 15 L BUN 23 H Creatinine 2.1 H Glucose 6 L* POC Glucose Lactic Acid 12.10 H* Calcium 4.0 L* D Magnesium Total Bilirubin Direct Bilirubin AST 3549 H ALT 536 H Alkaline Phosphatase Total Creatine Kinase CK-MB (CK-2) Troponin T C-Reactive Protein NT-Pro-B Natriuret Pep Total Protein 3.1 L D Albumin 1.0 L LDL Cholesterol Direct HDL Cholesterol Miscellaneous Test Crossmatch 03/05/18 03/05/18 03/05/18 08:57 10:34 10:36 WBC RBC Hgb Hct MCH RDW Plt Count [place] # Seg Neuts % (Manual) Lymphocytes % (Manual) Seg Neutrophils # Seg Neutrophils # Man Lymphocytes # (Manual) POC ABG pH POC ABG pCO2 POC ABG pO2 Sodium Potassium Chloride Carbon Dioxide BUN Creatinine Glucose POC Glucose 236 H Lactic Acid Calcium Magnesium 1.50 L Total Bilirubin Direct Bilirubin AST ALT Alkaline Phosphatase Total Creatine Kinase CK-MB (CK-2) Troponin T C-Reactive Protein NT-Pro-B Natriuret Pep Total Protein Albumin LDL Cholesterol Direct HDL Cholesterol Miscellaneous Test Crossmatch See Detail 03/05/18 03/05/18 03/05/18 14:45 16:37 21:04 WBC RBC Hgb Hct MCH RDW Plt Count [place] # Seg Neuts % (Manual) Lymphocytes % (Manual) Seg Neutrophils # Seg Neutrophils # Man Lymphocytes # (Manual) POC ABG pH 7.058 L 7.055 L POC ABG pCO2 27.7 L 29.3 L POC ABG pO2 247 H 123 H Sodium Potassium Chloride Carbon Dioxide BUN Creatinine Glucose POC Glucose Lactic Acid 13.00 H* Calcium Magnesium Total Bilirubin Direct Bilirubin AST ALT Alkaline Phosphatase Total Creatine Kinase CK-MB (CK-2) Troponin T C-Reactive Protein NT-Pro-B Natriuret Pep Total Protein Albumin LDL Cholesterol Direct HDL Cholesterol Miscellaneous Test Crossmatch 03/05/18 03/06/18 03/06/18 Unknown 00:36 04:59 WBC RBC Hgb Hct MCH RDW Plt Count [place] # Seg Neuts % (Manual) Lymphocytes % (Manual) Seg Neutrophils # Seg Neutrophils # Man Lymphocytes # (Manual) POC ABG pH 7.081 L POC ABG pCO2 28.2 L POC ABG pO2 Sodium Potassium Chloride Carbon Dioxide BUN Creatinine Glucose POC Glucose 112 H Lactic Acid Calcium Magnesium Total Bilirubin Direct Bilirubin AST ALT Alkaline Phosphatase Total Creatine Kinase CK-MB (CK-2) Troponin T C-Reactive Protein NT-Pro-B Natriuret Pep Total Protein Albumin LDL Cholesterol Direct HDL Cholesterol Miscellaneous Test Flexitest 1 H Crossmatch 03/06/18 03/06/18 03/06/18 07:34 09:00 09:00 WBC 24.2 H RBC Hgb Hct MCH RDW 19.6 H Plt Count 73 L [place] # Seg Neuts % (Manual) Lymphocytes % (Manual) Seg Neutrophils # Seg Neutrophils # Man Lymphocytes # (Manual) POC ABG pH 7.197 L POC ABG pCO2 29.8 L POC ABG pO2 74 L Sodium 148 H Potassium 7.1 H* D Chloride Carbon Dioxide 13 L BUN 33 H Creatinine 3.2 H D Glucose 213 H POC Glucose Lactic Acid Calcium 4.2 L* Magnesium Total Bilirubin 1.70 H Direct Bilirubin 1.6 H AST 1427 H ALT 1087 H Alkaline Phosphatase Total Creatine Kinase CK-MB (CK-2) Troponin T C-Reactive Protein NT-Pro-B Natriuret Pep Total Protein 3.0 L Albumin 0.8 L LDL Cholesterol Direct HDL Cholesterol Miscellaneous Test Crossmatch 03/06/18 03/06/18 03/07/18 13:55 23:51 00:30 WBC RBC Hgb Hct MCH RDW Plt Count [place] # Seg Neuts % (Manual) Lymphocytes % (Manual) Seg Neutrophils # Seg Neutrophils # Man Lymphocytes # (Manual) POC ABG pH POC ABG pCO2 POC ABG pO2 Sodium Potassium Chloride Carbon Dioxide BUN Creatinine Glucose POC Glucose 185 H 64 L 118 H Lactic Acid Calcium Magnesium Total Bilirubin Direct Bilirubin AST ALT Alkaline Phosphatase Total Creatine Kinase CK-MB (CK-2) Troponin T C-Reactive Protein NT-Pro-B Natriuret Pep Total Protein Albumin LDL Cholesterol Direct HDL Cholesterol Miscellaneous Test Crossmatch 03/07/18 03/07/18 03/07/18 04:01 05:00 05:00 WBC 23.0 H RBC 3.62 L Hgb Hct MCH RDW 20.1 H Plt Count 31 L [place] # Seg Neuts % (Manual) Lymphocytes % (Manual) Seg Neutrophils # Seg Neutrophils # Man Lymphocytes # (Manual) POC ABG pH 7.284 L POC ABG pCO2 29.0 L POC ABG pO2 Sodium Potassium 5.4 H D Chloride 96.9 L Carbon Dioxide 14 L BUN 33 H Creatinine 3.2 H Glucose 313 H POC Glucose Lactic Acid Calcium 3.9 L* Magnesium Total Bilirubin Direct Bilirubin AST ALT Alkaline Phosphatase Total Creatine Kinase CK-MB (CK-2) Troponin T C-Reactive Protein NT-Pro-B Natriuret Pep Total Protein Albumin LDL Cholesterol Direct HDL Cholesterol Miscellaneous Test Crossmatch 03/07/18 03/07/18 03/07/18 14:21 18:40 18:45 WBC RBC Hgb Hct MCH RDW Plt Count [place] # Seg Neuts % (Manual) Lymphocytes % (Manual) Seg Neutrophils # Seg Neutrophils # Man Lymphocytes # (Manual) POC ABG pH POC ABG pCO2 POC ABG pO2 Sodium Potassium Chloride Carbon Dioxide BUN Creatinine Glucose POC Glucose 214 H < 40 L 297 H Lactic Acid Calcium Magnesium Total Bilirubin Direct Bilirubin AST ALT Alkaline Phosphatase Total Creatine Kinase CK-MB (CK-2) Troponin T C-Reactive Protein NT-Pro-B Natriuret Pep Total Protein Albumin LDL Cholesterol Direct HDL Cholesterol Miscellaneous Test Crossmatch 03/08/18 03/08/18 03/08/18 00:20 00:25 00:38 WBC RBC Hgb Hct MCH RDW Plt Count [place] # Seg Neuts % (Manual) Lymphocytes % (Manual) Seg Neutrophils # Seg Neutrophils # Man Lymphocytes # (Manual) POC ABG pH POC ABG pCO2 POC ABG pO2 Sodium Potassium Chloride Carbon Dioxide BUN Creatinine Glucose 692 H* POC Glucose < 40 L > 500 H Lactic Acid Calcium Magnesium Total Bilirubin Direct Bilirubin AST ALT Alkaline Phosphatase Total Creatine Kinase CK-MB (CK-2) Troponin T C-Reactive Protein NT-Pro-B Natriuret Pep Total Protein Albumin LDL Cholesterol Direct HDL Cholesterol Miscellaneous Test Crossmatch 03/08/18 03/08/18 01:05 05:36 WBC RBC Hgb Hct MCH RDW Plt Count [place] # Seg Neuts % (Manual) Lymphocytes % (Manual) Seg Neutrophils # Seg Neutrophils # Man Lymphocytes # (Manual) POC ABG pH POC ABG pCO2 POC ABG pO2 Sodium Potassium Chloride Carbon Dioxide BUN Creatinine Glucose 471 H POC Glucose > 500 H Lactic Acid Calcium Magnesium Total Bilirubin Direct Bilirubin AST ALT Alkaline Phosphatase Total Creatine Kinase CK-MB (CK-2) Troponin T C-Reactive Protein NT-Pro-B Natriuret Pep Total Protein Albumin LDL Cholesterol Direct HDL Cholesterol Miscellaneous Test Crossmatch
[2018-03-08] MEDS: HEPARIN SUB-Q SCH (10:16)
[2018-03-08] MEDS: PEPCID IV SCH (10:16)
[2018-03-08] MEDS ORDERED: CLEOCIN 600 MG/50 mL 600 MG/50 ML BAG IV SCH (11:00)
--- NOTE | 2018-03-08 11:19 | Progress Note ---
Assessment and Plan Assessment: 1) [id number] cardiac arrest 2) Shock post cardiac arrest ? cardiac ?less likely septic: source ? lungs, ? skin Toxic Shock Syndrome. Procal=88 / CRP=12.8 3) Left pneumonia ? 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 No possibilities for meaningful recovery. She is now DNR Thank you for your consultation, will follow up with you. Ana Dumont MD Infectious Diseases Specialist [facility] ([facility]) M [phone] O [phone] Subjective Date of service: 03/08/18 Principal diagnosis: shock,sepsis,coma,out of hospital arrest Interval history: Remains critically ill comatose, no gag reflex or corneal reflex, tmax 98, still on 3 pressors - levo, vaso and epi Microbiology: Blood cultures: 03/05 ngtd Urine cultures: Respiratory cultures: 03/04 Kelly albicans Wound cultures: Current Antimicrobials: Zosyn Vancomycin Objective - Exam Narrative Exam: General appearance: comatose intubated Eyes: anicteric sclerae, moist conjunctivae; no lid-lag; minimal pupils reaction , no corneal reflex HENT: Atraumatic; oropharynx +ETT, OGT, NO gag reflex Neck: Trachea midline; supple, no thyromegaly or lymphadenopathy Lungs: +analilia rhonchi CV: tachy Abdomen: Soft, non-tender; no masses or hepatosplenomegaly Extremities: No peripheral edema or extremity lymphadenopathy Skin:+extensive bulla formation on analilia legs, abdomen, chest with erythema Psych: comatose Neuro: comatose Lines: - Constitutional Vitals: Vital Signs Temp Pulse Resp BP Pulse Ox 97.6 F 113 H 30 H 147/109 27 L 03/08/18 08:00 03/08/18 10:30 03/08/18 10:30 03/08/18 10:30 03/08/18 10:30 Temperature -Last 24 Hours Temperature 97.6 F Temperature 96.8 F Temperature 96.8 F Temperature 97.2 F Temperature 96.4 F Temperature 98.0 F - Labs CBC & Chem 7: 03/07/18 05:00 03/08/18 01:05 Labs: Abnormal lab results 03/05/18 03/07/18 03/07/18 Range/Units Unknown 14:21 18:40 Glucose (65-100) mg/dL POC Glucose 214 H < 40 L (70-105) Miscellaneous Test Flexitest 1 H 03/07/18 03/08/18 03/08/18 Range/Units 18:45 00:20 00:25 Glucose 692 H* (65-100) mg/dL POC Glucose 297 H < 40 L (70-105) Miscellaneous Test 03/08/18 03/08/18 03/08/18 Range/Units 00:38 01:05 05:36 Glucose 471 H (65-100) mg/dL POC Glucose > 500 H > 500 H (70-105) Miscellaneous Test
[2018-03-08] MEDS ORDERED: DIFLUCAN 200 MG/100 ML BAG IV SCH (13:00)
[2018-03-08 14:59] VITALS: BP 143/80
--- NOTE | 2018-03-08 15:26 | Progress Note ---
Assessment and Plan Cont supportive measures. No systemic anticoagulation in regards to afib due to GI bleed and thrombocytopenia. Pt has been made AND/DNR code status. The patient has been seen in conjunction with Dr. Light who agrees with the assessment and plan of care. - Patient Problems (1) Cardiopulmonary arrest with successful resuscitation Current Visit: Yes Status: Acute (2) Respiratory failure requiring intubation Current Visit: Yes Status: Acute (3) Paroxysmal SVT (supraventricular tachycardia) Current Visit: Yes Status: Acute (4) Altered mental status Current Visit: Yes Status: Acute (5) Pneumonia Current Visit: Yes Status: Acute Qualifiers: Pneumonia type: due to unspecified organism Laterality: left Lung location: unspecified part of lung Qualified Code(s): J18.9 - Pneumonia, unspecified organism (6) Sepsis Current Visit: Yes Status: Acute Qualifiers: Sepsis type: sepsis due to unspecified organism Qualified Code(s): A41.9 - Sepsis, unspecified organism (7) Metabolic acidosis Current Visit: Yes Status: Acute (8) GI bleed Current Visit: Yes Status: Suspected (9) Anemia Current Visit: Yes Status: Acute (10) Elevated troponin Current Visit: Yes Status: Acute (11) Transaminitis Current Visit: Yes Status: Acute (12) Malnutrition Current Visit: Yes Status: Chronic (13) Acute renal failure Current Visit: Yes Status: Acute (14) Hyperkalemia Current Visit: Yes Status: Acute (15) Hypocalcemia Current Visit: Yes Status: Acute (16) Atrial fibrillation Current Visit: Yes Status: Acute Subjective Date of service: 03/08/18 Principal diagnosis: shock,sepsis,coma,out of hospital arrest Interval history: pt remains intubated, nonresponsive, not on sedation, requiring multiple vasopressors. no family at bedside. in afib with intermittent RVR on telemetry. Objective Last Vital Signs Temp 98.2 F 03/08/18 12:00 Pulse 63 03/08/18 14:16 Resp 30 H 03/08/18 14:46 BP 143/80 03/08/18 14:46 Pulse Ox 15 L 03/08/18 14:46 - Physical Examination General: Other (intubated, nonresponsive, not on sedation) HEENT: Positive: Other (pupils fixed) Cardiac: Positive: irregularly irregular, S1/S2 Lungs: Positive: Ventilated Respirations Neuro: Positive: Other (intubated, nonresponsive, not on sedation) Skin: Negative: Rash, Wound Musculoskeletal: No Fluid Collection Extremities: Absent: edema - Labs and Meds Comprehensive Metabolic Panel 03/08/18 03/08/18 Range/Units 00:25 01:05 Glucose 692 H* 471 H (65-100) mg/dL - Imaging and Cardiology EKG: report reviewed, image reviewed Echo: report reviewed (TDS, EF 65-70%, mild to mod LVH, hyperdynamic LV, abnormal diastolic function, RA mildly dilated, mod TR, trace IL. ) - Telemetry EKG Rhythm: Atrial Fibrillation - EKG Sinus rhythms and dysrhythmias: sinus rhythm
--- NOTE | 2018-03-08 16:57 | Death Summary ---
Summary - Providers Date of service: 03/08/18 Consults: 03/03/18 22:48 Consult to Physician [CONS] Routine Comment: Spoke to @ [id number] Consulting Provider: MELITA MENDOZA Physician Instructions: Reason For Exam: S/P CARDIOPULMONARY ARREST, ON EPI. DRIP/INUBATED 03/04/18 06:00 Consult to Physician [CONS] Routine Comment: Consulting Provider: ALTAF REYEZ Physician Instructions: Reason For Exam: S/P CARDIOPULMONARY ARREST WITH ELEVATED TROPONIN 03/04/18 09:34 Consult to Dietitian/Nutrition [CONS] Routine Physician Instructions: Reason For Exam: Reason for Consult: Malnutrition Consult to Physician [CONS] Routine Comment: Consulting Provider: ANNY RANGEL Physician Instructions: Reason For Exam: sepsis, pneumonia 03/04/18 10:24 PICC Line Insertion [Consult to PICC Line RN] [CONS] Stat Reason For Exam: Vasopressors Type Line:: PICC 03/04/18 18:02 Consult to Physician [CONS] Routine Comment: Consulting Provider: LAN BUTLER Physician Instructions: Reason For Exam: Acute Kidney Injury 03/05/18 22:18 Consult to Physician [CONS] Routine Comment: Consulting Provider: MATEUS MONET Physician Instructions: Reason For Exam: encephalopathy combined metabolic and toxic 03/06/18 10:35 Consult to Physician [CONS] Routine Comment: Consulting Provider: MIGUEL ALVAREZ Physician Instructions: Reason For Exam: vasc cath placement 03/06/18 12:01 Consult to Ethics Committee [CONS] Routine Reason For Exam: Consult for aggressiveness of goals of care. Attending: KAELYN PINEDA MD - summary Date of admission: 03/03/18 22:41 Date of : 03/08/18 Reason for admission: cardiopulmonary arrest Significant findings: Patient is a 62 year old female recently discharged from [facility] to a personal shelter. Per child care director patient was homeless at the time of admission to [facility] and no other information was available. The patient was found unresponsive and EMS called and patient was noted to have a pulseless arrest was intubated and transported ACLS to the hospital. On arrival the patient was admitted to the ICU with aggressive measures for resuscitation included maxed out pressors. Initiation of hemodialysis. Insulin control. Patient was seen by hvac mechanic, watch electrician, neurologist, urologist, was determined the patient had severe brainstem damage with no significant chance of survival. Attempt was done to obtain patient in for patient in respect to family this was unsuccessful. Ethics committee was consulted and patient was admitted and the period despite aggressive measures patient unfortunately at 3 PM on 03/08/2018. Information was relayed back to last note caregiver. Out of hospital cardiopulmonary arrest Hypovoluemic shock Severe Hyperkalemia Acute Respiratory Failure with hypoxia on Mechanical ventilation day 4 Combined Metabolic and Respiratory acidosis Acute metabolic encephalopathy Anoxic brain injury suspected Shock liver syndrome JIM secondary to vasomotor nephropathy Pancytopenia ?Sepsis Severe Protein calorie malnutrition Severe Anemia Pancytopenia Type 2 ND Transaminitis
[2018-03-08] MEDS ORDERED: LANTUS SUB-Q SCH ×2 (22:00)
== END 2018-03-08 16:18 | DRG 870 ==
LOC: ED 17:13 → CC1 22:41 → UNDODISIN 03-07 20:50
PROVIDERS: ADMIT Internal Medicine; ATTEND Internal Medicine
PROC: 5A1955Z Respiratory Ventilation, Greater than 96 Consecutive Hours (ICD-10-PCS; principal; 2018-03-03)
PROC: 5A12012 Performance of Cardiac Output, Single, Manual (ICD-10-PCS; 2018-03-03)
PROC: 4A033R1 Measurement of Arterial Saturation, Peripheral, Percutaneous Approach (ICD-10-PCS; 2018-03-03)
PROC: 02HV33Z Insertion of Infusion Device into Superior Vena Cava, Percutaneous Approach (ICD-10-PCS; 2018-03-04)
PROC: 30233N1 Transfusion of Nonautologous Red Blood Cells into Peripheral Vein, Percutaneous Approach (ICD-10-PCS; 2018-03-05)
PROC: 5A1D70Z Performance of Urinary Filtration, Intermittent, Less than 6 Hours Per Day (ICD-10-PCS; 2018-03-06)
DX: A41.9 Sepsis, unspecified organism (principal); J69.0 Pneumonitis due to inhalation of food and vomit; J96.01 Acute respiratory failure with hypoxia; G93.41 Metabolic encephalopathy; N17.0 Acute kidney failure with tubular necrosis; E43 Unspecified severe protein-calorie malnutrition; I21.A1 Myocardial infarction type 2; I46.9 Cardiac arrest, cause unspecified; E87.2 Acidosis; R57.1 Hypovolemic shock; E87.5 Hyperkalemia; S06.890A Other specified intracranial injury without loss of consciousness, initial encounter; D61.818 Other pancytopenia; Z68.1 Body mass index [BMI] 19.9 or less, adult; D64.9 Anemia, unspecified; R74.0 Nonspecific elevation of levels of transaminase and lactic acid dehydrogenase [LDH]; I47.1 Supraventricular tachycardia; K92.2 Gastrointestinal hemorrhage, unspecified; E83.51 Hypocalcemia; I48.91 Unspecified atrial fibrillation; E16.2 Hypoglycemia, unspecified; E83.42 Hypomagnesemia; Z79.899 Other long term (current) drug therapy
CPT/HCPCS: 36415; 36600; 71045; 80048; 80053; 80061; 80074; 80202; 80307; 82140; 82550; 82553; 82803; 82947; 82962; 83735; 83880; 84132; 84484; 85007; 85025; 85027; 86140; 86850; 86900; 86901; 86920; 87040; 87070; 87205; 93005; 93010; 93306; 94002; 94003; 96361; 96365; 96367; J0153; J0171; J0610; J1160; J1450; J1610; J1644; J1720; J1815; J2370; J2543; J3370; J3475; J7030; J7040; J7050; J7070; P9016